=== PATIENT | female | born 1955 | race Caucasian/White ===

== ENCOUNTER → 2018-03-16 12:32 | Outpatient (CLI) | payer OTHER, SELFPAY ==
--- NOTE | 2018-03-16 | DI.MRI.S_ITS ---
PROCEDURE: MR KNEE RT WO CON INDICATIONS: RIGHT KNEE PAIN TECHNIQUE: Noncontrast sagittal PD fast spin echo and T2 fast spin echo with fat saturation, sagittal 3-D FLASH with fat saturation; coronal T1 spin echo and PD fast spin echo with fat saturation, and axial PD fast spin echo with fat saturation through the knee. COMPARISON: None. FINDINGS: Image quality: Excellent. Menisci: The medial and lateral menisci demonstrate mildly degenerated morphology and internal signal. The meniscal root ligaments appear intact. Cruciate ligaments: The anterior and posterior cruciate ligaments appear intact but there is elevated flow signal within the anterior cruciate ligament with indistinct margination of the fibrosis, but without elongation or rupture. Medial structures: The medial collateral ligament appears intact. The posterior oblique ligament, semimembranosus tendon insertions, oblique popliteal ligament, and meniscocapsular junction appear intact. Visualized portions of the pes anserinus tendons appear normal. No abnormal bursal fluid. Lateral structures: The lateral collateral ligament, long and short heads of the biceps femoris tendon appear intact. The popliteus tendon appears normal; the popliteofibular ligament appears intact. The posterosuperior and anteroinferior popliteomeniscal fascicles appear intact. The arcuate and fabellofibular ligaments appear intact, on either side of the lateral inferior geniculate artery. Iliotibial band appears normal. Anterior structures: The quadriceps and patellar tendons appear intact. Patellar alignment is normal. No femoral trochlear dysplasia or ventral trochlear prominence. No edema in the infrapatellar fat pad. Bones and cartilage: No bone marrow contusions or fractures. The cartilage of the medial and lateral femorotibial compartments, as well as the patellofemoral compartment, appears reduced to a mild degree in thickness. Joint space: There is mild excess of knee joint fluid, without intra-articular loose body. No Reed's cyst. Normal appearing synovial plicae are incidentally noted. IMPRESSION: Chronic mild to moderate degenerative change involves the thinning of the articular cartilage in all 3 compartments, but greater at the medial than the lateral compartment and minimal at the patellofemoral joint. Note is made of a mild joint effusion without loose body. No meniscal tear is found. There is indistinct margination of the clavicles of the anterior cruciate ligament, which demonstrates mild elevated internal fluid signal as the underlying cause. ACL elongation or rupture is not present and therefore old injury with chronic tendinosis is considered the likely cause. Dictated by: Julio C Isbell M.D. on 03/18/2018 at 16:23 Approved by: Julio C Isbell M.D. on 03/18/2018 at 16:29
== END ==
PROVIDERS: PCP Family Medicine; Visit Provider Orthopaedic Surgery
DX: M25.561 Pain in right knee (principal); M17.11 Unilateral primary osteoarthritis, right knee; M25.461 Effusion, right knee
CPT/HCPCS: 73721

== ENCOUNTER → 2018-11-27 07:56 | Outpatient (CLI) | payer OTHER, SELFPAY ==
--- NOTE | 2018-11-27 08:50 | PM.TREADMILL ---
Cardiac Stress Test Report Referral & Results Date Patient Seen: 11/27/18 Time Patient Seen: 08:30 Requesting provider: Cristobal Bruce Indication: SOB, Palpitations Rest ECG: NSR Procedure Note: Today following both written and verbal informed consent the patient was exercised according to a standard Shailesh protocol patient went for a total of 9 minutes 4 seconds achieving a maximum heart rate of 142 maximum systolic blood pressure of 164. This is approximately 10 METS. Exercise was terminated at this point because of fatigue. Patient was also given Cardiolite through a previously started Hep-Lock IV by the nuclear reactor operator approximately 1 minute prior to the cessation of exercise. No symptoms, no palpitations. Exercise capacity off scale and similar to a 40-year-old. Occasional PACs. Occasional PVCs with increasing frequency at higher heart rate. Diffuse [address] deviations resolving rapidly with rest. Impression: Intermediate probability for ischemia. Stokes treadmill score of 4 predicts 5 year survival rate of 90%. Will await perfusion imaging. Please note: Actual ECG tracings can be found in the PACS system.
--- NOTE | 2018-11-27 08:53 | P.PCN_ITS ---
Cardiac Stress Test Report Referral & Results Date Patient Seen: 11/27/18 Time Patient Seen: 08:30 Requesting provider: Cristobal Bruce Indication: SOB, Palpitations Rest ECG: NSR Procedure Note: Today following both written and verbal informed consent the patient was exercised according to a standard Shailesh protocol patient went for a total of 9 minutes 4 seconds achieving a maximum heart rate of 142 maximum systolic blood pressure of 164. This is approximately 10 METS. Exercise was terminated at this point because of fatigue. Patient was also given Cardiolite through a previously started Hep-Lock IV by the nuclear medicine pet ct technologist approximately 1 minute prior to the cessation of exercise. No symptoms, no palpitations. Exercise capacity off scale and similar to a 40-year-old. Occasional PACs. Occasional PVCs with increasing frequency at higher heart rate. Diffuse [address] deviations resolving rapidly with rest. Impression: Intermediate probability for ischemia. Stokes treadmill score of 4 predicts 5 year survival rate of 90%. Will await perfusion imaging. Please note: Actual ECG tracings can be found in the PACS system.
--- NOTE | 2018-11-28 14:47 | DI.NM.S_ITS ---
DATE OF SERVICE: 11/27/2018 PROCEDURE: Exercise perfusion study. INDICATIONS: Shortness of breath with underlying hypertension, hyperlipidemia, and diabetes mellitus. RADIOPHARMACEUTICAL: 25.0 mCi technetium-99m Myoview IV was injected at stress and 26.2 mCi technetium-99m Myoview IV was injected at rest. CARDIAC STRESS: Patient underwent exercise perfusion study under the supervision of an attending staff. She walked on Shailesh protocol for 9 minutes 04 seconds and achieved 90% of target heart rate with normal blood pressure response. No significant symptoms were reported other than felt fatigue. Baseline EKG revealed sinus rhythm with some nonspecific ST changes. Stress EKG did not reveal any convincing ischemic changes. As per the report, there were PVCs seen. However, on the rhythm strips available to me, I don't see any significant arrhythmias. Patient achieved 10.1 METs of workload RAW DATA: Significant breast shadow was seen. Patient's weight is 202 pounds. GATED STUDY: Resting LV ejection fraction 72%, and stress LV ejection fraction 76%. No obvious wall motion abnormalities. Resting end-diastolic volume is 101 mL. No transient ischemic dilatation. TID ratio is 0.92, which is within normal limits. Lung/heart ratio is 0.31, which is within normal limits. MYOCARDIAL PERFUSION SCAN: Stress supine, resting supine, and stress prone images were compared to each other. It appears to be that patient has very small, minimally decreased perfusion of mid anterior wall which appears to be fixed without any significant reversible ischemia. CONCLUSION: Patient has very small, minimally decreased perfusion of mid anterior wall which is predominantly fixed. Significant breast shadow seen during raw images. No obvious wall motion abnormalities. Normal wall motion goes against the diagnosis of previous transmural myocardial infarction. Most likely, we are dealing with persistent tissue attenuation artifact. No convincing ischemia. Good exercise tolerance. Patient walked on Shailesh protocol for 9 minutes 04 seconds. No significant ischemic EKG changes. Preserved left ventricular (LV) function. No transient ischemic dilatation. Overall, this is a low-risk myocardial perfusion scan. Winter Mcnamara - LUCIA/abe/ab doc#: [id number]/job#: [id number] dd: 11/28/2018 12:43:00 dt: 11/28/2018 14:38:00 DICTATING MD/COPIES TO: Patricia Cooper MD COPIES MNE: LAURA
== END ==
PROVIDERS: PCP Family Medicine; Visit Provider Family Medicine
DX: R06.02 Shortness of breath (principal); I10 Essential (primary) hypertension; E78.5 Hyperlipidemia, unspecified; E11.9 Type 2 diabetes mellitus without complications; R00.2 Palpitations
CPT/HCPCS: 78452; 93016; 93017; 93018; A9502

== ENCOUNTER 2020-03-03 11:08 | Emergency (ER) | payer MEDICARE, OTHER, SELFPAY ==
[2020-03-03 11:23] VITALS: BP 184/89; PULSE 78; RESP 22; TEMP 37.1; O2SAT 99; BMI 27.3
[2020-03-03 11:26] VITALS: PULSE 80
--- NOTE | 2020-03-03 11:26 | PC.NURSE ---
pt currently taking flexeril and prednisone for spasms.
--- NOTE | 2020-03-03 11:33 | ED.EXTPRO ---
HPI - Extremity Problem <Daniela RobisonYUE - Last Filed: 03/03/20 19:40> General Chief complaint: Extremity Problem,Nontraumatic Stated complaint: spasm on left side Time Seen by Provider: 03/03/20 11:09 Source: patient Mode of arrival: Wheelchair Limitations: no limitations History of Present Illness HPI Narrative: 64yo female presents to the ED for left-sided spasms ?. Patient has a history of left knee spasms for the past year. Approximately 2-3 years ago she had a spinal MRI that showed spinal stenosis and L4-L5. Patient has been doing physical therapy, she has a E stim at home, and she has been taking muscle relaxers for her knee spasms. She states she has seen multiple providers for this. However, over the past 3 weeks the knee spasms have increased to leg spasms. She states she has spasms and a ?sharp shooting pain that occurs on the left side of her hip, thigh, and left ankle. She denies any limited range of motion. She denies any aggravating or alleviating factors. She has been using ice and heat as well. Approximately a month ago she had a burst of steroids and states that this significantly improved her pain, however, the pain returned once the steroids were completed. She was seen in the walk-in clinic on 02/28/2020 and given steroids, she states she was unable to pick them up initially as they were ?ordered wrong ?. Patient states she took a cyclobenzaprine and a 20 mg prednisone pill this morning at approximately 8:00 a.m.. She states the pain has worsened. She denies any other symptoms such as back pain, loss of bowel or bladder control, saddle paresthesias, dizziness, fevers, chills, calf pain, nausea, vomiting, diarrhea, history of blood clots, or any other concerns. Related Data Home Medications Medication Instructions Recorded Confirmed [ACTONEL] 1 tab PO QMONTH #0 02/07/13 hydrochlorothiazide 25 mg PO QDAY #0 tab 02/07/13 Previous Rx's Medication Instructions Recorded cyclobenzaprine 7.5 mg tablet 7.5 mg PO TID #14 tab 02/28/20 prednisolone 5 mg (48 tabs) See Rx Instructions PO PER PKG DIR 02/28/20 tablets in a dose pack #48 each gabapentin 300 mg PO DAILY 14 Days #14 cap 03/03/20 Allergies Allergy/AdvReac Type Severity Reaction Status Date / Time Penicillins Allergy Severe Cardiac Verified 03/03/20 12:38 Arrest hydromorphone Allergy Intermediate Rash Verified 03/03/20 12:38 tramadol Allergy Rash Verified 03/03/20 11:29 zolpidem [From Ambien] AdvReac Severe Hallucinati Verified 03/03/20 12:38 ng Review of Systems <YUE Goode - Last Filed: 03/03/20 19:40> Review of Systems Narrative: REVIEW OF SYSTEMS: GENERAL: Denies fever or chills. HENT: No head trauma. CARDIOVASCULAR: No chest pain. RESPIRATORY: No shortness of breath or cough. GASTROINTESTINAL: No nausea or vomiting. GENITOURINARY: No flank pain. MUSCULOSKELETAL: Complains of left leg pain, see HPI. INTEGUMENTARY: No rash. NEURO: No numbness, tingling. Patient History <YUE Goode - Last Filed: 03/03/20 19:40> Medical History No significant medical problems (Acute) Social History Smoking Status: Never smoker Smoking Status: Never smoker alcohol intake frequency: 0-2 drinks per day Substance Use Type: does not use Exam <YUE Goode - Last Filed: 03/03/20 19:40> Initial Vital Signs Initial Vital Signs: Vital Signs Temperature 98.7 F 03/03/20 11:23 Pulse Rate 78 03/03/20 11:23 Respiratory Rate 22 03/03/20 11:23 Blood Pressure 184/89 H 03/03/20 11:23 Pulse Oximetry 99 03/03/20 11:23 PHYSICAL EXAMINATION: GENERAL: Well-groomed, alert and awake. Appears to be in pain, occasionally hyperventilating from pain but patient is easily distracted from pain with conversation. HENT: Normocephalic, atraumatic. EYES: Symmetrical, sclera white, no periorbital swelling. CARDIOVASCULAR: Regular rate. RESPIRATORY: Normal respiratory rate, trachea midline, airway patent. No stridor, nasal flaring or accessory muscle use. : No CVA tenderness. MUSCULOSKELETAL: No tenderness to palpation of left hip, knee, calf, ankle, or foot. Equal foot strength bilaterally with pronation and flexion. Able to lift left leg off the bed, minor increase of pain with leg elevation. Full passive range of motion of left hip without worsening pain. Normal gait and coordination. Equal tone and mass bilaterally. No spinal tenderness or deformities. EXTREMITIES: CMS intact. No pedal edema. Pedal pulses intact bilaterally, no erythema, swelling, or increased temp to left leg. SKIN: Warm, dry, soft, appropriate color for ethnicity. No lesions, rashes, or wounds. NEURO: Alert and Oriented X 3. No sensory deficits. PSYCH: Appropriate affect and mood. <Armani Izquierdo DO - Last Filed: 03/12/20 01:03> Initial Vital Signs Initial Vital Signs: Vital Signs Temperature 98.7 F 03/03/20 11:23 Pulse Rate 78 03/03/20 11:23 Respiratory Rate 22 03/03/20 11:23 Blood Pressure 184/89 H 03/03/20 11:23 Pulse Oximetry 99 03/03/20 11:23 Course <YUE Goode - Last Filed: 03/03/20 19:40> Course Course Narrative: L Knee MRI reviewed from 2018: Mild to moderate degenerative changes seen. 1142: Patient given Toradol and Valium to help with spasms in the ED. 1241: Patient states she is feeling better. States she is still having some pain. We discussed an additional dose of Valium as she does not feel tired at this time. Orders Ordered: Discontinued Medications Diazepam (Valium) 5 mg PO NOW ONE Stop: 03/03/20 11:30 Last Admin: 03/03/20 11:42 Dose: 5 mg Documented by: PADMINI Diazepam (Valium) 5 mg PO NOW ONE Stop: 03/03/20 12:37 Last Admin: 03/03/20 12:39 Dose: 5 mg Documented by: PADMINI Ketorolac Tromethamine (Toradol) 30 mg IM NOW ONE Stop: 03/03/20 11:30 Last Admin: 03/03/20 11:42 Dose: 30 mg Documented by: PADMINI Vital Signs Vital signs: Vital Signs - 8 hr 03/03/20 12:41 Pulse Rate 70 Respiratory Rate 14 Blood Pressure 151/82 H Pulse Oximetry 100 <Armani Izquierdo DO - Last Filed: 03/12/20 01:03> Orders Ordered: Discontinued Medications Diazepam (Valium) 5 mg PO NOW ONE Stop: 03/03/20 11:30 Last Admin: 03/03/20 11:42 Dose: 5 mg Documented by: PADMINI Diazepam (Valium) 5 mg PO NOW ONE Stop: 03/03/20 12:37 Last Admin: 03/03/20 12:39 Dose: 5 mg Documented by: PADMINI Ketorolac Tromethamine (Toradol) 30 mg IM NOW ONE Stop: 03/03/20 11:30 Last Admin: 03/03/20 11:42 Dose: 30 mg Documented by: PADMINI Vital Signs Vital signs: Vital Signs - 8 hr 03/03/20 12:41 Pulse Rate 70 Respiratory Rate 14 Blood Pressure 151/82 H Pulse Oximetry 100 MDM - Extremity (Nontraumatic) <YUE Goode - Last Filed: 03/03/20 19:40> Medical Records Attestation: I reviewed the patient's medical records. Lab Data Attestation: I reviewed the patient's lab results. Result diagrams: 03/03/20 11:45 03/03/20 11:45 Labs: Lab Results 03/03/20 03/03/20 Range/Units 11:45 11:45 WBC 12.1 H (4.5-11.0) X10^3/uL RBC 5.18 (4.0-5.2) X10^6/uL Hgb 15.6 (12.0-16.0) g/dL Hct 46.4 H (36-46) % MCV 89.5 (80-100) fL MCH 30.0 (26-34) PG MCHC 33.5 (30-36) % RDW 13.0 (11.6-14.8) % Plt Count 254 (150-400) X10^3/uL Neut % (Auto) 88.3 H (50-75) % Lymph % (Auto) 8.8 L (25-40) % [place] % (Auto) 2.2 L (3-14) % Eos % (Auto) 0.1 L (2-4) % Baso % (Auto) 0.6 (0-2) % Neut # (Auto) 88492 H (5370-1733) /uL Lymph # (Auto) 1100 (1777-8234) /uL [place] # (Auto) 300 (0-900) /uL Eos # (Auto) 0 (0-450) /uL Baso # (Auto) 100 (0-100) /uL Sodium 136 L (137-145) mmol/L Potassium 3.8 (3.4-5.1) mmol/L Chloride 100 (98-107) mmol/L Carbon Dioxide 24 (22-32) mmol/L BUN 20 H (7-17) mg/dL Creatinine 0.48 L (0.52-1.04) mg/dL Estimated GFR > 60.0 (>60) mL/min BUN/Creatinine Ratio 41.7 H (6-22) Glucose 126 H (80-110) mg/dL Calcium 10.1 (8.4-10.2) mg/dL Total Bilirubin 0.6 (0.2-1.3) mg/dL AST 29 (14-36) IU/L ALT 24 (<35) IU/L Alkaline Phosphatase 87 (38-126) U/L Total Protein 8.0 (6.3-8.2) g/dL Albumin 4.8 (3.5-5.0) g/dL Globulin 3.2 (1.7-4.1) g/dL Albumin/Globulin Ratio 1.5 (1.0-2.8) Imaging Data US - abdomen: Radiologist's Impression: [place] [id number] Ultrasound Report Signed Patient: Winter Mcnamara LMR#: [id number] : 5Acct:[id number] Age/Sex: 64 / FDate of Service: 03/03/20 Loc: ED Accession Number: [id number] Procedure: US periph venous low extrem lt Ordering Provider: Daniela Robison PROCEDURE: US PERIPH VENOUS LOW EXTREM LT INDICATIONS: LEFT LEG SPASM - RULE OUT DVT. TECHNIQUE: Real-time imaging, as well as color and pulse Doppler interrogation, were performed of the lower extremity deep veins from the inguinal ligament to the popliteal fossa. COMPARISON: None. FINDINGS: The common femoral, femoral and popliteal veins are normally compressible, and free of intraluminal thrombus. Color and pulse Doppler demonstrate normal phasic intraluminal flow. There is normal augmentation response to distal compression maneuver. IMPRESSION: No sonographic evidence of DVT. Sluggish flow and stasis in the superficial femoral vein and popliteal vein. Dictated by: Ronnie Yu M.D. on 03/03/2020 at 12:25 Approved by: Ronnie Yu M.D. on 03/03/2020 at 12:25 [facility] [place] Narrative Medical decision making narrative: 64y female presents to the ED for L leg spasming post >1 year of chronic knee spasming. Patient in pain, occasional hyperventilating upon arrival. Laboratory work ordered to rule out other causes of spasm such as electrolyte abnormalities or anemia, laboratory work was non-remarkable Ultrasound ordered to rule out DVT, which was negative. Patient has positive straight leg raise, she had worsening pain with laying flat which was better when she sat up and ankle. I suspect patient's pain is most likely coming from her sciatic nerve. Differential also includes pain from arthritis. Less concern for cauda equina due to lack of saddle paresthesias, limb weakness, loss of bowel or bladder control. Less concern for infection due to lack of erythema, no lesions, or deformities. No x-rays or imaging indicated at this time as all joints have full range of motion without pain to palpation. Patient was given a muscle relaxer in pain medication in the emergency department, pain did improve somewhat. She is prescribed gabapentin to help with nerve pain. She has an appointment with her PCP on Sunday, she was encouraged to continue with that appointment as planned and discussed further imaging and diagnostics if indicated. Patient agreed to plan of care, return precautions given. <Armani Izquierdo DO - Last Filed: 03/12/20 01:03> Lab Data Labs: Lab Results 03/03/20 03/03/20 Range/Units 11:45 11:45 WBC 12.1 H (4.5-11.0) X10^3/uL RBC 5.18 (4.0-5.2) X10^6/uL Hgb 15.6 (12.0-16.0) g/dL Hct 46.4 H (36-46) % MCV 89.5 (80-100) fL MCH 30.0 (26-34) PG MCHC 33.5 (30-36) % RDW 13.0 (11.6-14.8) % Plt Count 254 (150-400) X10^3/uL Neut % (Auto) 88.3 H (50-75) % Lymph % (Auto) 8.8 L (25-40) % [place] % (Auto) 2.2 L (3-14) % Eos % (Auto) 0.1 L (2-4) % Baso % (Auto) 0.6 (0-2) % Neut # (Auto) 33550 H (5874-1617) /uL Lymph # (Auto) 1100 (9823-3866) /uL [place] # (Auto) 300 (0-900) /uL Eos # (Auto) 0 (0-450) /uL Baso # (Auto) 100 (0-100) /uL Sodium 136 L (137-145) mmol/L Potassium 3.8 (3.4-5.1) mmol/L Chloride 100 (98-107) mmol/L Carbon Dioxide 24 (22-32) mmol/L BUN 20 H (7-17) mg/dL Creatinine 0.48 L (0.52-1.04) mg/dL Estimated GFR > 60.0 (>60) mL/min BUN/Creatinine Ratio 41.7 H (6-22) Glucose 126 H (80-110) mg/dL Calcium 10.1 (8.4-10.2) mg/dL Total Bilirubin 0.6 (0.2-1.3) mg/dL AST 29 (14-36) IU/L ALT 24 (<35) IU/L Alkaline Phosphatase 87 (38-126) U/L Total Protein 8.0 (6.3-8.2) g/dL Albumin 4.8 (3.5-5.0) g/dL Globulin 3.2 (1.7-4.1) g/dL Albumin/Globulin Ratio 1.5 (1.0-2.8) Discharge Plan Departure Patient Disposition: Home Clinical Impression: Sciatic leg pain, Muscle spasm Discharge Date/Time: 03/03/20 12:58 Instructions: DI for Sciatica, DI for Muscle Spasm Activity Restrictions/Additional Instructions: Thank you for entrusting me with your care today. As discussed, your laboratory work is non-remarkable and your ultrasound is negative for any blood clots. I suspect your pain is most likely coming from your sciatica nerve in your back along with the arthritis that is noted in your left knee, this nerve irritation can cause muscle spasms. Continue with the prednisone your prescribed from the walk-in clinic. I have given you a prescription for gabapentin, this helps with nerve pain. This medication can make you drowsy, do not drive with this medication. This medication was sent to [facility] in [place]. Please follow-up with your primary care provider as scheduled on Sunday to discuss further testing and follow-up. Return emergency department for any new or worsening symptoms. Prescriptions: New gabapentin 300 mg capsule 300 mg PO DAILY 14 Days Qty: 14 RF: 0 No Action prednisolone 5 mg (48 tabs) tablets,dose pack See Rx Instructions PO PER PKG DIR Qty: 48 RF: 0 cyclobenzaprine 7.5 mg tablet 7.5 mg PO TID Qty: 14 RF: 0 hydrochlorothiazide 25 MG tablet 25 mg PO QDAY Qty: 0 RF: 0 [ACTONEL] 1 tab PO QMONTH Qty: 0 RF: 0 Referrals: Cristobal Bruce DO [Primary Care Provider] - <Armani Izquierdo DO - Last Filed: 03/12/20 01:03> Cosign ED Attending Cosignature Attestation: I was immediately available in the department for consultation. This documentation has been reviewed and I agree with assessment and plan. Supervised by Armani Izquierdo DO
[2020-03-03] MEDS: diazePAM 5 MG TABLET PO ×2 (11:42→12:39)
[2020-03-03] MEDS: KETOROLAC 60 MG/2 ML VIAL 30 MG IM (11:42)
[2020-03-03 11:52] LABS: Add Manual Diff / Slide Review NO; Basophils Absolute Auto 100 /uL (0-100); Basophils Percent Auto 0.6 % (0-2); Eosinophils Absolute Auto 0 /uL (0-450); Eosinophils Percent Auto 0.1 % (2-4); Hematocrit 46.4 % (36-46); Hemoglobin 15.6 g/dL (12.0-16.0); Lymphocytes Absolute Auto 1100 /uL (1100-4500); Lymphocytes Percent Auto 8.8 % (25-40); Mean Corpuscular HGB Conc 33.5 % (30-36); Mean Corpuscular Volume 89.5 fL (80-100); Monocytes Absolute Auto 300 /uL (0-900); Monocytes Percent Auto 2.2 % (3-14); Neutrophils Absolute Auto 10700 /uL (1500-7000); Neutrophils Percent Auto 88.3 % (50-75); Platelet Count 254 X10^3/uL (150-400); Red Blood Cell Count 5.18 X10^6/uL (4.0-5.2); White Blood Cell Count 12.1 X10^3/uL (4.5-11.0)
[2020-03-03 11:59] LABS: Alanine Aminotransferase 24 IU/L (<35); Albumin 4.8 g/dL (3.5-5.0); Albumin Globulin Ratio 1.5 (1.0-2.8); Alkaline Phosphatase 87 U/L (38-126); Aspartate Aminotransferase 29 IU/L (14-36); BUN Creatinine Ratio 41.7 (6-22); Bilirubin Total 0.6 mg/dL (0.2-1.3); Blood Urea Nitrogen 20 mg/dL (7-17); Calcium 10.1 mg/dL (8.4-10.2); Carbon Dioxide 24 mmol/L (22-32); Chloride 100 mmol/L (98-107); Estimated Glomerular Filt Rate > 60.0 mL/min (>60); Globulin 3.2 g/dL (1.7-4.1); Glucose 126 mg/dL (80-110); HEMOLYSIS < 15 (0-50); Potassium 3.8 mmol/L (3.4-5.1); Sodium 136 mmol/L (137-145)
[2020-03-03 12:41] VITALS: BP 151/82; PULSE 70; RESP 14; O2SAT 100
== END 2020-03-03 12:58 | disposition home or self-care (01) ==
PROVIDERS: Emergency Provider Nurse Practitioner; PCP Family Medicine
DX: M54.32 Sciatica, left side (principal); M62.838 Other muscle spasm; M25.552 Pain in left hip; R06.4 Hyperventilation
CPT/HCPCS: 36415; 80053; 85025; 93971; 96372; 99284; J1885

== ENCOUNTER → 2020-03-10 07:40 | Outpatient (CLI) | payer MEDICARE, OTHER, SELFPAY ==
--- NOTE | 2020-03-10 | DI.MRI.S_ITS ---
PROCEDURE: MR LUMBAR SPINE WO CON INDICATIONS: Radiculopathy, lumbar region TECHNIQUE: Noncontrast sagittal T1 spin echo and T2 fast echo, sagittal STIR, axial T1 and T2 fast spin echo through the lumbar spine. In cases with scoliosis, additional coronal T2 fast spin echo may be performed. COMPARISON: None. FINDINGS: Image quality: Excellent. Alignment and Curvature: There is normal bony alignment. Bone Marrow: Marrow is of normal overall signal. No acute vertebral body compression fractures. Spinal Cord: Conus medullaris terminates at the L1-L2 level. Visualized cord demonstrates normal signal and size. Paraspinous Soft Tissues: No paravertebral masses. Incidental left parapelvic cysts. L1-L2: Normal appearance. L2-L3: Normal appearance. L3-L4: Normal appearance. L4-L5: No high-grade central canal stenosis. Partial effacement of both lateral recesses with bilaterally symmetric appearance . Severe left foraminal stenosis with nerve root compression. Mild right foraminal narrowing. L5-S1: Normal appearance. IMPRESSION: Severe left L4-L5 foraminal stenosis. Mild bilateral symmetric subarticular narrowing at the L4-L5 level. Dictated by: Edison Wynne M.D. on 03/10/2020 at 11:31 Approved by: Edison Wynne M.D. on 03/10/2020 at 11:35
== END ==
PROVIDERS: PCP Family Medicine; Referring Provider Family Medicine; Visit Provider Family Medicine
DX: M54.16 Radiculopathy, lumbar region (principal); M48.062 Spinal stenosis, lumbar region with neurogenic claudication
CPT/HCPCS: 72148

== ENCOUNTER → 2020-07-07 13:39 | Outpatient (CLI) | payer MEDICARE, OTHER, SELFPAY ==
[2020-07-07 14:27] LABS: Add Manual Diff / Slide Review NO; Basophils Absolute Auto 0 /uL (0-100); Basophils Percent Auto 0.5 % (0-2); Eosinophils Absolute Auto 100 /uL (0-450); Hematocrit 43.2 % (36-46); Hemoglobin 14.6 g/dL (12.0-16.0); Lymphocytes Absolute Auto 2200 /uL (1100-4500); Lymphocytes Percent Auto 32.7 % (25-40); Mean Corpuscular HGB Conc 33.8 % (30-36); Mean Corpuscular Hemoglobin 30.3 PG (26-34); Mean Corpuscular Volume 89.4 fL (80-100); Monocytes Absolute Auto 500 /uL (0-900); Monocytes Percent Auto 7.9 % (3-14); Neutrophils Absolute Auto 3900 /uL (1500-7000); Neutrophils Percent Auto 57.9 % (50-75); Platelet Count 239 X10^3/uL (150-400); Red Blood Cell Count 4.83 X10^6/uL (4.0-5.2); Red Cell Distribution Width 13.1 % (11.6-14.8); White Blood Cell Count 6.8 X10^3/uL (4.5-11.0)
[2020-07-07 14:47] LABS: Alanine Aminotransferase 26 IU/L (<35); Albumin 4.6 g/dL (3.5-5.0); Alkaline Phosphatase 69 U/L (38-126); Aspartate Aminotransferase 30 IU/L (14-36); BUN Creatinine Ratio 27.8 (6-22); Bilirubin Total 0.4 mg/dL (0.2-1.3); Blood Urea Nitrogen 22 mg/dL (7-17); Calcium 9.9 mg/dL (8.4-10.2); Carbon Dioxide 29 mmol/L (22-32); Chloride 100 mmol/L (98-107); Estimated Glomerular Filt Rate > 60.0 mL/min (>60); Globulin 2.3 g/dL (1.7-4.1); Glucose 100 mg/dL (80-110); HEMOLYSIS < 15 (0-50); Potassium 3.6 mmol/L (3.4-5.1); Sodium 139 mmol/L (137-145); Total Protein 6.9 g/dL (6.3-8.2)
[2020-07-07 18:03] LABS: Hemoglobin A1C% w Est Avg Glu 5.6 % (4.0-6.0)
== END ==
PROVIDERS: PCP Family Medicine; Referring Provider Orthopaedic Surgery Orthopaedic Surgery of the Spine; Visit Provider Orthopaedic Surgery Orthopaedic Surgery of the Spine
DX: Z01.818 Encounter for other preprocedural examination (principal); R73.9 Hyperglycemia, unspecified; Z01.812 Encounter for preprocedural laboratory examination
CPT/HCPCS: 36415; 80053; 83036; 85025; 93005

== ENCOUNTER → 2020-07-17 10:57 | Outpatient (CLI) | payer MEDICARE, OTHER, SELFPAY ==
[2020-07-17 12:55] LABS: COVID19 -Nasal RAPID Negative (Negative)
== END ==
PROVIDERS: PCP Family Medicine; Visit Provider Nurse Practitioner
DX: Z20.822 Contact with and (suspected) exposure to COVID-19 (principal)
CPT/HCPCS: 87635; C9803

== ENCOUNTER 2020-07-19 11:19 | Inpatient (IN) | payer MEDICARE, OTHER, SELFPAY ==
[2020-07-19] VITALS (17 sets, daily range): BP systolic 113–158; BP diastolic 69–89; PULSE 69–83; RESP 8–18; TEMP 36.2–37.3; O2SAT 4–100; BMI 28.6
--- NOTE | 2020-07-19 12:00 | PM.PREOP ---
Pre-operative Note COVID-19 COVID-19 status: Negative Result date/Date tested (Pos, Neg/Pending): 07/17/20 Interval Note History & Physical reviewed/Exam performed by Physician: Yes Changes to H&P: No
[2020-07-19] MEDS: CLINDAMYCIN 600 MG/50 ML PIGGYBACK 50 MG IV (12:32)
--- NOTE | 2020-07-19 13:18 | SUR.OPER ---
Prone on spine table, head in foam head support, padded chest and pelvic supports, gel pad at knees, lower legs supported by pillows; nipples, genitalia and toes free of pressure, arms secured on foam padded arm boards at <90 degrees abduction. Tape over blanket at thigh secured to table.
[2020-07-19] MEDS: BUPIVACAINE LIPOSOME 266 MG/20 ML VIAL INJ (13:24)
[2020-07-19] MEDS: BUPIVACAINE 0.5% W/ EPI (PF) 30 ML VIAL INJ (13:26)
[2020-07-19] MEDS: LACTATED RINGERS 1,000 ML 42 ML IV (14:36)
--- NOTE | 2020-07-19 15:13 | P.OP_ITS ---
Operative Date/Time/Diagnoses Date of procedure: 07/17/20 Time of procedure: 13:13 Pre-op diagnosis: 1. L4-5 spinal stenosis 2. L4-5 spondylosis with radiculopathy Post-op diagnosis: same Procedure & Clinicians Procedure: 1. L4-5 Postero-lateral and posterior interbody fusion 2. L4-5 interbody cage placement. 3. L4-5 decompressive laminectomy with bilateral facetecomies 4. L4-5 Posterior non-segmental instrumentation 5. [facility] of bone marrow from iliac crest 6. Utilization of microsurgical technique and operating microscope Same procedure as scheduled: Yes Indications: Patient has been having chronic back pain and worsening lumbar radiculopathy. Patient failed multiple conservative management with worsening pain weakness and numbness in her lower extremity. Patient has been having difficulty performing activity of daily living. After discussing risks benefits of treatment options, patient elected proceed with surgery. Surgeon: Janice Hugo Vp Cardiovascular Service Line: Amparo Cantrell'Brien Click Yes if Unassisted: No Anesthesia Type: General Operative Notes Closure Type: primary Specimen(s): none sent Prosthetic devices, grafts, tissues, transplants, or devices: Globus revolve screws, Rise cage Estimated Blood Loss (mL): 50 Procedure in detail: Patient was seen in the preoperative area. Risks and benefits of the surgery was discussed with the patient. Informed consent was obtained from the patient and placed in the chart. Surgical site was marked. Patient was taken to the operative room. General anesthesia was administered. Prophylactic antibiotic was given to the patient less than 30 min before the incision was made. Patient was placed into a prone position on the Manny table. Patient's back was then prepped and draped in the sterile fashion. Time- out was performed at this time. Using AP and lateral C-arm imaging the interval between L4-5 was identified and marked on patient's back. A 2 inch incision 2 in from midline was made on the Left side first. The fascia was incised in line with skin incision. Globus MARS retractors was placed inside the incision and docked onto the L4 lamina. Using microsurgical technique and operating microscope, a L4 laminectomy and L4-5 facetectomy was performed using a Kerrison rongeur. Patient was found have severe left L4-5 neural foramen stenosis. A total facetectomy at L4-5 level on the left was performed in order to fully decompress the neural foramen and the L4 nerve root. After the facetectomy was completed level was found to be grossly unstable and required a fusion procedure at the same time. The L4-5 The disc space at L4-5 was identified. And a total diskectomy was performed at L4-5 level. The endplates were decorticated using a rasp and shaver. The total diskectomy and decortication was performed at L4-5 level in order to to accomplish a L4-5 fusion. The local bone from the laminectomy and facetectomy was saved for local bone grafting. After the total diskectomy and decortication was completed, Trifecta bone graft material was combined with local bone that was harvested earlier. At this time, a separate skin is incision was made over the iliac crest. A Jamshidi needle was inserted into the iliac crest through a separate skin incision. 5 cc of bone marrow aspiration was obtained through the separate skin incision using a Jamshidi needle from the iliac crest. The bone marrow aspiration was combined with local bone and the Trifecta bone grafting material. The bone grafting material was placed into the L4-5 interbody space along with a expandable cage. The cage was expanded to its maximum height using the torque limiting screwdriver. At this time a mirror image incision was made on the left side. The fascia was incised in line with the skin incision. Globus MARS retractor was inserted and docked onto the L4-5 posterolateral gutter. Using the power drill, posterior- lateral decortication was performed at L4-5 level until bleeding cortical bone was identified. The remaining bone grafting material was placed into the L4-5 posterior lateral gutter he order to accomplish posterolateral fusion at the L4- 5 level. Using the double C-arm technique, pedicle screws were placed into the L4-5 pedicles bilaterally. This was done by placing the Jamshidi needle into the pedicles, then placing the guidewires over the Jamshidi needle, and finally placing the cannulated screws over the guidewires bilaterally. After the pedicle screws were placed, 2 titanium rods was locked into the heads of the pedicle screws using locking caps and torque limiting screwdriver. After all the hardware was placed, and confirmed with AP and lateral C-arm imaging, the wound was then irrigated with sterile normal saline and packed with Ray-Andria gauze for 3 min to accomplish hemostasis. After the gauze was removed the deep fascia was closed with #1 Vicryl suture. The subcutaneous layer was closed with 2-0 Vicryl. The skin was closed with skin lowell. Patient tolerated the procedure well. There were no complications. Complications: none Post-operative Condition: stable Disposition: PACU Plan for aftercare: Admit to inpatient hospital
--- NOTE | 2020-07-19 15:14 | DI.RAD.S_ITS ---
PROCEDURE: XR LUMBAR SPINE 2-3V INDICATIONS: L4-5 TLIF TECHNIQUE: 2 intraoperative fluoroscopic views of the lumbar spine were acquired. COMPARISON: None. FINDINGS: Intraoperative fluoroscopic images of lower lumbar spine shows transpedicular fusion and intervertebral spacer placement at L4-5 level. IMPRESSION: Fluoro guidance was provided intraoperatively for posterior fusion at L4-5 level. Dictated by: Anselmo Caballero M.D. on 07/19/2020 at 14:42 Approved by: Anselmo Caballero M.D. on 07/19/2020 at 14:47
[2020-07-19] MEDS: HYDROMORPHONE 2 MG INJ IV ×3 (15:30→15:52)
[2020-07-19] MEDS: OXYCODONE/ACETAMINOPHEN 5/325 TABLET 1 TAB PO ×2 (15:34→16:04)
[2020-07-19] MEDS: fentaNYL 100 MCG/2 ML INJ IV ×2 (15:42→15:55)
[2020-07-19] MEDS: hydrOXYzine 50 MG/ML INJ 25 MG IM (16:12)
[2020-07-19] MEDS: LORazepam 2 MG/ML INJ 0.5 MG IV (16:22)
--- NOTE | 2020-07-19 17:26 | SUR.PHASEI ---
Pt arrived from OR, stated pain was pressure in her back, medicated for pain and spasms. Order for vistaril obtained and given. Pt's friend was visiting who works here and pt's anxiety appeared to increase to the point of tears and near hyperventillation. Medicated with 0.5 mg ativan and asked friend to leave. Pt was able to then do relaxation and breathing techniques to calm anxiety and rest. Required 4L O2 to maintain sats, report to Katharina ELLSWORTH in [facility]. Pt transferred to Room 218 without issue.
[2020-07-19] MEDS: SODIUM CHLORIDE 0.9% 1,000 ML 100 ML IV (17:41)
[2020-07-19] MEDS: CEFAZOLIN 2 GM/100 ML FROZ.PIGGY IV (19:56)
[2020-07-19] MEDS: OXYCODONE IR 10 MG TABLET PO ×2 (19:56→23:45)
[2020-07-19] MEDS: GABAPENTIN 300 MG CAPSULE PO (21:05)
[2020-07-19] MEDS: DOCUSATE 100 MG CAPSULE PO (21:05)
[2020-07-19] MEDS: SENNOSIDES 8.6 MG TABLET 17.2 MG PO (21:05)
[2020-07-19] MEDS: ACETAMINOPHEN 325 MG TABLET 650 MG PO (22:46)
--- NOTE | 2020-07-19 23:15 | PC.NURSE ---
On unit at 17:20.VSS. A&0 x4. Pain 5/10, given 10 mg PRN oxy which provided relief. NS @ 100ml/hr. Dressing on back cdi. 1 person assist.Call light within reach.
[2020-07-20] MEDS: OXYCODONE IR 10 MG TABLET PO ×7 (03:26→23:49)
[2020-07-20 04:12] VITALS: BP 127/57; PULSE 68; RESP 18; TEMP 36.4; O2SAT 100
[2020-07-20] MEDS: CEFAZOLIN 2 GM/100 ML FROZ.PIGGY IV (04:43)
[2020-07-20 05:51] LABS: Hematocrit 39.2 % (36-46); Hemoglobin 13.3 g/dL (12.0-16.0)
[2020-07-20 07:13] VITALS: BP 116/60; PULSE 65; RESP 16; TEMP 36.1; O2SAT 99
--- NOTE | 2020-07-20 08:12 | PM.PNPO.1 ---
Subjective Subjective Date Patient Seen: 07/20/20 Time Patient Seen: 08:12 Interval history: Postop day 1. Status post L4-[address] Hugo. Patient's pain has been well controlled but states this morning she developed significant spasms in her back. She notes continued numbness of right big toe and left anterior thigh. She has mobilized in her room. She states she has 15 stairs to get into her home. Exam Vital Signs (past 8 hours): - 07/20/20 04:12 07/20/20 07:13 Temperature 97.5 F L 96.9 F L Pulse Rate 68 65 Respiratory Rate 18 16 Blood Pressure 127/57 L 116/60 Pulse Oximetry 100 99 Oxygen Delivery Method Room Air Oxygen Flow Rate 4 Narrative Exam Narrative: Patient lying in bed no acute distress. She is alert orient x3. Calves are soft, compressible, nontender bilaterally. SCDs on and functioning. Decreased sensation at L4 dermatome. She is able to actively dorsiflex and plantar flex. Objective Labs Result Diagrams: 07/20/20 05:30 Labs: Laboratory Results - last 24 hr 07/20/20 05:30 Hgb 13.3 Hct 39.2 PFSH Medical History Foot drop, left Hyperlipidemia Hypertension Leiomyosarcoma (~2008) Prediabetes PVC (premature ventricular contraction) Rectocele Spinal stenosis of lumbar region with radiculopathy Trigger finger of thumb Surgical History History of cholecystectomy History of total hysterectomy History of tubal ligation Social History household members: spouse Smoking Status: Never smoker alcohol intake: current Assessment & Plan Post-op Postoperative Procedures: Procedures Operation Date: 07/19/20 12:45 Actual Procedures Side Surgeon p L4-5 TLIF Janice Hugo MD patient will mobilize with physical therapy today. No excessive bending, lifting, or twisting. Continue current pain control. Encourage Vistaril use for muscle spasms. If patient is safe to mobilize with adequate pain control she can go home today.
[2020-07-20] MEDS: hydrOXYzine pamoate 25 MG CAPSULE PO ×4 (08:28→20:47)
[2020-07-20] MEDS: MAGNESIUM OXIDE 400 MG TABLET PO (08:33)
[2020-07-20] MEDS: CHOLECALCIFEROL (VITAMIN D3) 1,000 UNIT TABLET 2000 UNIT PO (08:33)
[2020-07-20] MEDS: DOCUSATE 100 MG CAPSULE PO ×2 (08:33→20:48)
[2020-07-20] MEDS: MULTIVITAMIN 1 TABLET 1 TAB PO (08:34)
[2020-07-20] MEDS: GABAPENTIN 300 MG CAPSULE PO ×3 (08:34→20:48)
[2020-07-20] MEDS: POTASSIUM CHLORIDE 20 MEQ TAB PO (08:34)
[2020-07-20] MEDS: CHLORTHALIDONE 25 MG TABLET PO (08:37)
[2020-07-20] MEDS: MAGNESIUM HYDROXIDE 30 ML UDC PO (08:37)
[2020-07-20] MEDS: MORPHINE 2 MG/ML INJ IV ×3 (09:28→16:52)
--- NOTE | 2020-07-20 09:55 | PT.IIE ---
Current Diagnoses Foot drop, left foot (07/19/20) Spinal stenosis, lumbar region without neurogenic claudication (07/19/20) Surgery Performed Operation Date: 07/19/20 12:45 Actual Procedures p L4-5 TLIF - Janice Hugo MD Surgical History (Last Reviewed 07/20/20 @ 08:14 by Amparo Pimentel PA-C) History of cholecystectomy History of total hysterectomy History of tubal ligation Medical History (Last Reviewed 07/20/20 @ 08:14 by Amparo Pimentel PA-C) Foot drop, left Hyperlipidemia Hypertension Leiomyosarcoma (~2008) Prediabetes PVC (premature ventricular contraction) Rectocele Spinal stenosis of lumbar region with radiculopathy Trigger finger of thumb Physical Therapy Inpatient Evaluation/Re-Eval M1 PT/OT-IP Prior Functional Status Start: 07/20/20 12:33 Freq: NEEDED Status: Active Protocol: Document 07/20/20 09:55 AB (Rec: 07/20/20 12:45 AB [email or web address]) Medical Review Prior Functional Status Medical History Reviewed Yes Communication able to make needs known Mobility and Gait pt stated that she is independent with all mobilities and ambulation without AD but usually furniture cruises Social History Household Members spouse Living Arrangements House Number of Floors (Floors) Two Floors Number of Stairs To Enter/Railing? pt stays on main level of the house has 15 steps to enter with bilateral wide rails and can only hold on to one rail at a time Home Environment Standard Height Toilet,Walk in Shower Home Equipment Straight Cane Additional Social History Comment pt stated that she has access to a bed cane and a FWW M2 PT-IP Current Condition Start: 07/20/20 12:33 Freq: NEEDED Status: Active Protocol: Document 07/20/20 09:55 AB (Rec: 07/20/20 12:45 AB [id number]) Physical Therapy Current Condition Current Condition Evaluation Date 07/20/20 Treatment Diagnosis s/p L4-5 fusion/lami; difficulty in walking Onset Date 07/19/20 Precautions Lumbar Precautions Log Roll,No Twisting,Limit Bending,Lifting Restriction of 10 lbs,Gait Belt above Incisional Area M3 PT-IP Subjective Start: 07/20/20 12:33 Freq: NEEDED Status: Active Protocol: Document 07/20/20 09:55 AB (Rec: 07/20/20 12:45 [email or web address]) Subjective Physical Therapy Visit Type Type Initial Evaluation Visit Start Time 09:55 Visit Stop Time 10:35 Total Visit Minutes 40 Number of GREY ROLL MAN Visits 0 Physical Therapy Visit Comments Patient Comments c/o increase back pain but agreed to do PT Therapy Pain Assessment Pain When Pain Assessed At Rest Pain Present Pain Present Pain Reported Location back Intensity 6 Scale Used increases to 8/10 with mobility Pain Behaviors Guarding,Holding Area,Moaning, Wincing Pain Management Techniques Apply Cold,Distraction, Modification of Treatment,Re- positioning,Timing of Activity with Medications M4 PT-IP Mobility and Gait Start: 07/20/20 12:33 Freq: NEEDED Status: Active Protocol: Document 07/20/20 09:55 (Rec: 07/20/20 12:45 [email or web address]) PT-Bed Mobility Assessment Rolling Type of Rolling Log Rolling Level of Assist Minimal Assistance Supine to Sit Supine to Sit Minimal Assistance Sit to Supine Sit to Supine Minimal Assistance PT-Transfer Assessment Sit to and From Stand Sit to and from Stand Minimal Assistance,1 Person Assistance,Use of Upper Extremities Equipment Transfer Assistive Device Gait Belt,Front Wheeled Walker Orthotic/Prosthetic Devices or Brace: No Transfers Transfer Destination Toilet Transfer Technique ambulated using FWW Transfer Ability Level of Assist Minimal Assistance,1 Person Assistance,Use of Upper Extremities Comments Mobility Comments pt educated on back precautions and log roll bed mobility. completed supine to sit min A and cues. pt was able to sit on EOB SBA. completed sit to stand min A and requested to use the toilet. ambulated using FWW to the toilet min A and cues. required min A for sit to stand from the toilet using grab bar and CGA to maintain standing balance while completing hygiene care and brief management. completed ambulation towards the sink using FWW min A and was able to maintain standing by the sink CGA to min A while completing handwashing. pt agreed to do more ambulation and completed ~ 40 ft using FWW min A. pt requested to go back to bed. completed sit to supine min A and cues log roll. positioned in bed. call light and table placed within reach. Left pt with spouse in room. nurse aware of increase back pain. Gait Assessment Gait Gait Assistance Required: Minimum Assistance Distance (Feet) 40 Able to Maintain Weight Bearing Status Yes During Gait Assistive Devices Assistive Device Gait Belt,Front Wheeled Walker Orthotic/Prosthetic Devices or Brace: No Gait Deviations General Gait Pattern Antalgic,Decreased Stride Length,Decreased Feet Clearance Factors Limiting Gait Function Factors Limiting Gait Function Decreased Activity Tolerance, Decreased Sensation,Decreased Strength,Limited Range of Motion,Pain,Poor Balance,Poor Safety Awareness PT-Balance Assessment Sitting Balance and Reactions Static Sitting Balance Ability Good Dynamic Sitting Balance Ability Good Standing Balance and Reactions Static Standing Balance Ability Fair Dynamic Standing Balance Ability Fair Device Used FWW M5 PT-IP Objective Assessments Start: 07/20/20 12:33 Freq: NEEDED Status: Active Protocol: Document 07/20/20 09:55 AB (Rec: 07/20/20 12:45 AB [email or web address]) Orientation Orientation/Cognition Level of Alertness Alert Orientation Name Safety Awareness Decreased Safety Awareness Gross Range of Motion Lower Extremity ROM Assessment Within Functional Limits Strength Lower Extremity Strength Assessment Bilaterally Impaired Comments Strength Comments RLE: 3+/5 LLE: 4-/5 Sensation Assessment Sensation Sensation Description Numbness Comments Sensation Comments numbness: L big toe and anterior lateral thigh area Muscle Tone Muscle Tone WNL Yes M6 PT-IP Treatment Start: 07/20/20 12:33 Freq: NEEDED Status: Active Protocol: Document 07/20/20 09:55 AB (Rec: 07/20/20 12:45 AB [email or web address]) Physical Therapy Treatment Education Education Provided Precautions,Weight Bearing Status,Post-Op Packet,Safety M7 PT-IP Assessment and Plan Start: 07/20/20 12:33 Freq: NEEDED Status: Active Protocol: Document 07/20/20 09:55 AB (Rec: 07/20/20 12:45 AB [email or web address]) PT Summary Assessment and Plan Potential Rehabilitation Potential Good Status of Condition at Evaluation Evolving Summary Impairments Pain,ROM,Strength,Balance, Coordination,Sensation,Tone, Cognition,Bed Mobility, Transfers,Gait,Activity Tolerance Assessment Summary pt requiring min A and cues but was not able to tolerate much activity due to c/o increase back pain to 8/10. pt will likely improve mobility one pain is controlled. pt plans to go home and spouse to assist her. will conduct caregiver training when appropriate and will also complete stair climbing training prior to d/c. Goals Bed Mobility Goal Independent Transfer Goal Independent,Front Wheeled Walker Gait Goal Independent,Front Wheel Walker Gait Distance 200 Other Goals up/down 15 steps 1 rail SBA Days to Meet Goals 5 Frequency of Treatment Frequency Of Treatment Twice a Day Treatment Plan Physical Therapy Treatment Plan Bed Mobility Training,Transfer Training,Gait Training, Therapeutic Exercise,Balance Retraining,Post Op Education, Discharge Planning,Hot or Cold Pack,Neuromuscular Re-ed, Coordination Retraining,Manual Therapy Precautions Lumbar Precautions Log Roll,No Twisting,Limit Bending,Lifting Restriction of 10 lbs,Gait Belt above Incisional Area Recommendations To Nursing Amount of Assist Needed 1 Person Assist Discharge Recommendations PT Discharge Recommendations Home with Assistance, Outpatient PT Transportation Needs at Discharge Private Vehicle
[2020-07-20 11:14] VITALS: BP 125/60; PULSE 68; RESP 18; TEMP 35.9; O2SAT 99
--- NOTE | 2020-07-20 12:58 | PC.NURSE ---
Day shift: Pt has been having pain control issues. Medicated per MAR with PO and IV pain meds. Has been OOB with PT/OT but grunts and groans noted along w/ facial grimacing. Tolerating food and drink. Good urine output. No BM but reports passing flatus. CMS intact and PPP. Dressing has shadow drainage but is intact. Pt does report that Dilaudid causes her itching so that may not be an option for pain control. Pt not safe to d/c today and this is r/t pain control. Tolerating SCd's and using I.S. as directed. Will continue w/ plan of care.
--- NOTE | 2020-07-20 14:00 | OT.IP.EVAL ---
Current Diagnoses Foot drop, left foot (07/20/20) Spinal stenosis, lumbar region without neurogenic claudication (07/20/20) Surgery Performed Operation Date: 07/19/20 12:45 Actual Procedures p L4-5 TLIF - Janice Hugo MD Past Medical History (Last Reviewed 07/20/20 @ 08:14 by Amparo Pimentel PA-C) Foot drop, left Hyperlipidemia Hypertension Leiomyosarcoma (~2008) Prediabetes PVC (premature ventricular contraction) Rectocele Spinal stenosis of lumbar region with radiculopathy Trigger finger of thumb Surgical History (Last Reviewed 07/20/20 @ 08:14 by Amparo Pimentel PA-C) History of cholecystectomy History of total hysterectomy History of tubal ligation Occupational Therapy Inpatient Evaluation/Re-Eval M1 PT/OT-IP Prior Functional Status Start: 07/20/20 14:04 Freq: NEEDED Status: Active Protocol: Document 07/20/20 14:04 [facility] (Rec: 07/20/20 14:27 [facility] [id number]) Medical Review Prior Functional Status Medical History Reviewed Yes Communication able to make needs known Mobility and Gait pt stated that she is independent with all mobilities and ambulation without AD but usually furniture cruises Activities of Daily Living and IADL's pt states was able to do ADL's but having a more difficult time with it. Social History Household Members spouse Living Arrangements House Number of Floors (Floors) Two Floors Number of Stairs To Enter/Railing? pt stays on main level of the house has 15 steps to enter with bilateral wide rails and can only hold on to one rail at a time Home Environment Standard Height Toilet,Walk in Shower Home Equipment Straight Cane M2 OT-IP Current Condition Start: 07/20/20 14:04 Freq: Status: Active Protocol: Document 07/20/20 14:04 [facility] (Rec: 07/20/20 14:27 [facility] [id number]) Occupational Therapy Current Condition Current Condition Evaluation Date 07/20/20 Treatment Diagnosis S/P L4-L5 TLIF, spinal stenosis, decreased mobility Diagnosis Onset Date 07/19/20 Post Operative Precautions Lumbar Precautions Log Roll,No Twisting,Limit Bending,Lifting Restriction of 10 lbs,Gait Belt above Incisional Area M3 OT- IP Subjective and Pain Start: 07/20/20 14:04 Freq: Status: Active Protocol: Document 07/20/20 14:04 [facility] (Rec: 07/20/20 14:27 [facility] [id number]) OT- Subjective Occupational Therapy Visit Type Type Initial Evaluation Visit Start Time 13:35 Visit Stop Time 14:00 Total Visit Minutes 25 Occupational Therapy Visit Comments Patient Comments Pt agreed to get up to use the bathroom, pt's present and caregiver training initiated. Patient/Caregiver Goals To go home. OT Pain Assessment Pain When Pain Assessed During Mobility Pain Present Pain Present Pain Reported Location back Intensity 7 Scale Used Numeric (0 - 10) M4 OT- IP ADL's Start: 07/20/20 14:04 Freq: Status: Active Protocol: Document 07/20/20 14:04 [facility] (Rec: 07/20/20 14:27 [facility] [id number]) OT ADL-Grooming General Evaluation Grooming Ability Standby Assistance OT ADL-Oral Care General Eval Oral Care Ability Standby Assistance Comments Oral Care Comments Educated pt best to just spit into a cup to best follow her back precautions. OT ADL-Dressing General Eval Lower Body Dressing Ability Maximum Assistance Areas Needing Assistance Shoes Comments OT Dressing Comments Assist to get her slippers on. OT ADL-Toileting General Evaluation Toileting Ability Standby Assistance,Minimal Assistance Areas Needing Assistance Perform Perineal Hygiene Devices Toileting Assistive Devices Grab Bars Comments OT Toileting Comments Pt able to wipe form the front and having difficulty from the back with follow through of back precautions. Pt states will use wipes and wears pads at night. Pt needing CGA for balance while pulling up and down her brief. IN addtion she states her will assist her if needed. OT ADL-Bathing Comments OT Bathing Comments To attempt tomorrow when pt's pain is more appropriate. M5 OT- IP IADL's Start: 07/20/20 14:04 Freq: Status: Active Protocol: Document 07/20/20 14:04 [facility] (Rec: 07/20/20 14:27 [facility] [id number]) OT-Instrumental Activities of Daily Living Home Safety Awareness Awareness of Need for Assistance at Home Good Awareness Ability to Problem Solve Emergency Able to Problem Solve Situations Medication Management Medication Management No Deficits Identified Money Management Money Management No Deficits Identified Meal Preparation Meal Preparation Caregiver Provides Assist Manager Dairy Manager Dairy Caregiver Provides Assist M6 OT- IP Functional Cognition Start: 07/20/20 14:04 Freq: Status: Active Protocol: Document 07/20/20 14:04 [facility] (Rec: 07/20/20 14:27 [facility] [id number]) Cognitive Factors Limiting Selfcare Function Cognitive Ability Level of Alertness Alert Patient Orientation Name,Age,Birthday,Month,Date, Year,Day of Week,Place, Situation Attention Span Ability Capable of Focused Attention, Capable of Sustained Attention Ability to Follow Commands Able to Follow Multi-Step Commands Memory Description No Deficits Noted Safety Awareness No Deficits Noted Cognitive Comments Cognitive Assessment Comments At this time, pt needing safety reminders for FWW use and to make sure to push from the bed before standing up to grab the FWW. OT- Vision and Hearing OT- Hearing Assessment OT- Hearing Assessment WFL OT- Vision Assessment Visual Acuity Glasses All The Time M7 OT- IP Mobility and Balance Start: 07/20/20 14:04 Freq: Status: Active Protocol: Document 07/20/20 14:04 [facility] (Rec: 07/20/20 14:27 [facility] [id number]) OT- Bed Mobility Assessment Rolling Type of Rolling Roll to Left Supine to Sit Supine to Sit Assist Standby Assistance,Bedrails Sit to Supine Sit to Supine Assist Moderate Assistance,1 Person Assistance OT-Transfer Assessment Sit to and From Stand Sit to and from Stand Minimal Assistance Transfers Transfer Ability Minimal Assistance Technique Transfer Destination Bed,Toilet Transfer Technique Stand Step Pivot Devices Transfer Assistive Devices Gait Belt,Front Wheeled Walker Comments Mobility Comments Pt states to possible get a bed cane, however able to try FWW to pull to as able to steady the FWW. Pt needing MODA to help get her legs back into bed. Able to educated pt's on how to [place]/doff the gait belt. Pt 's a little confused with the gait belt andn pt ended up tightening the belt on her own. Educated how to assist pt from sit to stand and transfers. Pt's tends to assist too much or not assist at all. Pt able to communicate with her of what assist is needed. Pt's will continue to benefit from more caregiver training prior to going home. OT- Gait Assessment Comments Gait Ability Comments CGA-LEMUEL with FWW OT- Balance Assessment Sitting Balance and Reactions Static Sitting Balance Ability Normal Dynamic Sitting Balance Ability Good Standing Balance and Reactions Static Standing Balance Ability Fair M8 OT- IP Objective Assessments Start: 07/20/20 14:04 Freq: Status: Active Protocol: Document 07/20/20 14:04 [facility] (Rec: 07/20/20 14:27 [facility] [id number]) OT-Muscle Tone Assessment Muscle Tone WNL Yes M9 OT- IP Assessment and Plan Start: 07/20/20 14:04 Freq: Status: Active Protocol: Document 07/20/20 14:04 [facility] (Rec: 07/20/20 14:27 [facility] [id number]) OT Summary Assessment and Plan Potential Rehabilitation Potential Good Analytic Complexity at Evaluation Low Summary OT Impairments Pain,Functional Mobility, Dressing,Toileting,Bathing, Toilet Transfers,Shower Transfers,Activity Tolerance Progress Towards Goals Progressing Toward Goals,Slow Progress due to Pain Assessment Summary Pt low complexity and main barrier are steps, pain and spasms, and now needing assist for mobility and ADl needs. Pt has a supportive but would benefit from more caregiver training. Training was initiated by OT for ADL, bed mobility, transfers, and gait belt management. Pt to go home with 's assist when medically stable. Goals Grooming Goal Independent Dressing Goal Independent Toileting Goal Independent Bathing Goal Standby Assistance Toilet Transfer Goal Independent Shower Transfer Goal Independent Patient/Caregiver Education Goal Demonstrate Post-Op Precautions,Caregiver Independent Assisting Patient Days to Meet Goals 5 Frequency of Treatment Frequency Of Treatment Once a Day Treatment Plan OT Treatment Plan ADL Training,Functional Cognition Training,Functional Mobility,Patient/Family Education,Discharge Planning Other Treatment Recommendations and Next caregiver training Treatment Focus Discharge Recommendations OT Discharge Recommendations Home with Assistance Home Equipment Needs shower chair, LB dresing equipment, bed cane? Transportation Needs at Discharge Private Vehicle
[2020-07-20] MEDS: CYCLOBENZAPRINE 10 MG TABLET 5 MG PO (14:15)
--- NOTE | 2020-07-20 14:47 | CM.DANOTE ---
DCP ASSESSMENT: Patient is a 64 year-old female admitted to hospital for L4-5 TLIF. PCP is Cristobal Bruce. Primary payer is Medicare and [employer]. Therapy recommends home with assistance. CLOTHING PATTERNMAKER Student met with patient at bedside with Harjinder present. Patient is alert and oriented this date. Educated patient on role of social work in D/C planning. Patient is independent with ADL?s at baseline including driving. She has 15-stairs to navigate she does not feel confident today to navigate them due to complains of pain and spasms. She has a post-op appointment with Dr. Hugo scheduled on JUL 25. She confirmed , mother and daughter will all be able to provide help and support at home. OT has provided caregiver training for functional transfers. Harjinder Mcnamara will provide transportation at time of D/C. PLAN: Anticipate D/C home with . CM Team to continue to follow patient. CHARU Duff, CHARU Student. Discharge Planning/Care Management CM Discharge Assessment Start: 07/20/20 11:22 Freq: Status: Active Protocol: Document 07/20/20 11:23 AL (Rec: 07/20/20 11:25 AL [id number]) Discharge Planning Assessment Assigned Bioinformatics Support Specialist CHARU Roper Student Contact Information pato Leone # [phone] Advance Directives? No History Provided By Patient,Significant Other, Medical Record Has Patient been admitted in last 30 No days? Prior Living Arrangements House Household Members spouse Type of transporation used prior to Drives own vehicle admit Independent with ADL's Yes Is patient alert and oriented? Yes Barriers to Discharge No Discharge Plan Home Transportation Arrangement Patients Harjinder Mcnamara will provide transportation at time of D/C Referrals Initiated None needed Whiteboard Updated in Patient Room with Yes name and ext. # of Bioinformatics Support Specialist Review Status In Process Pre-Anesthesia Assessment Start: 07/13/20 16:49 Freq: Status: Active Protocol: Document 07/13/20 16:49 VLJ (Rec: 07/13/20 16:54 VLJ [id number]) Pre-Anesthesia Assessment Preferred Name Winter Patient Information Reviewed Via Chart Review,Phone Assessment Assessment Completed With Patient Diagnostic Results BMP/CMP,CBC,EKG,Urinalysis Primary Care Provider Cristobal Bruce Seen Specialist in Last 12 Months Yes Specialist Seen Orthopedist,Other Comment PT, Pain Primary Language Venezuelan Preferred Language Venezuelan Correctional Corporal Required No Height 170.18 cm Hearing Ability Hard of Hearing Visual Assist Contacts,Glasses Dentition Type Teeth, Natural Present Barriers to Learning Visual Other Aids No Hx Anesthesia Reactions No Hx Family Anesthesia Reaction No Hx Malignant Hyperthermia No Hx Blood Transfusions Yes Hx Blood Transfusion Reaction No Anesthesia Review Requested No Farmer [employer] No alcohol intake current alcohol intake frequency a few times a month Smoking Status Never smoker Substance Use Type does not use Pain Present Pain Reported Comment Pain in legs Musculoskeletal Symptoms Abnormal Gait,Back Pain, Difficulty Walking,Joint Pain, Limited Range of Motion,Muscle Spasms,Muscle Weakness, Numbness,Radiating Pain into Limb,Tremors History of Falling (Recent or History of Yes ) Comment Slipped on ice Patient is completely paralyzed or No completely immobile Ambulatory Aid None/bed rest/nurse assist Gait/Transferring Normal/bedrest/immobile Mental Status Oriented to own ability Comment E stim Is patient on oxygen? No Does patient have BONILLA/SOB No Hx Sleep Apnea No CPAP/BIPAP use not prescribed Will Bring CPAP/BIPAP DOS No Suspected Sleep Apnea No Currently Taking a Beta Dangelo No Can You Climb a Flight of Stairs Without No SOB Hx Chest Pain No Hx SOB No Hx Syncope or Dizziness No Anti-Coagulant Therapy No Has a Marketing Planning Manager No Cardiac Testing Yes: Exercise Perfusion Study 11/13 EF 72-76% Hx Pacemaker/ICD No Cardiac Clearance Received Not Applicable Diet Type At Home Low Carb dysphagia No Gastrointestinal Symptoms Change in Stool Characteristics Comment Thinks it is related to nerve issues, looser, frequency/ urgency Urinary Catheter Present No Hx Urinary Self Catheterization No Diabetes No HgbA1C 5.6 Date 07/07/20 Comment Prediabetic, dietary counseling and changes Patient No Lactating No Hx Drug Resistant Organism No Presence of External or Internal Medical No Devices Have you had any close contact with No someone diagnosed with COVID-19? Are you experiencing any of these No symptoms symptoms? Evaluation/Screening for possible COVID- Yes 19 infection completed? Comment Has had 2 covid shots, test at Marital Status Lives With spouse Prior Living Arrangements House Number of Floors (Floors) Two Floors Number of Stairs To Enter/Railing? 15 stairs to get into house, can stay on main level Support System Family,Spouse Does the Patient Have Assistance After Yes Surgery Patient Discharge Plan Description Home Health Feels Safe in Current Environment Yes Been Physically Hurt or Threatened By a No Person in Current Environment If Yes, Provider Notified Yes Are you currently considering suicide? No Do you have a plan to hurt yourself or No Plan others? Do You Have Any Spiritual Beliefs That No May Affect Your HC Choices? Do You Have Any Cultural Practices That No May Affect Your HC Choices? Comment Scientologist Who Can We Speak to About Patient's Care Family & Friends Identifying Code for Release of Patient Declined Information Health Care Proxy/Next of Kin - Harjinder Mcnamara Health Care Proxy Emergency Contact Name - Harjinder Mcnamara Emergency Contact Advance Directives? No PAC Instructions Assistance for 24 hours post- op,Do not shave/clip surgical site,Medications to take/avoid ,Nasal antibiotic,No ETOH/ petroleum product on skin DOS, NPO,Post-op transportation,Pre -op antibiotic,Pre-surgical wash,Sensory aids,Sturdy shoes /comfortable clothes,Do not bring valuables and remove jewelry
--- NOTE | 2020-07-20 15:07 | PT.IPTN ---
Current Diagnoses Foot drop, left foot (07/20/20) Spinal stenosis, lumbar region without neurogenic claudication (07/20/20) Surgery Performed Operation Date: 07/19/20 12:45 Actual Procedures p L4-5 TLIF - Janice Hugo MD Physical Therapy Treatment Note M2 PT-IP Current Condition Start: 07/20/20 12:33 Freq: NEEDED Status: Active Protocol: Document 07/20/20 09:55 AB (Rec: 07/20/20 12:45 AB [id number]) Physical Therapy Current Condition Current Condition Evaluation Date 07/20/20 Treatment Diagnosis s/p L4-5 fusion/lami; difficulty in walking Onset Date 07/19/20 Precautions Lumbar Precautions Log Roll,No Twisting,Limit Bending,Lifting Restriction of 10 lbs,Gait Belt above Incisional Area M3 PT-IP Subjective Start: 07/20/20 12:33 Freq: NEEDED Status: Active Protocol: Document 07/20/20 15:07 AB (Rec: 07/20/20 15:53 AB [id number]) Subjective Physical Therapy Visit Type Type Treatment Note Visit Start Time 15:07 Visit Stop Time 15:37 Total Visit Minutes 30 Number of FANCY NEEDLEWORKER Visits 0 Physical Therapy Visit Comments Patient Comments agreeable to do PT Therapy Pain Assessment Pain When Pain Assessed At Rest Pain Present Pain Present Pain Reported Location back Intensity 5 Scale Used increases to 7/10 with mobility Description Spasm Pain Management Techniques Distraction,Modification of Treatment,Re-positioning, Timing of Activity with Medications M4 PT-IP Mobility and Gait Start: 07/20/20 12:33 Freq: NEEDED Status: Active Protocol: Document 07/20/20 15:07 AB (Rec: 07/20/20 15:53 AB [id number]) PT-Bed Mobility Assessment Rolling Type of Rolling Log Rolling Level of Assist Standby Assistance Supine to Sit Supine to Sit Standby Assistance Sit to Supine Sit to Supine Moderate Assistance,Maximum Assistance,1 Person Assistance PT-Transfer Assessment Sit to and From Stand Sit to and from Stand Contact Guard Assistance,1 Person Assistance Equipment Transfer Assistive Device Gait Belt,Front Wheeled Walker Orthotic/Prosthetic Devices or Brace: No Transfers Transfer Destination Toilet Transfer Technique ambulated using FWW Transfer Ability Level of Assist Contact Guard Assistance,1 Person Assistance,Use of Upper Extremities Comments Mobility Comments reviewed back precautions and pt needs cues to recall. completed log roll bed mobility supine to sit SBA and cues. completed sit to stand CGA and ambulated to the toile tusing FWW CGA. pt was able to completed sit to stand from the toilet using grab bar SBA and completed hygiene care. needs assist with brief management. completed ambulation using FWW towards the sink CGA and was able to complete handwashing CGA. ambulated more in room using FWW 50 ft CGA and requested to go back to bed. completed sit to supine mod to max A with BLE elevation to bed. positioned in bed. call light and table placed within reach . Gait Assessment Gait Gait Assistance Required: Contact Guard Assist Distance (Feet) 50 Able to Maintain Weight Bearing Status Yes During Gait Assistive Devices Assistive Device Gait Belt,Front Wheeled Walker Orthotic/Prosthetic Devices or Brace: No Gait Deviations General Gait Pattern Antalgic,Decreased Stride Length,Decreased Feet Clearance Factors Limiting Gait Function Factors Limiting Gait Function Decreased Activity Tolerance, Decreased Strength,Pain,Poor Balance M5 PT-IP Objective Assessments Start: 07/20/20 12:33 Freq: NEEDED Status: Active Protocol: Document 07/20/20 09:55 AB (Rec: 07/20/20 12:45 AB [id number]) Orientation Orientation/Cognition Level of Alertness Alert Orientation Name Safety Awareness Decreased Safety Awareness Gross Range of Motion Lower Extremity ROM Assessment Within Functional Limits Strength Lower Extremity Strength Assessment Bilaterally Impaired Comments Strength Comments RLE: 3+/5 LLE: 4-/5 Sensation Assessment Sensation Sensation Description Numbness Comments Sensation Comments numbness: L big toe and anterior lateral thigh area Muscle Tone Muscle Tone WNL Yes M6 PT-IP Treatment Start: 07/20/20 12:33 Freq: NEEDED Status: Active Protocol: Document 07/20/20 15:07 AB (Rec: 07/20/20 15:53 AB [id number]) Physical Therapy Treatment Education Education Provided Precautions,Safety M7 PT-IP Assessment and Plan Start: 07/20/20 12:33 Freq: NEEDED Status: Active Protocol: Document 07/20/20 15:07 AB (Rec: 07/20/20 15:53 AB [id number]) PT Summary Assessment and Plan Potential Rehabilitation Potential Good Summary Impairments Pain,ROM,Strength,Balance, Coordination,Sensation, Cognition,Bed Mobility, Transfers,Gait,Activity Tolerance Progress Towards Goals Slow Progress due to Pain Assessment Summary pt requiring CGA with transfers and ambulation using FWW. pt stated that her mom got a FWW, toilet safety frame and bed canes for her to use. Caregiver training will be conducted tomorrow as well as stair climbing training. pt plans to go home with spouse to assist her. Goals Bed Mobility Goal Independent Transfer Goal Independent,Front Wheeled Walker Gait Goal Independent,Front Wheel Walker Gait Distance 200 Other Goals up/down 15 steps 1 rail SBA Days to Meet Goals 5 Frequency of Treatment Frequency Of Treatment Twice a Day Treatment Plan Physical Therapy Treatment Plan Bed Mobility Training,Transfer Training,Gait Training, Therapeutic Exercise,Balance Retraining,Post Op Education, Discharge Planning,Hot or Cold Pack,Neuromuscular Re-ed, Coordination Retraining,Manual Therapy Other Recommendations and Next Treatment caregiver training; stair Focus climbing training Precautions Lumbar Precautions Log Roll,No Twisting,Limit Bending,Lifting Restriction of 10 lbs,Gait Belt above Incisional Area Recommendations To Nursing Amount of Assist Needed 1 Person Assist Discharge Recommendations PT Discharge Recommendations Home with Assistance, Outpatient PT Transportation Needs at Discharge Private Vehicle
[2020-07-20 15:25] VITALS: BP 120/74; PULSE 74; RESP 18; TEMP 36.8; O2SAT 99
[2020-07-20] MEDS: ACETAMINOPHEN 325 MG TABLET 650 MG PO ×2 (16:53→23:49)
[2020-07-20] MEDS: diazePAM 5 MG TABLET PO (18:59)
[2020-07-20 19:40] VITALS: BP 116/75; PULSE 78; RESP 18; TEMP 37.2; O2SAT 99
[2020-07-20] MEDS: SENNOSIDES 8.6 MG TABLET 17.2 MG PO (20:48)
[2020-07-21] VITALS (7 sets, daily range): BP systolic 112–142; BP diastolic 66–76; PULSE 70–91; RESP 15–18; TEMP 36.3–37.5; O2SAT 94–99
[2020-07-21] MEDS: diazePAM 5 MG TABLET PO ×5 (00:09→18:31)
[2020-07-21] MEDS: OXYCODONE IR 10 MG TABLET PO ×2 (03:37→07:54)
[2020-07-21] MEDS: hydrOXYzine pamoate 25 MG CAPSULE PO ×2 (03:37→07:55)
[2020-07-21] MEDS: ACETAMINOPHEN 325 MG TABLET 650 MG PO ×2 (06:21→12:17)
[2020-07-21] MEDS: POTASSIUM CHLORIDE 20 MEQ TAB PO (07:54)
[2020-07-21] MEDS: GABAPENTIN 300 MG CAPSULE PO ×3 (07:54→20:39)
[2020-07-21] MEDS: SODIUM CHLORIDE 0.9% FLUSH 10 ML IV ×2 (07:55→20:39)
[2020-07-21] MEDS: DOCUSATE 100 MG CAPSULE PO ×2 (07:55→20:39)
[2020-07-21] MEDS: MULTIVITAMIN 1 TABLET 1 TAB PO (07:55)
[2020-07-21] MEDS: CHOLECALCIFEROL (VITAMIN D3) 1,000 UNIT TABLET 2000 UNIT PO (07:55)
[2020-07-21] MEDS: MAGNESIUM OXIDE 400 MG TABLET PO (07:55)
[2020-07-21] MEDS: CHLORTHALIDONE 25 MG TABLET PO (08:03)
--- NOTE | 2020-07-21 08:08 | PM.PNPO.1 ---
Subjective Subjective Date Patient Seen: 07/21/20 Time Patient Seen: 08:08 Interval history: POD #2 s/p L4-[address] Hugo. Patient had significant muscle spasms yesterday. She states Flexeril has not helped her in the past. She did notice some relief with the valium. She has mobilized with PT in the [place]. Her pain is not well controlled with Oxycodone 10 mg. She is voiding without difficulty. Exam Vital Signs (past 8 hours): - 07/21/20 00:11 07/21/20 04:00 Temperature 98.6 F 98.1 F Pulse Rate 81 75 Respiratory Rate 18 16 Blood Pressure 117/66 118/76 Pulse Oximetry 94 99 Oxygen Delivery Method Room Air Oxygen Flow Rate 4 Narrative Exam Narrative: Patient sitting up in bed in NAD. Calves are soft, compressible, and nontender bilaterally. SILT throughout BLE except L4 dermatome. SCDs on and functioning. She is able to actively dorsiflex and plantarflex. Objective Labs Result Diagrams: 07/20/20 05:30 PFSH Medical History Foot drop, left Hyperlipidemia Hypertension Leiomyosarcoma (~2008) Prediabetes PVC (premature ventricular contraction) Rectocele Spinal stenosis of lumbar region with radiculopathy Trigger finger of thumb Surgical History History of cholecystectomy History of total hysterectomy History of tubal ligation Social History household members: spouse Smoking Status: Never smoker alcohol intake: current Assessment & Plan Post-op Postoperative Procedures: Procedures Operation Date: 07/19/20 12:45 Actual Procedures Side Surgeon p L4-5 TLIF Janice Hugo MD Patient will mobilize with PT today. No excessive bending, lifting or twisting. She has 15 stairs at home and she has not yet mobilized in the [place]. Will give additional option for pain control Oxycodone 15 mg and Vistaril 50 mg. Patient will not be able to discharge home until she is safe for the home environment. Likely tomorrow.
[2020-07-21] MEDS: MAGNESIUM HYDROXIDE 30 ML UDC PO (08:25)
[2020-07-21] MEDS: SENNOSIDES 8.6 MG TABLET 17.2 MG PO (08:26)
--- NOTE | 2020-07-21 10:26 | OT.IP.TRT ---
Current Diagnoses Foot drop, left foot (07/20/20) Spinal stenosis, lumbar region without neurogenic claudication (07/20/20) Surgery Performed Operation Date: 07/19/20 12:45 Actual Procedures p L4-5 TLIF - Janice Hugo MD Occupational Therapy Treatment Note M2 OT-IP Current Condition Start: 07/20/20 14:04 Freq: Status: Active Protocol: Document 07/20/20 14:04 [facility] (Rec: 07/20/20 14:27 [facility] [id number]) Occupational Therapy Current Condition Current Condition Evaluation Date 07/20/20 Treatment Diagnosis S/P L4-L5 TLIF, spinal stenosis, decreased mobility Diagnosis Onset Date 07/19/20 Post Operative Precautions Lumbar Precautions Log Roll,No Twisting,Limit Bending,Lifting Restriction of 10 lbs,Gait Belt above Incisional Area M3 OT- IP Subjective and Pain Start: 07/20/20 14:04 Freq: Status: Active Protocol: Document 07/21/20 11:36 [facility] (Rec: 07/21/20 11:43 [facility] [id number]) OT- Subjective Occupational Therapy Visit Type Type Treatment Note Visit Start Time 08:45 Visit Stop Time 10:26 Total Visit Minutes 54 Notes Pt seen from [id number] and 1027- 1117. Occupational Therapy Visit Comments Patient Comments Pt seen for split treatment as waiting for to come for caregiver training for shower and dressing needs. Patient/Caregiver Goals TO go home. OT Pain Assessment Pain When Pain Assessed During Mobility Pain Present Pain Present Pain Reported Location back Intensity 7 Scale Used Numeric (0 - 10) Description Spasm Pain Behaviors Facial Grimacing,Guarding, Moaning,Wincing Management Techniques Apply Cold,Distraction,Re- positioning,Timing of Activity with Medications M4 OT- IP ADL's Start: 07/20/20 14:04 Freq: Status: Active Protocol: Document 07/21/20 11:36 [facility] (Rec: 07/21/20 11:43 [facility] [id number]) OT JCA-Hqal-Tarmggt General Evaluation Self-Feeding Ability Independent OT ADL-Grooming General Evaluation Grooming Ability Standby Assistance OT ADL-Dressing General Eval Lower Body Dressing Ability Maximum Assistance Areas Needing Assistance Underpants/Brief,Shoes OT ADL-Toileting General Evaluation Toileting Ability Minimal Assistance Areas Needing Assistance Perform Perineal Hygiene Comments OT Toileting Comments Assist for completeness from behind to wipe. OT ADL-Bathing Bathing Type Bathing Type Shower General Evaluation Bathing Ability Maximal Assistance Areas Needing Assistance Wash/Dry Back,Wash/Dry Perineal Area,Wash/Dry Lower Extremities Devices Bathing Equipment Hand Held Shower Sprayer, Shower Chair with Arms,Grab Bars Comments OT Bathing Comments Pt in lots of pain and therefore needing more assist for showering needs. 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 M5 OT- IP IADL's Start: 07/20/20 14:04 Freq: Status: Active Protocol: Document 07/20/20 14:04 [facility] (Rec: 07/20/20 14:27 [facility] [id number]) OT-Instrumental Activities of Daily Living Home Safety Awareness Awareness of Need for Assistance at Home Good Awareness Ability to Problem Solve Emergency Able to Problem Solve Situations Medication Management Medication Management No Deficits Identified Money Management Money Management No Deficits Identified Meal Preparation Meal Preparation Caregiver Provides Assist [employer] Developer [employer] Software Developer Caregiver Provides Assist M6 OT- IP Functional Cognition Start: 07/20/20 14:04 Freq: Status: Active Protocol: Document 07/20/20 14:04 [facility] (Rec: 07/20/20 14:27 [facility] [id number]) Cognitive Factors Limiting Selfcare Function Cognitive Ability Level of Alertness Alert Patient Orientation Name,Age,Birthday,Month,Date, Year,Day of Week,Place, Situation Attention Span Ability Capable of Focused Attention, Capable of Sustained Attention Ability to Follow Commands Able to Follow Multi-Step Commands Memory Description No Deficits Noted Safety Awareness No Deficits Noted Cognitive Comments Cognitive Assessment Comments At this time, pt needing safety reminders for FWW use and to make sure to push from the bed before standing up to grab the FWW. OT- Vision and Hearing OT- Hearing Assessment OT- Hearing Assessment WFL OT- Vision Assessment Visual Acuity Glasses All The Time M7 OT- IP Mobility and Balance Start: 07/20/20 14:04 Freq: Status: Active Protocol: Document 07/21/20 11:36 [facility] (Rec: 07/21/20 11:43 [facility] [id number]) OT- Bed Mobility Assessment Sit to Supine Sit to Supine Assist Minimal Assistance,1 Person Assistance OT-Transfer Assessment Sit to and From Stand Sit to and from Stand Contact Guard Assistance, Minimal Assistance Transfers Transfer Ability Contact Guard Assistance Technique Transfer Destination Bed,Chair,Shower Stall,Toilet Transfer Technique Stand Step Pivot Devices Transfer Assistive Devices Gait Belt,Front Wheeled Walker Comments Mobility Comments Pt able to berlin/doff gait belt and able to safely assist pt for bed mobility and transfer/ mobility with FWW to get to the bathroom and shower. M8 OT- IP Objective Assessments Start: 07/20/20 14:04 Freq: Status: Active Protocol: Document 07/20/20 14:04 [facility] (Rec: 07/20/20 14:27 [facility] [id number]) OT-Muscle Tone Assessment Muscle Tone WNL Yes M9 OT- IP Assessment and Plan Start: 07/20/20 14:04 Freq: Status: Active Protocol: Document 07/21/20 11:36 [facility] (Rec: 07/21/20 11:43 [facility] [id number]) OT Summary Assessment and Plan Potential Rehabilitation Potential Good Analytic Complexity at Evaluation Low Summary OT Impairments Pain,Functional Mobility, Dressing,Toileting,Bathing, Toilet Transfers,Shower Transfers,Activity Tolerance Progress Towards Goals Progressing Toward Goals,Slow Progress due to Pain Assessment Summary Pt still having lots of back spasms however able to tolerate a shower and caregiver training with her and OT. Pt looking to go home when medically stable . LB dressing equipment issued to pt for home use. Goals Grooming Goal Independent Dressing Goal Independent Toileting Goal Independent Bathing Goal Standby Assistance Toilet Transfer Goal Independent Shower Transfer Goal Independent Patient/Caregiver Education Goal Demonstrate Post-Op Precautions,Caregiver Independent Assisting Patient Days to Meet Goals 4 Frequency of Treatment Frequency Of Treatment Once a Day Treatment Plan OT Treatment Plan ADL Training,Functional Cognition Training,Functional Mobility,Patient/Family Education,Discharge Planning Other Treatment Recommendations and Next caregiver training Treatment Focus Discharge Recommendations OT Discharge Recommendations Home with Assistance Home Equipment Needs shower chair, hand held shower spray Transportation Needs at Discharge Private Vehicle
--- NOTE | 2020-07-21 10:27 | PT.IPTN ---
Current Diagnoses Foot drop, left foot (07/20/20) Spinal stenosis, lumbar region without neurogenic claudication (07/20/20) Surgery Performed Operation Date: 07/19/20 12:45 Actual Procedures p L4-5 TLIF - Janice Hugo MD Physical Therapy Treatment Note M2 PT-IP Current Condition Start: 07/20/20 12:33 Freq: NEEDED Status: Active Protocol: Document 07/20/20 09:55 AB (Rec: 07/20/20 12:45 AB [email or web address]) Physical Therapy Current Condition Current Condition Evaluation Date 07/20/20 Treatment Diagnosis s/p L4-5 fusion/lami; difficulty in walking Onset Date 07/19/20 Precautions Lumbar Precautions Log Roll,No Twisting,Limit Bending,Lifting Restriction of 10 lbs,Gait Belt above Incisional Area M3 PT-IP Subjective Start: 07/20/20 12:33 Freq: NEEDED Status: Active Protocol: Document 07/21/20 10:27 AB (Rec: 07/21/20 12:15 AB [email or web address]) Subjective Physical Therapy Visit Type Type Treatment Note Visit Start Time 10:27 Visit Stop Time 10:49 Total Visit Minutes 22 Number of CLOSING AGENT Visits 0 Physical Therapy Visit Comments Patient Comments pt is agreeable to do PT Therapy Pain Assessment Pain When Pain Assessed At Rest Pain Present Pain Present Pain Reported Location back Intensity 6 Description Spasm Pain Behaviors Facial Grimacing,Guarding, Moaning,Wincing M4 PT-IP Mobility and Gait Start: 07/20/20 12:33 Freq: NEEDED Status: Active Protocol: Document 07/21/20 10:27 AB (Rec: 07/21/20 12:15 AB [email or web address]) PT-Bed Mobility Assessment Supine to Sit Supine to Sit Standby Assistance Sit to Supine Sit to Supine Minimal Assistance,1 Person Assistance PT-Transfer Assessment Sit to and From Stand Sit to and from Stand Standby Assistance,1 Person Assistance Equipment Transfer Assistive Device Gait Belt,Front Wheeled Walker Orthotic/Prosthetic Devices or Brace: No Comments Mobility Comments spouse in room with pt. pt completed supine to sit log roll SBA. completed sit to stand SBA. ambulated ~ 60 ft using FWW CGA. presents with decrease LE elevation and c/o increase back spasm needed frequent rest breaks and increase time to complete task . pt requested to go back to bed afterwards. completed sit to supine min A with pt's sposue assisting with BLE elevation to bed. positioned pt in bed. call light and table placed within reach. Gait Assessment Gait Gait Assistance Required: Contact Guard Assist,1 Person Assist Distance (Feet) 60 Able to Maintain Weight Bearing Status Yes During Gait Assistive Devices Assistive Device Gait Belt,Front Wheeled Walker Orthotic/Prosthetic Devices or Brace: No Gait Deviations General Gait Pattern Antalgic,Decreased Stride Length,Decreased Feet Clearance Factors Limiting Gait Function Factors Limiting Gait Function Decreased Activity Tolerance, Decreased Strength,Limited Range of Motion,Pain,Poor Balance,Poor Safety Awareness M5 PT-IP Objective Assessments Start: 07/20/20 12:33 Freq: NEEDED Status: Active Protocol: Document 07/20/20 09:55 AB (Rec: 07/20/20 12:45 AB [id number]) Orientation Orientation/Cognition Level of Alertness Alert Orientation Name Safety Awareness Decreased Safety Awareness Gross Range of Motion Lower Extremity ROM Assessment Within Functional Limits Strength Lower Extremity Strength Assessment Bilaterally Impaired Comments Strength Comments RLE: 3+/5 LLE: 4-/5 Sensation Assessment Sensation Sensation Description Numbness Comments Sensation Comments numbness: L big toe and anterior lateral thigh area Muscle Tone Muscle Tone WNL Yes M6 PT-IP Treatment Start: 07/20/20 12:33 Freq: NEEDED Status: Active Protocol: Document 07/21/20 10:27 AB (Rec: 07/21/20 12:15 AB [email or web address]) Physical Therapy Treatment Education Education Provided Safety M7 PT-IP Assessment and Plan Start: 07/20/20 12:33 Freq: NEEDED Status: Active Protocol: Document 07/21/20 10:27 AB (Rec: 07/21/20 12:15 AB [email or web address]) PT Summary Assessment and Plan Potential Rehabilitation Potential Good Summary Impairments Pain,ROM,Strength,Balance, Coordination,Sensation,Tone, Cognition,Bed Mobility, Transfers,Gait,Activity Tolerance Progress Towards Goals Slow Progress due to Pain Assessment Summary pt continues to c/o increase back pain/spasm limiting mobility and activity tolerance. will continue to assess progress. at this time , pt unable to tolerate much ambulate and unable to do stair climbing due to pain. will conitinue to assess progress. Goals Bed Mobility Goal Independent Transfer Goal Independent,Front Wheeled Walker Gait Goal Independent,Front Wheel Walker Gait Distance 200 Other Goals up/down 15 steps 1 rail SBA Days to Meet Goals 5 Frequency of Treatment Frequency Of Treatment Twice a Day Treatment Plan Physical Therapy Treatment Plan Bed Mobility Training,Transfer Training,Gait Training, Therapeutic Exercise,Balance Retraining,Post Op Education, Discharge Planning,Hot or Cold Pack,Neuromuscular Re-ed, Coordination Retraining,Manual Therapy Other Recommendations and Next Treatment caregiver training; stair Focus climbing training Precautions Lumbar Precautions Log Roll,No Twisting,Limit Bending,Lifting Restriction of 10 lbs,Gait Belt above Incisional Area Recommendations To Nursing Amount of Assist Needed 1 Person Assist Discharge Recommendations PT Discharge Recommendations Home with Assistance,Home Health Transportation Needs at Discharge Private Vehicle
[2020-07-21] MEDS: OXYCODONE IR 10 MG TABLET 15 MG PO ×4 (11:02→23:40)
[2020-07-21] MEDS: hydrOXYzine pamoate 25 MG CAPSULE 50 MG PO ×3 (12:16→20:39)
--- NOTE | 2020-07-21 15:20 | PT.IPTN ---
Current Diagnoses Foot drop, left foot (07/19/20) Spinal stenosis, lumbar region without neurogenic claudication (07/19/20) Surgery Performed Operation Date: 07/19/20 12:45 Actual Procedures p L4-5 TLIF - Janice Hugo MD Physical Therapy Treatment Note M2 PT-IP Current Condition Start: 07/20/20 12:33 Freq: NEEDED Status: Active Protocol: Document 07/20/20 09:55 AB (Rec: 07/20/20 12:45 AB [id number]) Physical Therapy Current Condition Current Condition Evaluation Date 07/20/20 Treatment Diagnosis s/p L4-5 fusion/lami; difficulty in walking Onset Date 07/19/20 Precautions Lumbar Precautions Log Roll,No Twisting,Limit Bending,Lifting Restriction of 10 lbs,Gait Belt above Incisional Area M3 PT-IP Subjective Start: 07/20/20 12:33 Freq: NEEDED Status: Active Protocol: Document 07/21/20 15:20 AB (Rec: 07/21/20 16:31 AB [id number]) Subjective Physical Therapy Visit Type Type Treatment Note Visit Start Time 15:20 Visit Stop Time 16:10 Total Visit Minutes 50 Number of REPORTING COORDINATOR Visits 0 Physical Therapy Visit Comments Patient Comments checked on pt x 3 but was using the toilet and last attempt, pt wanted to rest first. checked on pt again after ~ 45 min and agreed to do PT Therapy Pain Assessment Pain When Pain Assessed At Rest Pain Present Pain Present Pain Reported Location back Intensity 6 Scale Used Numeric (0 - 10) Pain Behaviors Facial Grimacing,Guarding, Holding Area,Moaning,Wincing Pain Management Techniques Apply Cold,Distraction, Modification of Treatment,Re- positioning,Timing of Activity with Medications M4 PT-IP Mobility and Gait Start: 07/20/20 12:33 Freq: NEEDED Status: Active Protocol: Document 07/21/20 15:20 AB (Rec: 07/21/20 16:31 AB [id number]) PT-Bed Mobility Assessment Rolling Level of Assist Standby Assistance PT-Transfer Assessment Sit to and From Stand Sit to and from Stand Contact Guard Assistance,1 Person Assistance,Use of Upper Extremities Equipment Transfer Assistive Device Gait Belt,Front Wheeled Walker Orthotic/Prosthetic Devices or Brace: No Transfers Transfer Destination Chair,Toilet Transfer Technique ambulated using FWW Transfer Ability Level of Assist Contact Guard Assistance,1 Person Assistance,Use of Upper Extremities Comments Mobility Comments completed log roll supine to sit SBA using bed rail. pt completed sit to stand CGA and ambulated ~ 75 ft using FWW. assisted towards the stairs. spouse present. PT educated pt on stair climbing. pt completed up/down steps using L rail ascending min A and cues. educated spouse on how to assist pt and pt completed another set of up/down steps with spouse assisting and completed safely. assisted pt back to her room. ambulated from the w/c to chair using FWW SBA to CGA. requested to use the toilet and ambulated from chair to the toilet using FWW. SBA for hygiene care and brief management. ambulated from the toilet to the sink using FWW SBA and was able to maintain standing SBA while doing handwashing. pt agreed to sit up on chair and ambulated to the chair using FWW SBA. positioned on chair. call light and table placed within reach. informed spouse regarding use of safety belt and agreed. stated that OT already showed him how to berlin/doff safety belt and feels confident with use. requires increase time to complete all tasks due to pt requiring increase rest breaks in between activities due to c/o increase back pain/spasms. pt with R volar arm skin tear and informed nurse. Gait Assessment Gait Gait Assistance Required: Standby Assistance,Contact Guard Assist Distance (Feet) 75 Able to Maintain Weight Bearing Status Yes During Gait Assistive Devices Assistive Device Gait Belt,Front Wheeled Walker Orthotic/Prosthetic Devices or Brace: No Gait Deviations General Gait Pattern Antalgic,Decreased Stride Length,Decreased Feet Clearance Factors Limiting Gait Function Factors Limiting Gait Function Decreased Activity Tolerance, Decreased Strength,Limited Range of Motion,Pain,Poor Balance,Poor Safety Awareness Comments Gait Comments pls refer to mobility section for details Stair Climbing Assessment Evaluation Level of Assist On Stairs Minimal Assistance Devices Stair Climbing Assistive Devices Left Railing Technique/Endurance Stair Climbing Direction Ascend and Descend Stair Climbing Technique Step to Step Number of Steps Climbed 3 Stair Climbing Set # Repetitions (reps) 2 Comments Stair Climbing Comments pls refer to mobiltiy section for details M5 PT-IP Objective Assessments Start: 07/20/20 12:33 Freq: NEEDED Status: Active Protocol: Document 07/20/20 09:55 AB (Rec: 07/20/20 12:45 AB [id number]) Orientation Orientation/Cognition Level of Alertness Alert Orientation Name Safety Awareness Decreased Safety Awareness Gross Range of Motion Lower Extremity ROM Assessment Within Functional Limits Strength Lower Extremity Strength Assessment Bilaterally Impaired Comments Strength Comments RLE: 3+/5 LLE: 4-/5 Sensation Assessment Sensation Sensation Description Numbness Comments Sensation Comments numbness: L big toe and anterior lateral thigh area Muscle Tone Muscle Tone WNL Yes M6 PT-IP Treatment Start: 07/20/20 12:33 Freq: NEEDED Status: Active Protocol: Document 07/21/20 15:20 AB (Rec: 07/21/20 16:31 AB [id number]) Physical Therapy Treatment Education Education Provided Precautions,Safety M7 PT-IP Assessment and Plan Start: 07/20/20 12:33 Freq: NEEDED Status: Active Protocol: Document 07/21/20 15:20 AB (Rec: 07/21/20 16:31 AB [id number]) PT Summary Assessment and Plan Potential Rehabilitation Potential Good Summary Impairments Pain,ROM,Strength,Balance, Coordination,Sensation,Tone, Cognition,Bed Mobility, Transfers,Gait,Activity Tolerance Progress Towards Goals Slow Progress due to Pain Assessment Summary pt requiring SBA to CGA with ambulation using FWW. spouse able to assist pt. also completed stair training and spouse was able to assist pt but pt was only able to complete 6 steps with c/o increase back pain. pt plans to go home and spouse to assist pt. pt will benefit from HHPT to improve overall strength and mobility independence. Goals Bed Mobility Goal Independent Transfer Goal Independent,Front Wheeled Walker Gait Goal Independent,Front Wheel Walker Gait Distance 200 Other Goals up/down 15 steps 1 rail SBA Days to Meet Goals 5 Frequency of Treatment Frequency Of Treatment Twice a Day Treatment Plan Physical Therapy Treatment Plan Bed Mobility Training,Transfer Training,Gait Training, Therapeutic Exercise,Balance Retraining,Post Op Education, Discharge Planning,Hot or Cold Pack,Neuromuscular Re-ed, Coordination Retraining,Manual Therapy Other Recommendations and Next Treatment caregiver training; stair Focus climbing training Precautions Lumbar Precautions Log Roll,No Twisting,Limit Bending,Lifting Restriction of 10 lbs,Gait Belt above Incisional Area Recommendations To Nursing Amount of Assist Needed 1 Person Assist Discharge Recommendations PT Discharge Recommendations Home with Assistance,Home Health Transportation Needs at Discharge Private Vehicle
[2020-07-22] MEDS: OXYCODONE IR 5 MG TABLET 15 MG PO ×3 (03:24→13:05)
[2020-07-22 03:31] VITALS: BP 111/82; PULSE 92; RESP 16; TEMP 36.2; O2SAT 96
[2020-07-22 08:00] VITALS: BP 111/70; PULSE 79; RESP 15; TEMP 36.4; O2SAT 97
[2020-07-22] MEDS: MAGNESIUM OXIDE 400 MG TABLET PO (08:06)
[2020-07-22] MEDS: CHLORTHALIDONE 25 MG TABLET PO (08:06)
[2020-07-22] MEDS: GABAPENTIN 300 MG CAPSULE PO ×2 (08:06→13:05)
[2020-07-22] MEDS: diazePAM 5 MG TABLET PO (08:06)
[2020-07-22] MEDS: DOCUSATE 100 MG CAPSULE PO (08:06)
[2020-07-22] MEDS: MULTIVITAMIN 1 TABLET 1 TAB PO (08:06)
[2020-07-22] MEDS: CHOLECALCIFEROL (VITAMIN D3) 1,000 UNIT TABLET 2000 UNIT PO (08:06)
[2020-07-22] MEDS: SODIUM CHLORIDE 0.9% FLUSH 10 ML IV (08:06)
[2020-07-22] MEDS: POTASSIUM CHLORIDE 20 MEQ TAB PO (08:06)
--- NOTE | 2020-07-22 09:40 | OT.IP.TRT ---
Current Diagnoses Foot drop, left foot (07/19/20) Spinal stenosis, lumbar region without neurogenic claudication (07/19/20) Surgery Performed Operation Date: 07/19/20 12:45 Actual Procedures p L4-5 TLIF - Janice Hugo MD Occupational Therapy Treatment Note M2 OT-IP Current Condition Start: 07/20/20 14:04 Freq: Status: Active Protocol: Document 07/20/20 14:04 [facility] (Rec: 07/20/20 14:27 [facility] [id number]) Occupational Therapy Current Condition Current Condition Evaluation Date 07/20/20 Treatment Diagnosis S/P L4-L5 TLIF, spinal stenosis, decreased mobility Diagnosis Onset Date 07/19/20 Post Operative Precautions Lumbar Precautions Log Roll,No Twisting,Limit Bending,Lifting Restriction of 10 lbs,Gait Belt above Incisional Area M3 OT- IP Subjective and Pain Start: 07/20/20 14:04 Freq: Status: Active Protocol: Document 07/22/20 12:51 [facility] (Rec: 07/22/20 13:00 [facility] [id number]) OT- Subjective Occupational Therapy Visit Type Type Treatment Note Visit Start Time 08:50 Visit Stop Time 09:40 Total Visit Minutes 50 Occupational Therapy Visit Comments Patient Comments Pt very sleepy and groggy from pain medication per pt. Patient/Caregiver Goals To go home. M4 OT- IP ADL's Start: 07/20/20 14:04 Freq: Status: Active Protocol: Document 07/22/20 12:51 [facility] (Rec: 07/22/20 13:00 [facility] [id number]) OT GJE-Ebux-Vqvacrb General Evaluation Self-Feeding Ability Standby Assistance Comments OT Self-Feeding Comments Pt needing continuous vc to keep her eyes open so able to eat. Pt very groggy this morning. OT ADL-Grooming General Evaluation Grooming Ability Standby Assistance Comments OT Grooming Comments SBA while at this sink with FWW. OT ADL-Oral Care General Eval Oral Care Ability Standby Assistance Comments Oral Care Comments Educated pt best to just spit into a cup to best follow her back precautions. OT ADL-Toileting General Evaluation Toileting Ability Standby Assistance Comments OT Toileting Comments Pt able to wipe after urinating. M5 OT- IP IADL's Start: 07/20/20 14:04 Freq: Status: Active Protocol: Document 07/20/20 14:04 [facility] (Rec: 07/20/20 14:27 [facility] [id number]) OT-Instrumental Activities of Daily Living Home Safety Awareness Awareness of Need for Assistance at Home Good Awareness Ability to Problem Solve Emergency Able to Problem Solve Situations Medication Management Medication Management No Deficits Identified Money Management Money Management No Deficits Identified Meal Preparation Meal Preparation Caregiver Provides Assist Insurance Claims Specialist Insurance Claims Specialist Caregiver Provides Assist M6 OT- IP Functional Cognition Start: 07/20/20 14:04 Freq: Status: Active Protocol: Document 07/22/20 12:51 [facility] (Rec: 07/22/20 13:00 [facility] [id number]) Cognitive Factors Limiting Selfcare Function Cognitive Comments Cognitive Assessment Comments Pt needing cues for FWW safety . M7 OT- IP Mobility and Balance Start: 07/20/20 14:04 Freq: Status: Active Protocol: Document 07/22/20 12:51 [facility] (Rec: 07/22/20 13:00 [facility] [id number]) OT-Transfer Assessment Sit to and From Stand Sit to and from Stand Contact Guard Assistance Transfers Transfer Ability Contact Guard Assistance Technique Transfer Destination Bed,Chair,Toilet Transfer Technique Stand Step Pivot Devices Transfer Assistive Devices Gait Belt,Front Wheeled Walker Comments Mobility Comments CGA with FWW OT- Gait Assessment Comments Gait Ability Comments Slight loss of balance and lean to the right , pt aware and able to rebalance herself. OT- Balance Assessment Sitting Balance and Reactions Static Sitting Balance Ability Good Dynamic Sitting Balance Ability Fair M8 OT- IP Objective Assessments Start: 07/20/20 14:04 Freq: Status: Active Protocol: Document 07/20/20 14:04 [facility] (Rec: 07/20/20 14:27 [facility] [id number]) OT-Muscle Tone Assessment Muscle Tone WNL Yes M9 OT- IP Assessment and Plan Start: 07/20/20 14:04 Freq: Status: Active Protocol: Document 07/22/20 12:51 [facility] (Rec: 07/22/20 13:00 [facility] [id number]) OT Summary Assessment and Plan Potential Rehabilitation Potential Good Analytic Complexity at Evaluation Low Summary OT Impairments Pain,Functional Mobility, Dressing,Toileting,Bathing, Toilet Transfers,Shower Transfers,Activity Tolerance Progress Towards Goals Progressing Toward Goals,Slow Progress due to Cognition Assessment Summary Today , pt very groggy due to too much medications per pt. Pt needing vc to stand awake and a bit unsteady on her feet . Pt to go home when medically stable. Notified nursing as pt is coughing a lot more today. Goals Grooming Goal Independent Dressing Goal Independent Toileting Goal Independent Bathing Goal Standby Assistance Toilet Transfer Goal Independent Shower Transfer Goal Independent Patient/Caregiver Education Goal Demonstrate Post-Op Precautions,Caregiver Independent Assisting Patient Days to Meet Goals 3 Frequency of Treatment Frequency Of Treatment Once a Day Discharge Recommendations OT Discharge Recommendations Home with Assistance Home Equipment Needs shower chair, hand held shower spray Transportation Needs at Discharge Private Vehicle
--- NOTE | 2020-07-22 10:12 | CM.DPNOTE ---
DC Note Patient expected to DC home today; met w/patient briefly this morning to review DCP and she was looking forward to returning home w/spouse, states I just need to get past those 15 stairs (to enter) Plan: DC home w/spouse expected today, no needs indicated from this TELEPHONE AD TAKER JW
--- NOTE | 2020-07-22 11:44 | PT.IPTN ---
Current Diagnoses Foot drop, left foot (07/19/20) Spinal stenosis, lumbar region without neurogenic claudication (07/19/20) Surgery Performed Operation Date: 07/19/20 12:45 Actual Procedures p L4-5 TLIF - Janice Hugo MD Physical Therapy Treatment Note M2 PT-IP Current Condition Start: 07/20/20 12:33 Freq: NEEDED Status: Active Protocol: Document 07/20/20 09:55 [facility] (Rec: 07/20/20 12:45 [email or web address]) Physical Therapy Current Condition Current Condition Evaluation Date 07/20/20 Treatment Diagnosis s/p L4-5 fusion/lami; difficulty in walking Onset Date 07/19/20 Precautions Lumbar Precautions Log Roll,No Twisting,Limit Bending,Lifting Restriction of 10 lbs,Gait Belt above Incisional Area M3 PT-IP Subjective Start: 07/20/20 12:33 Freq: NEEDED Status: Active Protocol: Document 07/22/20 11:13 [facility] (Rec: 07/22/20 14:08 [facility] [id number]) Subjective Physical Therapy Visit Type Type Treatment Note Visit Start Time 11:13 Visit Stop Time 11:44 Total Visit Minutes 31 Notes present during tx. Number of BORING MACHINE SET UP OPERATOR JIG Visits 1 Physical Therapy Visit Comments Patient Comments pt is agreeable to do PT Therapy Pain Assessment Pain When Pain Assessed At Rest Pain Present Pain Present Pain Reported Location back Intensity 5 Scale Used Numeric (0 - 10) Description Pulling Pain Behaviors Facial Grimacing,Wincing Pain Management Techniques Modification of Treatment,Re- positioning,Timing of Activity with Medications M4 PT-IP Mobility and Gait Start: 07/20/20 12:33 Freq: NEEDED Status: Active Protocol: Document 07/22/20 11:13 [facility] (Rec: 07/22/20 14:08 [facility] [id number]) PT-Bed Mobility Assessment Rolling Type of Rolling Log Rolling,Roll to Left Level of Assist Standby Assistance Supine to Sit Supine to Sit Standby Assistance Sit to Supine Sit to Supine Standby Assistance PT-Transfer Assessment Sit to and From Stand Sit to and from Stand Standby Assistance,1 Person Assistance Equipment Transfer Assistive Device Gait Belt,Front Wheeled Walker Orthotic/Prosthetic Devices or Brace: No Transfers Transfer Destination Bed,Wheelchair Transfer Technique ambulated using FWW Transfer Ability Level of Assist Standby Assistance,1 Person Assistance,Use of Upper Extremities Comments Mobility Comments Pt performed LR to left and sat at EOB SBA. Pt then ambulated to WC sitting SBA. Pt stood from WC SBA and ambulated to stairs holding left rail. Pt climbed three steps using left rail requiring CGA. Pt then ambulated ~50ft w/FWW/SBA, pt sat in WC SBA returning to room. Pt then stood SBA from WC and ambulated to bedside sitting SBA. Pt able to perform reverse LR to supine SBA. Pt left in bed with alarm on and all needs within reach , present. Gait Assessment Gait Gait Assistance Required: Standby Assistance Distance (Feet) 50 Able to Maintain Weight Bearing Status Yes During Gait Assistive Devices Assistive Device Gait Belt,Front Wheeled Walker Orthotic/Prosthetic Devices or Brace: No Gait Deviations General Gait Pattern Antalgic,Decreased Stride Length,Decreased Feet Clearance Factors Limiting Gait Function Factors Limiting Gait Function Decreased Activity Tolerance, Decreased Strength,Limited Range of Motion,Pain,Poor Balance,Poor Safety Awareness Comments Gait Comments pls refer to mobility section for details Stair Climbing Assessment Evaluation Level of Assist On Stairs Contact Guard Assistance,1 Person Assistance Devices Stair Climbing Assistive Devices Left Railing Technique/Endurance Stair Climbing Direction Ascend and Descend Stair Climbing Technique Step to Step Number of Steps Climbed 3 Stair Climbing Set # Repetitions (reps) 2 Comments Stair Climbing Comments pls refer to mobiltiy section for details M5 PT-IP Objective Assessments Start: 07/20/20 12:33 Freq: NEEDED Status: Active Protocol: Document 07/20/20 09:55 [facility] (Rec: 07/20/20 12:45 [id number]) Orientation Orientation/Cognition Level of Alertness Alert Orientation Name Safety Awareness Decreased Safety Awareness Gross Range of Motion Lower Extremity ROM Assessment Within Functional Limits Strength Lower Extremity Strength Assessment Bilaterally Impaired Comments Strength Comments RLE: 3+/5 LLE: 4-/5 Sensation Assessment Sensation Sensation Description Numbness Comments Sensation Comments numbness: L big toe and anterior lateral thigh area Muscle Tone Muscle Tone WNL Yes M6 PT-IP Treatment Start: 07/20/20 12:33 Freq: NEEDED Status: Active Protocol: Document 07/21/20 15:20 [facility] (Rec: 07/21/20 16:31 [facility] [id number]) Physical Therapy Treatment Education Education Provided Precautions,Safety M7 PT-IP Assessment and Plan Start: 07/20/20 12:33 Freq: NEEDED Status: Active Protocol: Document 07/22/20 11:13 [facility] (Rec: 07/22/20 14:08 [facility] [id number]) PT Summary Assessment and Plan Potential Rehabilitation Potential Good Summary Impairments Pain,ROM,Strength,Balance, Coordination,Sensation,Tone, Cognition,Bed Mobility, Transfers,Gait,Activity Tolerance Progress Towards Goals Slow Progress due to Activity Tolerance Assessment Summary Pt able to assist pt. Pt requires SBA for bed mobility, transfers and gait. Pt able to climb two sets of stairs CGA. Pt with mild dizziness with ambulation after gait requiring her to sit in WC to return to room. Informed RN of pt progress. Goals Bed Mobility Goal Independent Transfer Goal Independent,Front Wheeled Walker Gait Goal Independent,Front Wheel Walker Gait Distance 200 Other Goals up/down 15 steps 1 rail SBA Days to Meet Goals 5 Frequency of Treatment Frequency Of Treatment Twice a Day Treatment Plan Physical Therapy Treatment Plan Bed Mobility Training,Transfer Training,Gait Training, Therapeutic Exercise,Balance Retraining,Post Op Education, Discharge Planning,Hot or Cold Pack,Neuromuscular Re-ed, Coordination Retraining,Manual Therapy Other Recommendations and Next Treatment caregiver training; stair Focus climbing training Precautions Lumbar Precautions Log Roll,No Twisting,Limit Bending,Lifting Restriction of 10 lbs,Gait Belt above Incisional Area Recommendations To Nursing Amount of Assist Needed 1 Person Assist Discharge Recommendations PT Discharge Recommendations Home with Assistance,Home Health Transportation Needs at Discharge Private Vehicle
--- NOTE | 2020-07-22 12:13 | P.DS_ITS ---
History of Present Illness History of Present Illness Date Patient Seen: 07/22/20 Time Patient Seen: 12:13 Chief complaint: OPB Narrative: Please refer to previously documented HPI and chart. Discharge Providers Provider Date of admission: 07/19/20 11:19 Discharge Date: 07/22/20 Primary care physician: Cristobal Bruce DO Consults: 07/19/20 17:05 Consult to Occupational Therapy Evaluate & Treat Comment: Physician Instructions: Evaluate and treat Consult to Physical Therapy Evaluate & Treat Comment: Physician Instructions: Evaluate and Treat Discharge provider: Julio C Sanchez PA-C Summary Hospital Course Discharge Diagnosis: 1. L4-5 spinal stenosis 2. L4-5 spondylosis with radiculopathy 3. S/P L4-5 TLIF Hospital Course: 64-year-old female with the above-listed diagnosis was appropriately consented for the above listed procedure and presented to OR undergoing said procedure without difficulty or complication then admitted to hospital for rehabilitation with normal convalescent course except for related surgical pain control and associated spasm issues. On postoperative day 3. The patient was evaluated by PT/OT with appropriate recommendations for disposition home. Her oral narcotic analgesics and muscle relaxants were titrated to effective and safe dosage. The patient did not complain of left foot drop and noticed overall improvement with her left L4 dermatome. The patient was able to void without difficulty and move her bowels. Her wound was clean, dry and intact. She denied any new and/or related pain, weakness, numbness and/or tingling in her bilateral lower extremity as well as no bowel or bladder dysfunction. On surgical evaluation the patient was doing well and stable for discharge. The patient verbalized understanding postoperative lumbar spinal fusion care protocols, instructions and precautions. She agreed with the plan to follow-up in 2 weeks for re-evaluation or sooner as needed. Status at Discharge Cognitive/behavioral status at discharge: oriented Overall status at discharge: patient is progressing back to baseline Time Spent with Patient Time spent: Less than 30 minutes Exam Vital Signs (past 8 hours): - 07/22/20 08:00 Temperature 97.6 F Pulse Rate 79 Respiratory Rate 15 Blood Pressure 111/70 Pulse Oximetry 97 Oxygen Delivery Method Room Air Oxygen Flow Rate 0 Narrative Exam Narrative: 64-year-old female seen mildly sedated and somnolent in bed but oriented x3 and in no apparent distress. Her wound was clean dry and intact. Chelly-incisional region was less tender to palpation without fasciculations. Bilateral lower extremity quads, tibialis anterior and EHL grossly intact with soft, compressible and nontender bilateral calves and 2+ bilateral dorsal patellas pulses. Objective Labs Result Diagrams: 07/20/20 05:30 PFSH Medical History Foot drop, left Hyperlipidemia Hypertension Leiomyosarcoma (~2008) Prediabetes PVC (premature ventricular contraction) Rectocele Spinal stenosis of lumbar region with radiculopathy Trigger finger of thumb Surgical History History of cholecystectomy History of total hysterectomy History of tubal ligation Social History household members: spouse Smoking Status: Never smoker alcohol intake: current Discharge Assessment & Plan Assessment and Plan Assessment: 1. L4-5 spinal stenosis 2. L4-5 spondylosis with radiculopathy 3. POD # 3 S/P L4-5 TLIF, doing well and likely stable for discharge this afternoon. Plan of Treatment: 1. Stable for discharge home this afternoon after PT/OT recommendation for disposition. 2. Postoperative lumbar spinal care protocols, instructions and restrictions/precautions apply. 3. Follow-up in 2 weeks for re-evaluation and staple removal in clinic or sooner as needed. Discharge Plan Discharge Plan Patient Disposition: Home Discharge orders & Medications Prescriptions: New hydroxyzine pamoate 25 mg Capsule 25 - 50 mg PO Q6H PRN (Reason: Nausea And Vomiting) Qty: 60 RF: 0 oxycodone 10 mg Tablet 5 - 10 mg PO Q4-6H PRN (Reason: Pain, Severe (7-10)) Qty: 60 RF: 0 sennosides [senna] 8.6 mg Tablet 17.2 mg PO BID PRN (Reason: constipation) Qty: 60 RF: 0 acetaminophen 325 mg Tablet 650 mg PO Q6HR PRN (Reason: Pain, Mild (1-3)) Qty: 60 RF: 0 Continued multivitamin Tablet 1 tab PO DAILY RF: 0 chlorthalidone 25 mg tablet 25 mg PO DAILY RF: 0 valacyclovir 500 mg tablet 1,000 mg PO PRN PRN (Reason: Outbreak) RF: 0 gabapentin 300 mg Tablet 300 - 600 mg PO TID RF: 0 cholecalciferol (vitamin D3) [Vitamin D3] 50 mcg (2,000 unit) Capsule 50 mcg PO DAILY RF: 0 potassium chloride 20 mEq Tablet Extended Release 20 meq PO DAILY RF: 0 magnesium oxide 400 mg magnesium Tablet 400 mg PO DAILY RF: 0 Follow up/Referrals: Janice Hugo MD [Physician] - Cristobal Bruce DO [Primary Care Provider] - Diet/Activity/Treatments Diet: Diet as Tolerated Activity: No excessive bending, lifting, or twisting Skin/Wound/Dressing Care Report to your healthcare provider any signs of infection, such as:: chills, fever and increased pain Dressing: leave in place until appointment. Call if becomes saturated. Visit Report/Discharge Packet Instructions: DI for Constipation, How to Prevent Falls, DI for Transforaminal Lumbar Interbody Fusion Discharge Data Primary Care Provider: Cristobal Bruce Quality MIPS - Admit Advanced Care Plan / Current Medications Measures: #47 ? Advanced Care Plan Clinician documentation instruction: document at admission. [] I confirmed that the patient's Advance Care Plan is present, code status is documented, or surrogate decision maker is listed in the patient?s medical record. [SATISFIES MIPS PERFORMANCE] If Yes, Stop Here [] The patient?s Advance Care plan is not present because: (select) [MIPS PERFORMANCE EXCEPTION/EXCLUSION] [] I confirmed today that the patient does not wish or was not able to name a surrogate decision maker or provide an Advance Care Plan. [] Hospice care is currently being provided or has been provided this calendar year [] I did NOT confirm today the presence of an Advance Care Plan or surrogate decision maker documented within the patient's medical record. [DOES NOT SATISFY MIPS PERFORMANCE] #130 - Documentation of Current Medications in the Medical Record Clinician documentation instruction: use macro the first time you see a patient. [] I have utilized all available immediate resources to obtain, update, or review the patient?s current medications. [SATISFIES MIPS PERFORMANCE] If Yes, Stop Here [] The patient is not eligible for medication reconciliation; the patient is in an emergent medical situation where delaying treatment would jeopardize the patient?s health. [MIPS PERFORMANCE EXCEPTION/EXCLUSION] [] I did NOT confirm, update or review the patient's current list of medications today. [DOES NOT SATISFY MIPS PERFORMANCE] MIPS - CL Central Venous Catheter Placement Measure: #76 ? Prevention of Central Venous Catheter (CVC) ? Related Bloodstream Infection Clinician documentation instruction: use macro every time you place a central line. [] All elements of Maximal Sterile Barrier Technique, including hand hygiene, skin prep, and sterile ultrasound technique (if used) were followed. [SATISFIES MIPS PERFORMANCE] If Yes, Stop Here [] If ?No?, the medical reason all elements were NOT used for medical reason [] (ex. emergent condition). [] Maximal Sterile Barrier Technique was not followed, no reason provided [DOES NOT SATISFY MIPS PERFORMANCE] MIPS - DC Heart Failure Measures: #5 - Heart Failure (HF): Angiotensin-Converting Enzyme (SHANELL) Inhibitor or Angiotensin Receptor Dangelo (ARB) Therapy for Left Ventricular Systolic Dysfunction (LVSD) and #8 - Heart Failure (HF): Beta-Dangelo Therapy for Left Ventricular Systolic Dysfunction (LVSD) Clinician documentation instruction: use macro at every CHF discharge. [] The patient has current or prior documentation of left ventricular ejection fraction (LVEF) less than 40%, or moderate or severely depressed left ventr icular systolic function. Answer both: [SATISFIES MIPS PERFORMANCE] [] The patient was prescribed or already taking an Angiotensin-Converting Enzyme (SHANELL) Inhibitor, or Angiotensin Receptor Dangelo (ARB). [] The patient was prescribed or already taking a beta-dangelo. If Yes to Both, Stop Here [] Patient not prescribed/taking: [MIPS PERFORMANCE EXCEPTION/EXCLUSION] [] SHANELL or ARB for medical/patient/system reason(s) including [] (ex. allergy, intolerance, contraindication) [] Beta-dangelo for medical/patient/system reason(s) including [] (ex. allergy, intolerance, contraindication) [] Patient not prescribed/taking: [DOES NOT SATISFY MIPS PERFORMANCE] [] SHANELL or ARB, no reason given [] Beta-dangelo, no reason given
[2020-07-22] MEDS: hydrOXYzine pamoate 25 MG CAPSULE PO (13:05)
[2020-07-22] MEDS: ACETAMINOPHEN 325 MG TABLET 650 MG PO (13:05)
--- NOTE | 2020-07-22 14:47 | PC.NURSE ---
Discharge: Pt c/o pain and spasms this am, given oxy and valium and became very sleepy after same. Will arouse but then falls back to sleep. Sats 97, rr 16. No more valium per PAM Sanchez. Pt is aware of same. Unable to work with PT this am due to sleepiness. Allowed to sleep and awoke at lunch time. Did work with PT then and passed as safe going home. PAM Sanchez gave d/c instructions this am. PT gave their instructions to pt. Pt is following her lami precautions. Understands she has a 10 pound weight limit. Pt feels she is ready to go. Has a supportive spouse who is here. Reviewed d/c packet. Rx given. Tolerates diet w/out problems. Vds w/out diff. Pt reports she understands her pain regime and she will not be getting any valium to take home. Questions answered. Pt d/c home via auto w/spouse.
== END 2020-07-22 14:05 | disposition home or self-care (01) | DRG 455 ==
LOC: OR 11:19 → AC 11:19 → OR 07-21 15:39 → AC 07-21 15:39
PROVIDERS: Admitting Provider Orthopaedic Surgery Orthopaedic Surgery of the Spine; PCP Family Medicine; Referring Provider Orthopaedic Surgery Orthopaedic Surgery of the Spine; Visit Provider Orthopaedic Surgery Orthopaedic Surgery of the Spine
PROC: 0SG00AJ Fusion of Lumbar Vertebral Joint with Interbody Fusion Device, Posterior Approach, Anterior Column, Open Approach (ICD-10-PCS; principal; 2020-07-19 12:45)
DX: M48.061 Spinal stenosis, lumbar region without neurogenic claudication (principal); M21.372 Foot drop, left foot; M47.26 Other spondylosis with radiculopathy, lumbar region; M62.830 Muscle spasm of back; I10 Essential (primary) hypertension; Z20.822 Contact with and (suspected) exposure to COVID-19
CPT/HCPCS: 36415; 72100; 76000; 82962; 85014; 85018; 87635; 97116; 97162; 97165; 97530; 97535; C1776; C9803; C9290; J0690; J1100; J1170; J2060; J2250; J2270; J2405; J2704; J3010; J3410

== ENCOUNTER → 2020-11-23 15:43 | Outpatient (CLI) | payer MEDICARE, OTHER, SELFPAY ==
[2020-07-19 11:26] VITALS: BMI 28.6
--- NOTE | 2020-11-23 15:47 | DI.MRI.S_ITS ---
PROCEDURE: MR LUMBAR SPINE WO CON INDICATIONS: Spinal stenosis, lumbar region without neurogenic TECHNIQUE: Noncontrast sagittal T1 spin echo and T2 fast echo, sagittal STIR, axial T1 and T2 fast spin echo through the lumbar spine. In cases with scoliosis, additional coronal T2 fast spin echo may be performed. COMPARISON: [facility], MR, MR LUMBAR SPINE WO CON, 03/10/2020, 8:13. FINDINGS: Image quality: Excellent. Alignment and Curvature: In the interval since the prior exam, posterior fusion is present at L4-5. There is good anatomic alignment. Minimal reactive endplate changes are present at this level. Bone Marrow: Marrow is of normal overall signal. No acute vertebral body compression fractures. Spinal Cord: Conus medullaris terminates at the L1-2 level. Visualized cord demonstrates normal signal and size. Paraspinous Soft Tissues: No paravertebral masses. Incidental left parapelvic cysts are noted. Discs: Overall bsbs-tf-addguaim disc desiccation is present throughout the lumbar spine. L1-L2: No disc bulge, spinal stenosis or foraminal narrowing. No interval change. Minimal epidural lipomatosis as well as facet and ligamentum flavum hypertrophy. L2-L3: Minimal disc bulge with slight canal narrowing, slightly progressive. Minimal bilateral foraminal narrowing, slightly progressive. Facet and ligamentum flavum hypertrophy are present. L3-L4: Minimal disc bulge with slight canal narrowing. Minimal bilateral foraminal narrowing with facet and ligamentum flavum hypertrophy. No interval change. L4-L5: Postsurgical changes are present at this level. Previous spinal stenosis has improved. There is moderate left foraminal narrowing, improved compared to prior exam. Mild right foraminal narrowing is stable. L5-S1: No disc bulge or spinal stenosis. Minimal left foraminal narrowing. No interval change. IMPRESSION: 1. Interval postsurgical fusion at L4-5. 2. Improved appearance of foraminal narrowing at L4-5. Dictated by: Leticia Smallwood M.D. on 11/23/2020 at 17:15 Approved by: Leticia Smallwood M.D. on 11/23/2020 at 17:19
== END ==
PROVIDERS: PCP Family Medicine; Referring Provider Orthopaedic Surgery Orthopaedic Surgery of the Spine; Visit Provider Orthopaedic Surgery Orthopaedic Surgery of the Spine
DX: M48.061 Spinal stenosis, lumbar region without neurogenic claudication (principal); Z98.1 Arthrodesis status
CPT/HCPCS: 72148

== ENCOUNTER 2022-06-16 10:24 | Emergency (ER) | payer MEDICARE, OTHER, SELFPAY ==
[2020-07-19 11:26] VITALS: BMI 28.6
[2022-06-16] VITALS (7 sets, daily range): BP systolic 138–183; BP diastolic 63–84; PULSE 66–78; RESP 14; TEMP 36.6; O2SAT 94–99
[2022-06-16 11:21] LABS: Appearance Urine UA Cloudy; Color Urine UA Orange
[2022-06-16 11:27] LABS: Bacteria Urine Few (2-10); Culture Indicated Urine Specimen Cultured; RBC Urine 1-5/HPF (0-5/HPF); Squamous Epithelial Cell Urine 1-5 /HPF (0-5/HPF); WBC Urine 5-10/HPF (0-5/HPF)
[2022-06-16 11:38] LABS: Alanine Aminotransferase 31 IU/L (<35); Albumin 4.5 g/dL (3.5-5.0); Albumin Globulin Ratio 1.4 (1.0-2.8); Alkaline Phosphatase 83 U/L (38-126); Aspartate Aminotransferase 33 IU/L (14-36); Bilirubin Total 0.6 mg/dL (0.2-1.3); Blood Urea Nitrogen 16 mg/dL (7-17); Calcium 9.4 mg/dL (8.4-10.2); Carbon Dioxide 28 mmol/L (22-32); Chloride 98 mmol/L (98-107); Estimated Glomerular Filt Rate > 60 mL/min (>60); Globulin 3.3 g/dL (1.7-4.1); Glucose 102 mg/dL (80-110); HEMOLYSIS < 15 (0-50); Lipase 146 U/L (23-300); Potassium 3.5 mmol/L (3.4-5.1); Sodium 138 mmol/L (137-145); Total Protein 7.8 g/dL (6.3-8.2)
[2022-06-16 12:00] LABS: Add Manual Diff / Slide Review NO; Basophils Absolute Auto 100 /uL (0-100); Basophils Percent Auto 0.8 % (0-2); Eosinophils Absolute Auto 0 /uL (0-450); Eosinophils Percent Auto 0.5 % (2-4); Hematocrit 41.3 % (36-46); Hemoglobin 13.8 g/dL (12.0-16.0); Lymphocytes Absolute Auto 2100 /uL (1100-4500); Lymphocytes Percent Auto 22.3 % (25-40); Mean Corpuscular HGB Conc 33.3 % (30-36); Mean Corpuscular Hemoglobin 29.1 PG (26-34); Mean Corpuscular Volume 87.2 fL (80-100); Monocytes Absolute Auto 600 /uL (0-900); Monocytes Percent Auto 6.8 % (3-14); Neutrophils Absolute Auto 6500 /uL (1500-7000); Neutrophils Percent Auto 69.6 % (50-75); Platelet Count 266 X10^3/uL (150-400); Red Blood Cell Count 4.74 X10^6/uL (4.0-5.2); Red Cell Distribution Width 13.6 % (11.6-14.8); White Blood Cell Count 9.3 X10^3/uL (4.5-11.0)
--- NOTE | 2022-06-16 12:33 | ED_ITS ---
HPI - Female Genitourinary <Candy Khan PA-C - Last Filed: 06/16/22 15:14> General Chief complaint: Abdominal Pain Stated complaint: vaginal pain & pressure/bladder infection Time Seen by Provider: 06/16/22 11:58 Source: patient Mode of arrival: Ambulatory History of Present Illness HPI Narrative: 66-year-old female with a history of grade 3 rectocele, spinal fusion lumbar, leiomyoma with hysterectomy in 2013 presents with concern for pelvic pressure since at least the 01 of June concern for persistent UTI. Patient states she feels she actually has been ignoring her symptoms for a while and notes that she has been having frequent loose stools an urge to go to the bathroom early in the morning when she gets up saying she goes about 5-6 times with runny stools in the morning but then the rest of the day seems to normalize. This is atypical for her. Around June 01 she started noticing generalized pressure in her pelvis and discomfort with urination including urgency and pain with finishing her stream. Patient states she is also had some chronic issues for the last few months with vaginal dryness and was recently prescribed an estrogen cream by her PCP--she does not feel this has helped her symptoms. She was seen by PCP and they started her on Macrobid which she took for 5 days she is not feel she had any resolution of her symptoms with the antibiotic. She has had a previous cho lecystectomy but states she still has her appendix. She states she is not seen a [facility] or woman's health provider recently and has not recently needed to see her oncologist. She is concerned she may have a persistent UTI but is also worried there could be something else going on. She is planning to see Urology after discussing this with her PCP. She is also hoping to get into see gynecology soon. She denies nausea, vomiting, blood in her urine, blood in her stool, mucus in her stool, dizziness, lightheadedness, change in appetite, unintentional weight loss or any other symptoms. Related Data Home Medications Medication Instructions Recorded Confirmed chlorthalidone 25 mg tablet 25 mg PO DAILY 07/14/20 07/19/20 cholecalciferol (vitamin D3) 50 50 mcg PO DAILY 07/14/20 07/19/20 mcg (2,000 unit) capsule (Vitamin D3) gabapentin 300 mg tablet 300 - 600 mg PO TID 07/14/20 07/19/20 magnesium oxide 400 mg PO DAILY 07/14/20 07/19/20 multivitamin 1 tab PO DAILY 07/14/20 07/19/20 potassium chloride 20 mEq 20 meq PO DAILY 07/14/20 07/19/20 tablet,extended release valacyclovir 500 mg tablet 1,000 mg PO PRN PRN Outbreak 07/14/20 07/14/20 Previous Rx's Medication Instructions Recorded acetaminophen 325 mg tablet 650 mg PO Q6HR PRN Pain, Mild 07/22/20 (1-3) #60 tabs hydroxyzine pamoate 25 mg capsule 25 - 50 mg PO Q6H PRN Nausea And 07/22/20 Vomiting #60 caps oxycodone 10 mg tablet 5 - 10 mg PO Q4-6H PRN Pain, 07/22/20 Severe (7-10) #60 tabs sennosides 8.6 mg tablet (senna) 17.2 mg PO BID PRN constipation 07/22/20 #60 tabs fluconazole 100 mg tablet 100 mg PO DAILY #1 tab 06/16/22 (Diflucan) sulfamethoxazole 400 1 tab PO BID uti 5 days #10 tabs 06/16/22 mg-trimethoprim 80 mg tablet (Bactrim) Allergies Allergy/AdvReac Type Severity Reaction Status Date / Time Penicillins Allergy Severe Cardiac Verified 07/14/20 11:04 Arrest - childhood hydromorphone Allergy Intermediate Rash Verified 07/14/20 11:04 tramadol Allergy Mild Rash Verified 07/14/20 11:04 zolpidem [From Ambien] AdvReac Severe Hallucinati Verified 07/14/20 11:04 ng Review of Systems <Candy Khan PA-C - Last Filed: 06/16/22 15:14> Review of Systems Narrative: Unremarkable except as noted in the HPI Patient History <Candy Khan PA-C - Last Filed: 06/16/22 15:14> Medical History Foot drop, left Hyperlipidemia Hypertension Leiomyosarcoma (~2008) Prediabetes PVC (premature ventricular contraction) Rectocele Spinal stenosis of lumbar region with radiculopathy Trigger finger of thumb Surgical History History of cholecystectomy History of total hysterectomy History of tubal ligation alcohol intake frequency: a few times a month Substance Use Type: does not use Exam <Candy Khan PA-C - Last Filed: 06/16/22 15:14> Narrative Exam Narrative: GENERAL: 66 year old patient appears stated age. Well-developed patient, in mild distress. HEAD: Atraumatic. Normocephalic. EYES: Pupils equal round and reactive. Extraocular motions intact. No scleral icterus. No injection or drainage. ENT: Nose without bleeding, purulent drainage. Airway patent. NECK: Trachea midline. Non tender CARDIOVASCULAR: Regular rate and rhythm without murmurs, gallops, or rubs. RESPIRATORY: Clear to auscultation. Breath sounds equal bilaterally. No wheezes, rales, or rhonchi. GASTROINTESTINAL: Abdomen soft, there is slight tenderness over the right flank, there is slight to moderate tenderness over the right low quadrant and lateral to the umbilicus on the right. There is discomfort with palpation over the bladder/suprapubic tenderness. Otherwise Non-tender, nondistended. /PELVIC: On external examination patient has slight dry skin and slight irritation without notable erythema of the labia majora and minora. On speculum exam tissue appears pink and healthy, she is without a uterus, slight discomfort with speculum exam, there is internal slightly cottage cheesy appearing whitish discharge present. On bimanual exam patient has no increased pain but does have urge to urinate and some rectal discomfort with posterior pressure. Cystocele is not noted on exam, nor is rectocele. EXTREMITIES: No edema or joint tenderness. BACK: Nontender without deformity or crepitance. NEURO: AOx3. SKIN: No rash or erythema of visible areas Initial Vital Signs Initial Vital Signs: Vital Signs Temperature 97.8 F 06/16/22 10:56 Pulse Rate 78 06/16/22 10:56 Respiratory Rate 14 06/16/22 10:56 Blood Pressure 183/84 H 06/16/22 10:56 Pulse Oximetry 99 06/16/22 10:56 Oxygen Delivery Method 06/16/22 10:56 <She Samayoa DO - Last Filed: 06/16/22 18:53> Initial Vital Signs Initial Vital Signs: Vital Signs Temperature 97.8 F 06/16/22 10:56 Pulse Rate 78 06/16/22 10:56 Respiratory Rate 14 06/16/22 10:56 Blood Pressure 183/84 H 06/16/22 10:56 Pulse Oximetry 99 06/16/22 10:56 Oxygen Delivery Method 06/16/22 10:56 Course <Candy Khan PA-C - Last Filed: 06/16/22 15:14> Course Course Narrative: Early in this patient's stay did discuss patient with Dr. Samayoa, ED attending physician. I recommended proceeding with pelvic exam, patient is agreeable to this and desires further evaluation. Did discuss with the patient with her otherwise generally unremarkable labs with the exception of urine, suspect she has a persistent UTI that was not fully treated with Macrobid. She did note she has previously been on combination of Macrobid and Bactrim for UTIs. Pending wet prep anticipate sending her out with further antibiotics plan for follow-up with Urology and Gynecology for further evaluation. Bacterial culture also obtained during pelvic exam. Pt had no concern for STIs Orders Ordered: ED Orders 06/16/22 11:15 Comprehensive Metabolic Panel Stat Lipase Stat Urinalysis and Microscopic Stat Urine Culture Stat 06/16/22 11:50 Complete Blood Count AUTO DIFF Stat 06/16/22 13:53 Genital Culture Stat Wet Prep Tric BV Rayna Stat Vital Signs Vital signs: Vital Signs - 8 hr 06/16/22 10:56 06/16/22 13:05 06/16/22 13:05 Temperature 97.8 F Pulse Rate 78 72 Respiratory Rate 14 Blood Pressure 183/84 H 178/82 H Pulse Oximetry 99 97 Oxygen Delivery Method Room Air Room Air 06/16/22 13:30 06/16/22 13:31 06/16/22 13:31 Temperature Pulse Rate 71 72 Respiratory Rate Blood Pressure 145/79 H Pulse Oximetry 98 98 Oxygen Delivery Method Room Air Room Air 06/16/22 14:21 06/16/22 14:22 06/16/22 14:25 Temperature Pulse Rate 66 Respiratory Rate Blood Pressure 138/63 Pulse Oximetry 94 Oxygen Delivery Method Room Air <She Samayoa DO - Last Filed: 06/16/22 18:53> Orders Ordered: ED Orders 06/16/22 11:15 Comprehensive Metabolic Panel Stat Lipase Stat Urinalysis and Microscopic Stat Urine Culture Stat 06/16/22 11:50 Complete Blood Count AUTO DIFF Stat 06/16/22 13:53 Genital Culture Stat Wet Prep Tric BV Rayna Stat Vital Signs Vital signs: Vital Signs - 8 hr 06/16/22 10:56 06/16/22 13:05 06/16/22 13:05 Temperature 97.8 F Pulse Rate 78 72 Respiratory Rate 14 Blood Pressure 183/84 H 178/82 H Pulse Oximetry 99 97 Oxygen Delivery Method Room Air Room Air 06/16/22 13:30 06/16/22 13:31 06/16/22 13:31 Temperature Pulse Rate 71 72 Respiratory Rate Blood Pressure 145/79 H Pulse Oximetry 98 98 Oxygen Delivery Method Room Air Room Air 06/16/22 14:21 06/16/22 14:22 06/16/22 14:25 Temperature Pulse Rate 66 Respiratory Rate Blood Pressure 138/63 Pulse Oximetry 94 Oxygen Delivery Method Room Air MDM - Female Genitourinary <Candy Khan PA-C - Last Filed: 06/16/22 15:14> Differential Diagnosis Differential diagnosis: Likely urinary tract infection, bacterial vaginosis, vaginitis and other (cystocele, rectocele, vaginal yeast infection) Medical Records Medical records narrative: I have reviewed the patient's medical records. Lab Data Lab results narrative: I reviewed the patient's labs 06/16/22 11:50 06/16/22 11:15 Labs: Lab Results 06/16/22 06/16/22 06/16/22 Range/Units 11:15 11:15 11:50 WBC 9.3 (4.5-11.0) X10^3/uL RBC 4.74 (4.0-5.2) X10^6/uL Hgb 13.8 (12.0-16.0) g/dL Hct 41.3 (36-46) % MCV 87.2 (80-100) fL MCH 29.1 (26-34) PG MCHC 33.3 (30-36) % RDW 13.6 (11.6-14.8) % Plt Count 266 (150-400) X10^3/uL Neut % (Auto) 69.6 (50-75) % Lymph % (Auto) 22.3 L (25-40) % [place] % (Auto) 6.8 (3-14) % Eos % (Auto) 0.5 L (2-4) % Baso % (Auto) 0.8 (0-2) % Neut # (Auto) 6500 (6657-1903) /uL Lymph # (Auto) 2100 (2883-2512) /uL [place] # (Auto) 600 (0-900) /uL Eos # (Auto) 0 (0-450) /uL Baso # (Auto) 100 (0-100) /uL Sodium 138 (137-145) mmol/L Potassium 3.5 (3.4-5.1) mmol/L Chloride 98 (98-107) mmol/L Carbon Dioxide 28 (22-32) mmol/L BUN 16 (7-17) mg/dL Creatinine 0.47 L (0.52-1.04) mg/dL Estimated GFR > 60 (>60) mL/min BUN/Creatinine Ratio 34.0 H (6-22) Glucose 102 (80-110) mg/dL Calcium 9.4 (8.4-10.2) mg/dL Total Bilirubin 0.6 (0.2-1.3) mg/dL AST 33 (14-36) IU/L ALT 31 (<35) IU/L Alkaline Phosphatase 83 (38-126) U/L Total Protein 7.8 (6.3-8.2) g/dL Albumin 4.5 (3.5-5.0) g/dL Globulin 3.3 (1.7-4.1) g/dL Albumin/Globulin Ratio 1.4 (1.0-2.8) Lipase 146 (23-300) U/L Urine Color [place] Urine Appearance Cloudy Urine pH TNP Ur Specific [place] TNP Urine Protein TNP Urine Glucose (UA) TNP Urine Ketones TNP Urine Occult Blood TNP Urine Nitrate TNP Urine Bilirubin TNP Urine Urobilinogen TNP Ur Leukocyte Esterase TNP Urine RBC 1-5/hpf (0-5/HPF) Urine WBC 5-10/hpf H (0-5/HPF) Ur Squamous Epith Cells 1-5 /hpf (0-5/HPF) Urine Bacteria Few (2-10) H (None) Ur Culture Indicated? Specimen cultured MDM Narrative Medical decision making narrative: This is a generally well-appearing 66-year-old female who presents with concern for persistent pelvic pressure for about 2 weeks despite taking Macrobid for UTI. Her history is concerning for lumbar spinal fusion, history of leiomyoma with hysterectomy in 2013 per patient, as well as grade 3 rectocele per patient. Patient's symptoms and history are consistent with persistent UTI and her urine dip today suggestive of this showing bacteria and leukocytes. However do feel she may have additional component of her discomfort which could be related to cystocele or rectocele. Did review this patient's chart, unfortunately much of her medical history is not available in the system, was seen for her leiomyoma at [facility] in [place]. Additionally do not have access to urine culture results or urine dip results from her recent PCP visit. Did discuss options with the patient and given her plan for follow-up with Urology and Gynecology the fact t hat she has a PCP she has been seeing as well, do feel that imaging is not needed today. Pelvic exam is obtained including a wet prep and bacterial culture. Patient has no concern for STIs. She did have some slight tenderness on exam externally but no significant tenderness with bimanual exam. Given the duration of her symptoms low concern for appendicitis or other acute intra- abdominal process. Her labs are also not suggestive of this. Anticipate sending her out on Bactrim. Considered IV antibiotics-ceftriaxone to jump start her infection treatment however she is not septic appearing, and she has significant allergy to penicillins and cephalosporins. Patient's wet prep did return negative. She has been on antibiotics recently and will be on additional antibiotics, we will do dose of Diflucan for her given this. Return precautions provided, follow-up plan discussed, all questions answered. <She Samayoa, - Last Filed: 06/16/22 18:53> Lab Data Labs: Lab Results 06/16/22 06/16/22 06/16/22 Range/Units 11:15 11:15 11:50 WBC 9.3 (4.5-11.0) X10^3/uL RBC 4.74 (4.0-5.2) X10^6/uL Hgb 13.8 (12.0-16.0) g/dL Hct 41.3 (36-46) % MCV 87.2 (80-100) fL MCH 29.1 (26-34) PG MCHC 33.3 (30-36) % RDW 13.6 (11.6-14.8) % Plt Count 266 (150-400) X10^3/uL Neut % (Auto) 69.6 (50-75) % Lymph % (Auto) 22.3 L (25-40) % [place] % (Auto) 6.8 (3-14) % Eos % (Auto) 0.5 L (2-4) % Baso % (Auto) 0.8 (0-2) % Neut # (Auto) 6500 (9395-6820) /uL Lymph # (Auto) 2100 (4897-7250) /uL [place] # (Auto) 600 (0-900) /uL Eos # (Auto) 0 (0-450) /uL Baso # (Auto) 100 (0-100) /uL Sodium 138 (137-145) mmol/L Potassium 3.5 (3.4-5.1) mmol/L Chloride 98 (98-107) mmol/L Carbon Dioxide 28 (22-32) mmol/L BUN 16 (7-17) mg/dL Creatinine 0.47 L (0.52-1.04) mg/dL Estimated GFR > 60 (>60) mL/min BUN/Creatinine Ratio 34.0 H (6-22) Glucose 102 (80-110) mg/dL Calcium 9.4 (8.4-10.2) mg/dL Total Bilirubin 0.6 (0.2-1.3) mg/dL AST 33 (14-36) IU/L ALT 31 (<35) IU/L Alkaline Phosphatase 83 (38-126) U/L Total Protein 7.8 (6.3-8.2) g/dL Albumin 4.5 (3.5-5.0) g/dL Globulin 3.3 (1.7-4.1) g/dL Albumin/Globulin Ratio 1.4 (1.0-2.8) Lipase 146 (23-300) U/L Urine Color [place] Urine Appearance Cloudy Urine pH TNP Ur Specific [place] TNP Urine Protein TNP Urine Glucose (UA) TNP Urine Ketones TNP Urine Occult Blood TNP Urine Nitrate TNP Urine Bilirubin TNP Urine Urobilinogen TNP Ur Leukocyte Esterase TNP Urine RBC 1-5/hpf (0-5/HPF) Urine WBC 5-10/hpf H (0-5/HPF) Ur Squamous Epith Cells 1-5 /hpf (0-5/HPF) Urine Bacteria Few (2-10) H (None) Ur Culture Indicated? Specimen cultured Discharge Plan Departure Patient Disposition: Home Clinical Impression: Acute UTI, Female pelvic pain Activity Restrictions/Additional Instructions: Thank you for letting us be part of your care today in the emergency department. We did do labs today as well as a pelvic exam with some testing for bacteria as well as yeast and bacterial vaginosis. The wet prep returned negative, we are still waiting on the results from the bacterial swab this will take a few days to result. Your urine today was suggestive that you still have a urinary tract infection as you suspected. This was sent for culture which should take a few days to result. I am sending you out on additional oral antibiotics for UTI. I do suspect it is possible that some of your symptoms may be unrelated to UTI such as could be related to your rectocele. I would encourage you to follow-up with your urologist as planned with your PCP as well as see Gynecology given your medical history of distant leiomyoma and hysterectomy. Of course if you do have worsening symptoms or new symptoms of concern do not hesitate to seek re- evaluation. There is no evidence of an emergent or life threatening illness at this time, but follow up with your doctor in 1-2 days is recommended nonetheless to continue to rule out serious underlying causes of your symptoms. Please call the office for an appointment. Please return to the Emergency Department for any worsening or persistent symptoms. Please take medications as directed. Prescriptions: New sulfamethoxazole-trimethoprim [Bactrim] 400-80 mg tablet 1 tab PO BID 5 Days Qty: 10 0RF Rx Instructions: pt not taking potassium fluconazole [Diflucan] 100 mg tablet 100 mg PO DAILY Qty: 1 0RF No Action multivitamin Tablet 1 tab PO DAILY chlorthalidone 25 mg tablet 25 mg PO DAILY valacyclovir 500 mg tablet 1,000 mg PO PRN PRN (Reason: Outbreak) gabapentin 300 mg Tablet 300 - 600 mg PO TID cholecalciferol (vitamin D3) [Vitamin D3] 50 mcg (2,000 unit) Capsule 50 mcg PO DAILY potassium chloride 20 mEq Tablet Extended Release 20 meq PO DAILY magnesium oxide 400 mg magnesium Tablet 400 mg PO DAILY hydroxyzine pamoate 25 mg Capsule 25 - 50 mg PO Q6H PRN (Reason: Nausea And Vomiting) Qty: 60 0RF Rx Instructions: May Also take for Spasm oxycodone 10 mg Tablet 5 - 10 mg PO Q4-6H PRN (Reason: Pain, Severe (7-10)) Qty: 60 0RF sennosides [senna] 8.6 mg Tablet 17.2 mg PO BID PRN (Reason: constipation) Qty: 60 0RF acetaminophen 325 mg Tablet 650 mg PO Q6HR PRN (Reason: Pain, Mild (1-3)) Qty: 60 0RF Referrals: Renee Sal PA-C [Primary Care Provider] - Stand Alone Forms: Patient Portal/API <She Samayoa DO - Last Filed: 06/16/22 18:53> Cosign ED Attending Peter[place] Attestation: I was immediately available in the department for consultation. Documentation has been reviewed. Case discussed her
== END 2022-06-16 15:19 | disposition home or self-care (01) ==
PROVIDERS: Emergency Medicine; Emergency Provider Student in an Organized Health Care Education/Training Program; PCP Physician Assistant
DX: N39.0 Urinary tract infection, site not specified (principal); R10.2 Pelvic and perineal pain
CPT/HCPCS: 36415; 51798; 80053; 81001; 83690; 85025; 87070; 87086; 87205; 87210; 99283

== ENCOUNTER 2023-09-15 11:10 | Inpatient (IN) | payer MEDICARE, OTHER, SELFPAY ==
[2020-07-19 11:26] VITALS: BMI 28.6
[2023-09-15] VITALS (31 sets, daily range): BP systolic 121–155; BP diastolic 53–88; PULSE 64–76; RESP 13–29; TEMP 36.3–36.6; O2SAT 96–100; BMI 28.3
--- NOTE | 2023-09-15 11:18 | DI.RAD.S_ITS ---
PROCEDURE: XR CHEST 1V INDICATIONS: chest pain TECHNIQUE: One view of the chest was acquired. COMPARISON: None. FINDINGS: Surgical changes and devices: None. Lungs and pleura: Lungs are clear. No pleural effusions or pneumothorax. Mediastinum: Mediastinal contours appear normal. Heart size is normal. Bones and chest wall: No suspicious bony lesions. Overlying soft tissues appear unremarkable. IMPRESSION: No acute cardiopulmonary abnormality is seen. Approved by: Michel Connell M.D. on 09/15/2023 at 11:08
[2023-09-15 11:50] LABS: Prothrombin Time 11.3 SECONDS (9.4-12.5)
[2023-09-15 11:53] LABS: PTT Partial Thromboplastin Tim 35 SECONDS (25.1-36.5)
[2023-09-15 11:55] LABS: Alanine Aminotransferase 22 IU/L (<35); Albumin 4.6 g/dL (3.5-5.0); Albumin Globulin Ratio 1.6 (1.0-2.8); Alkaline Phosphatase 74 U/L (38-126); Aspartate Aminotransferase 27 IU/L (14-36); BUN Creatinine Ratio 23.8 (6-22); Bilirubin Total 0.7 mg/dL (0.2-1.3); Blood Urea Nitrogen 19 mg/dL (7-17); Calcium 9.7 mg/dL (8.4-10.2); Carbon Dioxide 29 mmol/L (22-32); Chloride 100 mmol/L (98-107); Creatine Kinase 87 U/L (30-135); Estimated Glomerular Filt Rate > 60 mL/min (>60); Globulin 2.8 g/dL (1.7-4.1); Glucose 141 mg/dL (80-110); HEMOLYSIS < 15 (0-50); Lipase 140 U/L (23-300); Magnesium 1.9 mg/dL (1.6-2.3); Potassium 3.2 mmol/L (3.4-5.1); Sodium 139 mmol/L (137-145); Total Protein 7.4 g/dL (6.3-8.2)
--- NOTE | 2023-09-15 11:58 | ED.CHESTPAIN ---
HPI - Chest Pain General Chief Complaint: Chest Pain Stated Complaint: CHEST PAIN, HIGH BP Time Seen by Provider: 09/15/23 11:58 Source: patient Mode of arrival: Ambulatory Limitations: no limitations History of Present Illness HPI narrative: This is a 67-year-old female history of hypertension on amlodipine and recently started on chlorthalidone in the past month. Patient comes in with complaint of having a sensation of her jaw hurting after dinner and palpitations and fluttering in her chest. She checked her blood pressure she said it is quite elevated in the 215 and 197 systolic over 90s diastolic. Patient checked it several times. She states she has been checking it for the past month because of her new blood pressure medication she is ranged between 170s and 118th but appears to average about 140 for her blood pressure. She states jaw discomfort has resolved. She did not have any chest pain or pressure. No shortness of breath. She describes a fluttering or palpitations sensation in her chest it is almost resolved except for occasional episodes but was throughout the night and into this morning. She denies any diaphoresis no nausea or vomiting, no new swelling in extremities no other GI symptoms. She does note she has had some occasional cramping and Charley horses in her legs enough. Patient states yesterday she was gardening a lot in her yd thought she might have gotten dehydrated she did have 1 alcoholic drink. Patient states she had water Gatorade which seemed to be little bit helpful into aspirin last night very patient is only on amlodipine and chlorthalidone as well as some vitamins. She is to be on lisinopril but had a cough, has allergy to penicillin and adverse reaction Ambien. No prior surgeries reported. No tobacco, occasional alcohol, no recreational drugs. Her primary care is P[facility] Cabrera on [facility]. She is accompanied by her . Related Data Home Medications Medication Instructions Recorded Confirmed chlorthalidone 25 mg tablet 25 mg PO DAILY 07/14/20 09/13/22 cholecalciferol (vitamin D3) 50 50 mcg PO DAILY 07/14/20 09/13/22 mcg (2,000 unit) capsule (Vitamin D3) gabapentin 300 mg tablet 300 - 600 mg PO TID 07/14/20 09/13/22 magnesium oxide 400 mg PO DAILY 07/14/20 09/13/22 multivitamin 1 tab PO DAILY 07/14/20 09/13/22 potassium chloride 20 mEq 20 meq PO DAILY 07/14/20 09/13/22 tablet,extended release Previous Rx's Medication Instructions Recorded acetaminophen 325 mg tablet 650 mg (2 x 325 mg) PO Q6HR PRN 07/22/20 Pain, Mild (1-3) #60 tabs hydroxyzine pamoate 25 mg capsule 25 - 50 mg (1 - 2 x 25 mg) PO Q6H 07/22/20 PRN Nausea And Vomiting #60 caps oxycodone 10 mg tablet 5 - 10 mg (0.5 - 1 x 10 mg) PO 07/22/20 Q4-6H PRN Pain, Severe (7-10) #60 tabs sennosides 8.6 mg tablet (senna) 17.2 mg (2 x 8.6 mg) PO BID PRN 07/22/20 constipation #60 tabs fluconazole 100 mg tablet 100 mg PO DAILY #1 tab 06/16/22 (Diflucan) estradiol 0.01% (0.1 mg/gram) 1 g vaginal QWEEK Vaginal dryness 09/13/22 vaginal cream #42.5 grams valacyclovir 500 mg tablet 500 mg PO BID Herpes 3 days #6 tabs 09/13/22 Allergies Allergy/AdvReac Type Severity Reaction Status Date / Time Penicillins Allergy Severe Cardiac Verified 09/15/23 11:18 Arrest - childhood hydromorphone Allergy Intermediate Rash Verified 09/15/23 11:18 tramadol Allergy Mild Rash Verified 09/15/23 11:18 zolpidem [From Ambien] AdvReac Severe Hallucinati Verified 09/15/23 11:18 ng Review of Systems Review of Systems ROS Unobtainable: All systems reviewed & are unremarkable except as noted in HPI and below Patient History Medical History Rosacea (~2017) Osteopenia (~2009) Cervical spine disease (~2018) Mumps Chicken pox (~1959) Trigger finger of thumb Leiomyosarcoma (~2008) Prediabetes Rectocele Spinal stenosis of lumbar region with radiculopathy (~2014) Foot drop, left PVC (premature ventricular contraction) Hyperlipidemia Hypertension (~05/2008) Surgical History Anesthesia Status post laparoscopic surgery (~2019) History of back surgery (~2019) History of cholecystectomy (~1985) History of total hysterectomy (~2008) History of tubal ligation (~1984) Family History Father Natanael disease Mother Congestive heart failure History of heart disease Brother Bladder cancer Sister [place] disease Grandmother History of heart disease Grandmother History of emphysema Social History household members: spouse Smoking Status: Never smoker alcohol intake: current Smoking Status: Never smoker alcohol intake frequency: holidays/special occasions only Substance Use Type: does not use Exam Narrative Exam Narrative: GENERAL: Alert and oriented x three, well-appearing female in mild distress. HEENT: Head normocephalic, atraumatic, EOMI, pupils reactive, face symmetric, moist mucous membranes NECK: Supple, full range of motion CARDIOVASCULAR: Regular rate and rhythm without murmurs, rubs or gallops. No JVD. No edema bilateral lower extremities. RESPIRATORY: Breath sounds equal bilaterally, no wheezes rales or rhonchi. No tachypnea or accessory muscle use. ABDOMEN: Soft, nontender. Normoactive bowel sounds all 4 quadrants. No guarding or rebound, rigidity, no mass : No CVA tenderness EXTREMITIES: Normal range of motion, no clubbing or edema. Neurovascularly intact NEUROLOGICAL: Cranial nerves II through XII grossly intact. Moving all extremities SKIN: Warm, dry, no petechiae, no rashes or lesions. Initial Vital Signs Initial Vital Signs: Vital Signs Temperature 97.8 F 09/15/23 11:10 Pulse Rate 76 09/15/23 11:10 Respiratory Rate 18 09/15/23 11:10 Blood Pressure 155/88 H 09/15/23 11:10 Pulse Oximetry 97 09/15/23 11:10 Oxygen Delivery Method Room Air 09/15/23 11:10 Course Orders Ordered: ED Orders 09/15/23 11:18 XR chest 1V Stat EKG-12 Lead Stat 09/15/23 11:24 Complete Blood Count AUTO DIFF Stat Comprehensive Metabolic Panel Stat Lipase Stat Magnesium Stat PTT Partial Thromboplastin Khris Stat Prothrombin Time INR Stat Troponin & CK Cardiac Panel Stat 09/15/23 13:53 Trop I [Troponin I] Stat 09/15/23 13:58 EKG-12 Lead Stat Acetaminophen (Acetaminophen 325 Mg Tablet) 650 mg PO Q6H PRN PRN Reason: Fever/Mild Pain (1-3) Aspirin (Aspirin Ec 81 Mg Tablet) 81 mg PO DAILY GREGORIO Atorvastatin Calcium (Atorvastatin 20 Mg Tablet) 20 mg PO BEDTIME GREGORIO Heparin Sodium/Dextrose (Heparin Drip) 25,000 unit in 500 mls @ 19.704 mls/hr IV CONT GREGORIO; Protocol Stop: 09/17/23 09:59 Melatonin (Melatonin 3 Mg Tablet) 6 mg PO BEDTIME PRN PRN Reason: Insomnia Naloxone HCl (Naloxone 0.4 Mg/Ml Vial) 0.2 mg IV Q2MIN PRN PRN Reason: Opiate Reversal Nitroglycerin (Nitroglycerin 0.4 Mg Sl Tab) 0.4 mg SL [id number] PRN PRN Reason: Chest Pain Ondansetron HCl (Ondansetron 4 Mg/2 Ml Inj) 4 mg IV Q4HR PRN PRN Reason: Nausea And Vomiting Polyethylene Glycol (Polyethylene Glycol 3350 17 Gm Powd.Pack) 17 gm PO DAILY PRN PRN Reason: Constipation Potassium Chloride (Potassium Chloride 20 Meq Tab) 40 meq PO TIDWM [facility] Stop: 09/16/23 08:01 Last Admin: 09/15/23 18:54 Dose: 40 meq Documented By: TIANNA Sennosides (Sennosides 8.6 Mg Tablet) 8.6 mg PO BID PRN PRN Reason: Constipation Discontinued Medications Aspirin (Aspirin 81 Mg Chew Tab) 324 mg PO NOW ONE Stop: 09/15/23 11:19 Last Admin: 09/15/23 12:25 Dose: 162 mg Documented By: AFTAB Heparin Sodium (Porcine) (Heparin 5,000 Unit/Ml Vial) 5,000 unit 60 unit/kg (5000 unit) IV NOW ONE Stop: 09/15/23 17:50 Potassium Chloride (Potassium Chloride 20 Meq Tab) 40 meq PO NOW ONE Stop: 09/15/23 12:11 Last Admin: 09/15/23 12:25 Dose: 40 meq Documented By: AFTAB Vital Signs Vital signs: Vital Signs - 8 hr 09/15/23 11:10 09/15/23 11:18 09/15/23 11:30 Temperature 97.8 F Pulse Rate 76 74 69 Respiratory Rate 18 17 Blood Pressure 155/88 H Pulse Oximetry 97 97 96 Oxygen Delivery Method Room Air 09/15/23 11:31 09/15/23 11:31 09/15/23 11:45 Temperature Pulse Rate 69 66 Respiratory Rate 17 21 Blood Pressure 133/62 Pulse Oximetry 96 97 Oxygen Delivery Method 09/15/23 11:45 09/15/23 12:00 09/15/23 12:01 Temperature Pulse Rate 65 66 Respiratory Rate 22 23 Blood Pressure 127/57 L Pulse Oximetry 97 99 Oxygen Delivery Method 09/15/23 12:01 09/15/23 12:15 09/15/23 12:15 Temperature Pulse Rate 64 Respiratory Rate 17 Blood Pressure 125/71 143/72 H Pulse Oximetry 97 Oxygen Delivery Method 09/15/23 12:30 09/15/23 12:30 09/15/23 12:45 Temperature Pulse Rate 66 Respiratory Rate 22 Blood Pressure 137/68 143/66 H Pulse Oximetry 98 Oxygen Delivery Method 09/15/23 12:45 09/15/23 13:00 09/15/23 13:00 Temperature Pulse Rate 67 67 Respiratory Rate 16 16 Blood Pressure 135/63 Pulse Oximetry 99 97 Oxygen Delivery Method 09/15/23 13:15 09/15/23 13:15 09/15/23 13:35 Temperature Pulse Rate 69 76 Respiratory Rate 14 Blood Pressure 136/64 Pulse Oximetry 98 100 Oxygen Delivery Method 09/15/23 13:41 09/15/23 13:41 09/15/23 14:00 Temperature Pulse Rate 70 71 Respiratory Rate 16 20 Blood Pressure 127/60 Pulse Oximetry 99 99 Oxygen Delivery Method 09/15/23 14:30 09/15/23 15:00 09/15/23 15:21 Temperature Pulse Rate 71 71 Respiratory Rate 14 22 Blood Pressure 130/61 Pulse Oximetry 99 99 Oxygen Delivery Method 09/15/23 15:21 09/15/23 15:30 09/15/23 15:30 Temperature Pulse Rate 71 71 Respiratory Rate 23 22 Blood Pressure 132/53 L Pulse Oximetry 100 100 Oxygen Delivery Method 09/15/23 15:45 09/15/23 15:45 09/15/23 16:00 Temperature Pulse Rate 72 74 Respiratory Rate 13 18 Blood Pressure 121/57 L Pulse Oximetry 99 98 Oxygen Delivery Method 09/15/23 16:01 09/15/23 16:01 09/15/23 16:15 Temperature Pulse Rate 74 74 Respiratory Rate 24 14 Blood Pressure 143/64 H Pulse Oximetry 99 98 Oxygen Delivery Method 09/15/23 16:15 09/15/23 16:30 09/15/23 16:30 Temperature Pulse Rate 73 Respiratory Rate 27 H Blood Pressure 136/61 135/64 Pulse Oximetry 99 Oxygen Delivery Method 09/15/23 16:45 09/15/23 16:45 09/15/23 17:00 Temperature Pulse Rate 72 70 Respiratory Rate 29 H 21 Blood Pressure 141/62 H Pulse Oximetry 99 99 Oxygen Delivery Method 09/15/23 17:00 09/15/23 17:16 09/15/23 17:16 Temperature Pulse Rate 72 Respiratory Rate 24 Blood Pressure 131/60 147/64 H Pulse Oximetry 98 Oxygen Delivery Method 09/15/23 17:30 09/15/23 17:30 09/15/23 17:45 Temperature Pulse Rate 76 72 Respiratory Rate 25 H 20 Blood Pressure 143/61 H Pulse Oximetry 99 98 Oxygen Delivery Method 09/15/23 17:45 Temperature Pulse Rate Respiratory Rate Blood Pressure 145/66 H Pulse Oximetry Oxygen Delivery Method MDM - Chest Pain Lab Data 09/15/23 11:24 09/15/23 11:24 Labs: Lab Results 09/15/23 09/15/23 Range/Units 11:24 13:53 WBC 8.2 (4.5-11.0) X10^3/uL RBC 4.99 (4.0-5.2) X10^6/uL Hgb 15.3 (12.0-16.0) g/dL Hct 44.4 (36-46) % MCV 88.9 (80-100) fL MCH 30.6 (26-34) PG MCHC 34.4 (30-36) % RDW 13.8 (11.6-14.8) % Plt Count 252 (150-400) X10^3/uL Neut % (Auto) 58.4 (50-75) % Lymph % (Auto) 32.8 (25-40) % [place] % (Auto) 7.1 (3-14) % Eos % (Auto) 0.8 L (2-4) % Baso % (Auto) 0.9 (0-2) % Neut # (Auto) 4800 (2076-9034) /uL Lymph # (Auto) 2700 (6348-1913) /uL [place] # (Auto) 600 (0-900) /uL Eos # (Auto) 100 (0-450) /uL Baso # (Auto) 100 (0-100) /uL PT 11.3 (9.4-12.5) SECONDS INR 1.0 (0.9-1.3) APTT 35 (25.1-36.5) SECONDS Sodium 139 (137-145) mmol/L Potassium 3.2 L (3.4-5.1) mmol/L Chloride 100 (98-107) mmol/L Carbon Dioxide 29 (22-32) mmol/L BUN 19 H (7-17) mg/dL Creatinine 0.80 (0.52-1.04) mg/dL Estimated GFR > 60 (>60) mL/min BUN/Creatinine Ratio 23.8 H (6-22) Glucose 141 H (80-110) mg/dL Hemoglobin A1c 6.1 H (4.0-6.0) % Calcium 9.7 (8.4-10.2) mg/dL Magnesium 1.9 (1.6-2.3) mg/dL Total Bilirubin 0.7 (0.2-1.3) mg/dL AST 27 (14-36) IU/L ALT 22 (<35) IU/L Alkaline Phosphatase 74 (38-126) U/L Total Creatine Kinase 87 (30-135) U/L Troponin I 0.064 H 0.057 H (0.01-0.034) ng/mL Total Protein 7.4 (6.3-8.2) g/dL Albumin 4.6 (3.5-5.0) g/dL Globulin 2.8 (1.7-4.1) g/dL Albumin/Globulin Ratio 1.6 (1.0-2.8) Triglycerides 177 H (35-150) mg/dL Cholesterol 229 H (140-199) mg/dL LDL Cholesterol, Calc 126 H (<100) mg/dL HDL Cholesterol 68 H (40-60) mg/dL Lipase 140 (23-300) U/L TSH 0.70 (0.47-4.68) uIU/mL Imaging Data Chest x-ray: Radiologist's Impression: Close Chest X-Ray (Signed) Michel Connell - 09/15/23 Lumbar Spine MRI (Signed) Leticia Smallwood - 11/23/20 Lumbar Spine X-Ray (Signed) Anum Caballerong - 07/19/20 Lumbar Spine MRI (Signed) Edison Wynne - 03/10/20 Vascular Ultrasound (Signed) Ronnie Yu - 03/03/20 Radiology Report (Cancelled) ChatodannyHermelinda daidebbie - 11/28/18 Myocardial Perfusion Scan Nuc Med (Signed) Patricia Cooper - 11/27/18 Knee MRI (Signed) Julio C Isbell - 03/16/18 Launch?[address] [address] XRay Report Signed Patient: Winter Mcnamara MR#: [id number] : 1955 Acct:[id number] Age/Sex: 67 / F Date of Service: 09/15/23 Loc: ED Accession Number: [id number] Procedure: XR chest 1V Ordering Provider: She Samayoa D.O. PROCEDURE: XR CHEST 1V INDICATIONS: chest pain TECHNIQUE: One view of the chest was acquired. COMPARISON: None. FINDINGS: Surgical changes and devices: None. Lungs and pleura: Lungs are clear. No pleural effusions or pneumothorax. Mediastinum: Mediastinal contours appear normal. Heart size is normal. Bones and chest wall: No suspicious bony lesions. Overlying soft tissues appear unremarkable. IMPRESSION: No acute cardiopulmonary abnormality is seen. Approved by: Micehl Connell M.D. on 09/15/2023 at 11:08 ECG Data Attestation: I personally reviewed and interpreted this ECG as follows: Prior ECG tracings: available for review Interpretation: Sinus rhythm rate of 75 FL 180 QRS is 76 QTC 444. Q-wave in lead 3, AVF, no other acute changes. Patient has prior from 07/07/2020 which appears similar. MDM Narrative Medical decision making narrative: 67-year-old female history of hypertension recently started on chlorthalidone who presents with complaining of jaw her last night but no real chest pressure, she did feel some fluttering and palpitations she has not had them persistently here but had them occasionally. Vitals here overall appropriate blood pressure appears appropriate here she does note it was elevated last night at home but would like to compare her blood pressure cuff to ours. CBC, normal white count, normal hemoglobin and platelets. INR is 1, sodium is 139 potassium is low at 3.2, BUN 19 with a CO2 of 29 and a chloride of 100, glucose is 141 with normal renal function calcium 9.7 with a Mag of 1.9 otherwise normal LFTs, troponins is indeterminant at 0.064. Repeat is trending downwards at 0.057. EKG shows no acute changes. Chest x-ray is negative. Patient's palpitations related to her hypokalemia. She is on chlorthalidone which could cause some potassium wasting. Discussed with cardiology as patient does have some jaw pain last night which has since resolved but has trending down words troponin although indeterminate range. Spoke with Dr. Mayes, he would recommend heparin drip, Lexiscan stress test he is aware that we do not have stress testing over the weekend for hospitalist is willing to hold till Sunday could get here on Sunday. If not could try to transfer to [facility] to get it on Sunday. Call to [facility] they are currently boarding 19 patients. Patient reluctant to travel farther to other larger facilities would likely logistically be difficult to get transferred with indeterminate troponin trending down words. Spoke with Dr. Rodriguez who kindly accepts for observation, patient is aware that she will have to wait until Sunday to get the stress test we will start heparin here. Discharge Plan Departure Patient Disposition: Admitted as Observation Clinical Impression: Atypical chest pain, Hypokalemia, Palpitations Admit Date/Time: 09/15/23 17:54 Admit Provider: Jerome Rodriguez
[2023-09-15 12:06] LABS: Add Manual Diff / Slide Review NO; Basophils Absolute Auto 100 /uL (0-100); Basophils Percent Auto 0.9 % (0-2); Eosinophils Absolute Auto 100 /uL (0-450); Eosinophils Percent Auto 0.8 % (2-4); Hematocrit 44.4 % (36-46); Hemoglobin 15.3 g/dL (12.0-16.0); Lymphocytes Absolute Auto 2700 /uL (1100-4500); Lymphocytes Percent Auto 32.8 % (25-40); Mean Corpuscular HGB Conc 34.4 % (30-36); Mean Corpuscular Hemoglobin 30.6 PG (26-34); Mean Corpuscular Volume 88.9 fL (80-100); Monocytes Absolute Auto 600 /uL (0-900); Monocytes Percent Auto 7.1 % (3-14); Neutrophils Absolute Auto 4800 /uL (1500-7000); Neutrophils Percent Auto 58.4 % (50-75); Platelet Count 252 X10^3/uL (150-400); Red Blood Cell Count 4.99 X10^6/uL (4.0-5.2); Red Cell Distribution Width 13.8 % (11.6-14.8); White Blood Cell Count 8.2 X10^3/uL (4.5-11.0)
[2023-09-15 12:07] LABS: Troponin I 0.064 ng/mL (0.01-0.034)
[2023-09-15] MEDS: ASPIRIN 81 MG CHEW TAB 324 MG PO (12:25)
[2023-09-15] MEDS: POTASSIUM CHLORIDE 20 MEQ TAB 40 MEQ PO ×2 (12:25→18:54)
[2023-09-15 14:24] LABS: Troponin I 0.057 ng/mL (0.01-0.034)
--- NOTE | 2023-09-15 18:05 | P.HP_ITS ---
History of Present Illness History of Present Illness Date Patient Seen: 09/15/23 Chief complaint: CHEST PAIN, HIGH BP Narrative: Winter Mcnamara is a 67 yo F with PMH of prediabetes, HTN and HLD who presents with jaw pain and palpitations. Patient was lying down when she noticed aching pain in her jaw. She then felt a fluttering sensation in her chest, but no pain. This lasted for several seconds then went away. She Thinks her potassium may be low, as she has taken supplements for this in the past. She check her BP and it was 200 systolic which is quite abnormal for her. She normally runs in 140's, for which she was put on amlodipine a couple weeks ago in addition to her chlorthalidone. She came to the ED where her troponin was foudn to be mildly elevated at 0.064 then decreased to 0.057. Cardiology contacted who recommended admission for echo and nuclear stress test for ischemic burden. Patient currently notes no CP and feels well. She denies SOB, NV, abd pain, vertigo or LE edema. [facility] Medical History Rosacea (~2017) Osteopenia (~2009) Cervical spine disease (~2018) Mumps Chicken pox (~1959) Trigger finger of thumb Leiomyosarcoma (~2008) Prediabetes Rectocele Spinal stenosis of lumbar region with radiculopathy (~2014) Foot drop, left PVC (premature ventricular contraction) Hyperlipidemia Hypertension (~05/2008) Surgical History Anesthesia Status post laparoscopic surgery (~2019) History of back surgery (~2019) History of cholecystectomy (~1985) History of total hysterectomy (~2008) History of tubal ligation (~1984) Family History Father [place] disease Mother Congestive heart failure History of heart disease Brother Bladder cancer Sister Natanael disease Grandmother History of heart disease Grandmother History of emphysema Social History household members: spouse Smoking Status: Never smoker alcohol intake: current Meds Home Medications and Allergies Home Medications Medication Instructions Recorded Confirmed Type chlorthalidone 25 mg tablet 25 mg PO DAILY 07/14/20 09/15/23 History cholecalciferol (vitamin D3) 50 50 mcg PO DAILY 07/14/20 09/15/23 History mcg (2,000 unit) capsule (Vitamin D3) magnesium oxide 400 mg PO DAILY 07/14/20 09/15/23 History multivitamin 1 tab PO DAILY 07/14/20 09/15/23 History acetaminophen 325 mg tablet 650 mg (2 x 325 mg) PO Q6HR PRN 07/22/20 09/15/23 Rx Pain, Mild (1-3) #60 tabs estradiol 0.01% (0.1 mg/gram) 1 g vaginal QWEEK Vaginal dryness 09/13/22 09/15/23 Rx vaginal cream #42.5 grams amlodipine 2.5 mg tablet 2.5 mg PO DAILY 09/15/23 09/15/23 History fluconazole 100 mg tablet 100 mg PO DAILY PRN Disinfection 09/16/23 09/15/23 History (Diflucan) valacyclovir 500 mg tablet 500 mg PO BID PRN Herpes 09/16/23 09/15/23 History fluticasone propionate 50 1 spray intranasal BID PRN 09/17/23 09/17/23 History mcg/actuation nasal allergies spray,suspension meloxicam 15 mg tablet 15 mg PO DAILY PRN Pain (Scale 09/17/23 09/17/23 History Score 4-6) Allergies Allergy/AdvReac Type Severity Reaction Status Date / Time Penicillins Allergy Severe Cardiac Verified 09/15/23 11:18 Arrest - childhood hydromorphone Allergy Intermediate Rash Verified 09/15/23 11:18 tramadol Allergy Mild Rash Verified 09/15/23 11:18 zolpidem [From Ambien] AdvReac Severe Hallucinati Verified 09/15/23 11:18 ng Review of Systems Review of Systems Narrative: All other systems reviewed with the patient and are negative unless otherwise stated. Exam Vital Signs (past 8 hours): - 09/15/23 11:10 09/15/23 11:18 09/15/23 11:30 Temperature 97.8 F Pulse Rate 76 74 69 Respiratory Rate 18 17 Blood Pressure 155/88 H Pulse Oximetry 97 97 96 Oxygen Delivery Method Room Air 09/15/23 11:31 09/15/23 11:31 09/15/23 11:45 Temperature Pulse Rate 69 66 Respiratory Rate 17 21 Blood Pressure 133/62 Pulse Oximetry 96 97 Oxygen Delivery Method 09/15/23 11:45 09/15/23 12:00 09/15/23 12:01 Temperature Pulse Rate 65 66 Respiratory Rate 22 23 Blood Pressure 127/57 L Pulse Oximetry 97 99 Oxygen Delivery Method 09/15/23 12:01 09/15/23 12:15 09/15/23 12:15 Temperature Pulse Rate 64 Respiratory Rate 17 Blood Pressure 125/71 143/72 H Pulse Oximetry 97 Oxygen Delivery Method 09/15/23 12:30 09/15/23 12:30 09/15/23 12:45 Temperature Pulse Rate 66 Respiratory Rate 22 Blood Pressure 137/68 143/66 H Pulse Oximetry 98 Oxygen Delivery Method 09/15/23 12:45 09/15/23 13:00 09/15/23 13:00 Temperature Pulse Rate 67 67 Respiratory Rate 16 16 Blood Pressure 135/63 Pulse Oximetry 99 97 Oxygen Delivery Method 09/15/23 13:15 09/15/23 13:15 09/15/23 13:35 Temperature Pulse Rate 69 76 Respiratory Rate 14 Blood Pressure 136/64 Pulse Oximetry 98 100 Oxygen Delivery Method 09/15/23 13:41 09/15/23 13:41 09/15/23 14:00 Temperature Pulse Rate 70 71 Respiratory Rate 16 20 Blood Pressure 127/60 Pulse Oximetry 99 99 Oxygen Delivery Method 09/15/23 14:30 09/15/23 15:00 09/15/23 15:21 Temperature Pulse Rate 71 71 Respiratory Rate 14 22 Blood Pressure 130/61 Pulse Oximetry 99 99 Oxygen Delivery Method 09/15/23 15:21 09/15/23 15:30 09/15/23 15:30 Temperature Pulse Rate 71 71 Respiratory Rate 23 22 Blood Pressure 132/53 L Pulse Oximetry 100 100 Oxygen Delivery Method 09/15/23 15:45 09/15/23 15:45 09/15/23 16:00 Temperature Pulse Rate 72 74 Respiratory Rate 13 18 Blood Pressure 121/57 L Pulse Oximetry 99 98 Oxygen Delivery Method 09/15/23 16:01 09/15/23 16:01 09/15/23 16:15 Temperature Pulse Rate 74 74 Respiratory Rate 24 14 Blood Pressure 143/64 H Pulse Oximetry 99 98 Oxygen Delivery Method 09/15/23 16:15 09/15/23 16:30 09/15/23 16:30 Temperature Pulse Rate 73 Respiratory Rate 27 H Blood Pressure 136/61 135/64 Pulse Oximetry 99 Oxygen Delivery Method 09/15/23 16:45 09/15/23 16:45 09/15/23 17:00 Temperature Pulse Rate 72 70 Respiratory Rate 29 H 21 Blood Pressure 141/62 H Pulse Oximetry 99 99 Oxygen Delivery Method 09/15/23 17:00 09/15/23 17:16 09/15/23 17:16 Temperature Pulse Rate 72 Respiratory Rate 24 Blood Pressure 131/60 147/64 H Pulse Oximetry 98 Oxygen Delivery Method 09/15/23 17:30 09/15/23 17:30 09/15/23 17:45 Temperature Pulse Rate 76 72 Respiratory Rate 25 H 20 Blood Pressure 143/61 H Pulse Oximetry 99 98 Oxygen Delivery Method 09/15/23 17:45 Temperature Pulse Rate Respiratory Rate Blood Pressure 145/66 H Pulse Oximetry Oxygen Delivery Method Oxygen Delivery Method Room Air Narrative Exam Narrative: GEN: no acute distress HEENT: moist mucous membranes, PERRL NECK: trachea midline, no JVD CV: regular rate and rhythm, no murmurs PULM: clear bilaterally ABD: soft, nontender, nondistended, no organomegaly EXT: warm and well perfused with no edema NEURO: awake, alert, oriented, no focal deficits Objective Labs 09/17/23 04:30 09/17/23 04:30 Labs: Laboratory Results - last 24 hr 09/15/23 09/15/23 11:24 13:53 WBC 8.2 RBC 4.99 Hgb 15.3 Hct 44.4 MCV 88.9 MCH 30.6 MCHC 34.4 RDW 13.8 Plt Count 252 Neut % (Auto) 58.4 Lymph % (Auto) 32.8 [place] % (Auto) 7.1 Eos % (Auto) 0.8 L Baso % (Auto) 0.9 Neut # (Auto) 4800 Lymph # (Auto) 2700 [place] # (Auto) 600 Eos # (Auto) 100 Baso # (Auto) 100 PT 11.3 INR 1.0 APTT 35 Sodium 139 Potassium 3.2 L Chloride 100 Carbon Dioxide 29 BUN 19 H Creatinine 0.80 Estimated GFR > 60 BUN/Creatinine Ratio 23.8 H Glucose 141 H Calcium 9.7 Magnesium 1.9 Total Bilirubin 0.7 AST 27 ALT 22 Alkaline Phosphatase 74 Total Creatine Kinase 87 Troponin I 0.064 H 0.057 H Total Protein 7.4 Albumin 4.6 Globulin 2.8 Albumin/Globulin Ratio 1.6 Lipase 140 Assessment & Plan Assessment & Plan narrative: # atypical chest pain # possible NSTEMI # hypokalemia # HTN # HLD # prediabetes -start heparin drip x48 hours due to elevated in troponin -trend trops -NG PRN for chest pain -check lipids and A1c -tele -echo ordered -nuclear stress on 09/16 per cards -K repletion Code status is full code. DVT prophylaxis with heparin drip. Proxy is Harjinder. I have reviewed home meds and used all available resources to reconcile the home meds. Case discussed with ED physician/APC and patient will be admitted to the hospitalist service for further workup and management. This patient will be admitted as inpatient and will greater than 2 midnights of hospital time to treat chest pain and possible NSTEMI.
[2023-09-15 18:16] LABS: Cholesterol 229 mg/dL (140-199); HDL Cholesterol 68 mg/dL (40-60); LDL Cholesterol Calculated 126 mg/dL (<100); Triglycerides 177 mg/dL (35-150)
[2023-09-15 18:18] LABS: Hemoglobin A1C% w Est Avg Glu 6.1 % (4.0-6.0)
[2023-09-15] MEDS: HEPARIN 5,000 UNIT/ML VIAL 5000 UNIT IV (19:04)
[2023-09-15] MEDS: HEPARIN DRIP 25,000 UNIT/500 ML IV.SOLN 19.704 UNIT IV (19:05)
--- NOTE | 2023-09-15 19:49 | PC.NURSE ---
Admit: Admitted from ED at 1815, no c/p on arrival. Spouse at bedside. Heparin gtt started per protocol with Tye ELLSWORTH. Admit assessment done. Report given to oncoming nurse. Med list, rest of physicians orders, admit skin assessment and admit nursing assess still need to be done.
[2023-09-15] MEDS: ATORVASTATIN 20 MG TABLET PO (20:29)
[2023-09-16] VITALS: BP 128/62; PULSE 75; RESP 17; TEMP 36.1; O2SAT 97
[2023-09-16 01:35] LABS: PTT Partial Thromboplastin Tim 77 SECONDS (25.1-36.5)
[2023-09-16 04:00] VITALS: BP 133/68; PULSE 73; RESP 17; TEMP 36.6; O2SAT 98
[2023-09-16 04:19] LABS: BUN Creatinine Ratio 39.1 (6-22); Blood Urea Nitrogen 18 mg/dL (7-17); Calcium 9.1 mg/dL (8.4-10.2); Carbon Dioxide 27 mmol/L (22-32); Chloride 105 mmol/L (98-107); Estimated Glomerular Filt Rate > 60 mL/min (>60); Glucose 112 mg/dL (80-110); HEMOLYSIS < 15 (0-50); Potassium 3.7 mmol/L (3.4-5.1); Sodium 137 mmol/L (137-145)
[2023-09-16 04:20] LABS: Magnesium 1.9 mg/dL (1.6-2.3)
[2023-09-16 04:29] LABS: Add Manual Diff / Slide Review NO; Basophils Absolute Auto 0 /uL (0-100); Basophils Percent Auto 0.4 % (0-2); Eosinophils Absolute Auto 200 /uL (0-450); Eosinophils Percent Auto 2.3 % (2-4); Hemoglobin 14.3 g/dL (12.0-16.0); Lymphocytes Absolute Auto 3000 /uL (1100-4500); Lymphocytes Percent Auto 47.2 % (25-40); Mean Corpuscular HGB Conc 33.9 % (30-36); Mean Corpuscular Hemoglobin 30.4 PG (26-34); Mean Corpuscular Volume 89.5 fL (80-100); Monocytes Absolute Auto 600 /uL (0-900); Monocytes Percent Auto 9.4 % (3-14); Neutrophils Absolute Auto 2600 /uL (1500-7000); Neutrophils Percent Auto 40.7 % (50-75); Platelet Count 200 X10^3/uL (150-400); Red Blood Cell Count 4.69 X10^6/uL (4.0-5.2); Red Cell Distribution Width 13.7 % (11.6-14.8); White Blood Cell Count 6.4 X10^3/uL (4.5-11.0)
[2023-09-16 04:31] LABS: Troponin I 0.032 ng/mL (0.01-0.034)
[2023-09-16 07:33] VITALS: BP 131/86; PULSE 63; RESP 18; TEMP 36.3; O2SAT 97
--- NOTE | 2023-09-16 08:01 | DI.ECHO.S_ITS ---
[facility]+ [facility] : : [address] : : [place] : : [id number] : : Phone: [phone] Echocardiogram Report + + :Name: JOSEPH REINOSO Study Date: 09/16/2023 Height: 67 in : :[facility] ReadingLocation: Weight: 181 lb : : Gender: Female BSA: 1.9 m2 : :: 1955 Age: 67 yrs BP: 131/86 mmHg: :Reason For Study: Chest pain : : Performed By: July Jo : :Referring: TOMAS WEN : + + Interpretation Summary The left ventricle is normal in size and wall thickness. Left ventricular systolic function appears normal without focal wall motion abnormalities. The ejection fraction is estimated to be 55-60%. Diastolic parameters suggest a relaxation abnormality of the left ventricle, consistent with probable normal filling pressures. The right ventricle grossly appears normal in size with probable normal systolic function. Borderline left atrial enlargement. There is no significant valvular heart disease. The aortic root is normal size. Procedure: A two-dimensional transthoracic echocardiogram with color flow and Doppler was performed. The study quality was technically adequate. There is no prior echocardiogram noted for this patient. The heart rate ranged between 65-67 bpm during the study. Left Ventricle: The left ventricle is normal in size and wall thickness. Left ventricular systolic function appears normal without focal wall motion abnormalities. The ejection fraction is estimated to be 55-60%. Diastolic parameters suggest a relaxation abnormality of the left ventricle, consistent with probable normal filling pressures. Right Ventricle: The right ventricle grossly appears normal in size with probable normal systolic function. Atria: Borderline left atrial enlargement. Right atrial size is normal. The interatrial septum is not well visualized. Mitral Valve: The mitral valve is grossly normal. There is no mitral regurgitation noted. Aortic Valve: The aortic valve is trileaflet. The aortic valve opens well. No aortic regurgitation is present. Tricuspid Valve: The tricuspid valve leaflets are thin and pliable. No tricuspid regurgitation. Pulmonic Valve: The pulmonic valve is not well seen, but is grossly normal. There is no pulmonic valvular regurgitation. There is no significant valvular heart disease. Great Vessels: The aortic root is normal size. The ascending aorta is normal in size. The aortic arch is normal in size. The IVC is of normal diameter and collapses greater than 50% with a sniff. This suggests a low right atrial pressure of 3 mm Hg. Pericardium/ Pleura There is no pericardial effusion. There is no pleural effusion. MMode/2D Measurements & Calculations LVIDd: 4.4 cm LVOT diam: 2.0 cm LVIDs: 2.4 cm Ao root diam: 3.3 cm FS: 46.4 % asc Aorta Diam: 3.4 cm EPSS: 0.41 cm Ao Arch Diam (Prox Trans): 2.8 cm IVSd: 1.0 cm LVPWd: 1.0 cm LV castillo. diameter/BSA (cm/m^2): 2.3 LV sys. diameter/BSA (cm/m^2): 1.2 LA A2 area: 22.0 cm2 IVC diam: 1.7 cm LA A4 area: 15.3 cm2 LA length (vol): 4.5 cm LA vol: 63.8 ml LA vol index: 32.9 ml/m2 Doppler Measurements & Calculations Ao V2 max: 141.8 cm/sec LVOT Max Oniel: 87.4 cm/sec Ao V2 mean: 104.8 cm/sec LV V1 max P.1 mmHg Ao max P.0 mmHg LV V1 VTI: 17.4 cm Ao mean P.7 mmHg AR(I,D): 1.8 cm2 Ao V2 VTI: 31.1 cm AR(V,D): 1.9 cm2 sev ratio: 0.56 AR indexed to BSA (cm^2/m^2): 0.91 MV E max oniel: 50.0 cm/sec TR max oniel: 215.7 cm/sec MV A max oniel: 63.6 cm/sec TR max P.6 mmHg MV E/A: 0.79 PA V2 max: 102.1 cm/sec Med Peak E' Oniel: 6.7 cm/sec PA V2 mean: 77.5 cm/sec E/E' med: 7.4 PA mean P.6 mmHg Lat Peak E' Oniel: 8.5 cm/sec PA pr(Accel): 12.2 mmHg E/E' lat: 5.9 E/e' average: 6.7 MV dec time: 0.25 sec SV(LVOT): 54.7 ml Reading Physician:11:58 AM
[2023-09-16] MEDS: POTASSIUM CHLORIDE 20 MEQ TAB 40 MEQ PO (08:17)
[2023-09-16] MEDS: ASPIRIN EC 81 MG TABLET PO (08:17)
[2023-09-16 08:57] LABS: PTT Partial Thromboplastin Tim 62 SECONDS (25.1-36.5)
--- NOTE | 2023-09-16 10:58 | PM.PN.1 ---
Subjective Subjective Date Patient Seen: 09/16/23 Time Patient Seen: 08:45 Interval history: The patient reports she is feeling well without jaw pain, chest pain or shortness of breath. She has been up and walked without limitation. ER narrative: This is a 67-year-old female history of hypertension on amlodipine and recently started on chlorthalidone in the past month. Patient comes in with complaint of having a sensation of her jaw hurting after dinner and palpitations and fluttering in her chest. She checked her blood pressure she said it is quite elevated in the 215 and 197 systolic over 90s diastolic. Patient checked it several times. She states she has been checking it for the past month because of her new blood pressure medication she is ranged between 170s and 118th but appears to average about 140 for her blood pressure. She states jaw discomfort has resolved. She did not have any chest pain or pressure. No shortness of breath. She describes a fluttering or palpitations sensation in her chest it is almost resolved except for occasional episodes but was throughout the night and into this morning. She denies any diaphoresis no nausea or vomiting, no new swelling in extremities no other GI symptoms. She does note she has had some occasional cramping and Charley horses in her legs enough. Patient states yesterday she was gardening a lot in her yd thought she might have gotten dehydrated she did have 1 alcoholic drink. Patient states she had water Gatorade which seemed to be little bit helpful into aspirin last night very patient is only on amlodipine and chlorthalidone as well as some vitamins. She is to be on lisinopril but had a cough, has allergy to penicillin and adverse reaction Ambien. No prior surgeries reported. No tobacco, occasional alcohol, no recreational drugs. Her primary care is P[facility] Cabrera on [facility]. She is accompanied by her . Exam Vital Signs (past 8 hours): - 09/16/23 04:00 09/16/23 07:33 Temperature 97.8 F 97.3 F L Pulse Rate 73 63 Respiratory Rate 17 18 Blood Pressure 133/68 131/86 Pulse Oximetry 98 97 Oxygen Flow Rate 0 0 Oxygen Delivery Method Room Air Oxygen Flow Rate 0 Narrative Exam Narrative: GENERAL: This is a well-nourished, well-developed patient, in no apparent distress. EYES: Pupils equal round and reactive. Extraocular motions intact. No scleral icterus. No injection or drainage. ENT: Mucous membranes pink and moist. NECK: Trachea midline. No JVD, bruits or lymphadenopathy. Supple, nontender, no meningeal signs. CARDIOVASCULAR: Regular rate and rhythm without murmurs, gallops, or rubs. RESPIRATORY: Clear to auscultation. GASTROINTESTINAL: Abdomen soft, non-tender, nondistended. EXTREMITIES: No clubbing, cyanosis, or edema. NEUROLOGIC: Alert, oriented, speech fluent, full upper and lower motor strength, no focal deficits evident. DERMATOLOGIC: No rashes or skin lesions. Objective Labs 09/16/23 03:30 09/16/23 03:30 Labs: Laboratory Results - last 24 hr 09/15/23 09/15/23 09/16/23 11: 13:53 01:00 WBC 8.2 RBC 4.99 Hgb 15.3 Hct 44.4 MCV 88.9 MCH 30.6 MCHC 34.4 RDW 13.8 Plt Count 252 Neut % (Auto) 58.4 Lymph % (Auto) 32.8 [place] % (Auto) 7.1 Eos % (Auto) 0.8 L Baso % (Auto) 0.9 Neut # (Auto) 4800 Lymph # (Auto) 2700 [place] # (Auto) 600 Eos # (Auto) 100 Baso # (Auto) 100 PT 11.3 INR 1.0 APTT 35 77 H* D Sodium 139 Potassium 3.2 L Chloride 100 Carbon Dioxide 29 BUN 19 H Creatinine 0.80 Estimated GFR > 60 BUN/Creatinine Ratio 23.8 H Glucose 141 H Hemoglobin A1c 6.1 H Calcium 9.7 Magnesium 1.9 Total Bilirubin 0.7 AST 27 ALT 22 Alkaline Phosphatase 74 Total Creatine Kinase 87 Troponin I 0.064 H 0.057 H Total Protein 7.4 Albumin 4.6 Globulin 2.8 Albumin/Globulin Ratio 1.6 Triglycerides 177 H Cholesterol 229 H LDL Cholesterol, Calc 126 H HDL Cholesterol 68 H Lipase 140 TSH 0.70 09/16/23 09/16/23 03:30 08:40 WBC 6.4 RBC 4.69 Hgb 14.3 Hct 42.0 MCV 89.5 MCH 30.4 MCHC 33.9 RDW 13.7 Plt Count 200 Neut % (Auto) 40.7 L Lymph % (Auto) 47.2 H [place] % (Auto) 9.4 Eos % (Auto) 2.3 Baso % (Auto) 0.4 Neut # (Auto) 2600 Lymph # (Auto) 3000 [place] # (Auto) 600 Eos # (Auto) 200 Baso # (Auto) 0 PT INR APTT 62 H D Sodium 137 Potassium 3.7 Chloride 105 Carbon Dioxide 27 BUN 18 H Creatinine 0.46 L Estimated GFR > 60 BUN/Creatinine Ratio 39.1 H Glucose 112 H Hemoglobin A1c Calcium 9.1 Magnesium 1.9 Total Bilirubin AST ALT Alkaline Phosphatase Total Creatine Kinase Troponin I 0.032 Total Protein Albumin Globulin Albumin/Globulin Ratio Triglycerides Cholesterol LDL Cholesterol, Calc HDL Cholesterol Lipase TSH PENDING SALE TO [facility] Medical History Rosacea (~2017) Osteopenia (~2009) Cervical spine disease (~2018) Mumps Chicken pox (~1959) Trigger finger of thumb Leiomyosarcoma (~2008) Prediabetes Rectocele Spinal stenosis of lumbar region with radiculopathy (~2014) Foot drop, left PVC (premature ventricular contraction) Hyperlipidemia Hypertension (~05/2008) Surgical History Anesthesia Status post laparoscopic surgery (~2019) History of back surgery (~2019) History of cholecystectomy (~1985) History of total hysterectomy (~2008) History of tubal ligation (~1984) Family History Father Natanael disease Mother Congestive heart failure History of heart disease Brother Bladder cancer Sister [place] disease Grandmother History of heart disease Grandmother History of emphysema Social History household members: spouse Smoking Status: Never smoker alcohol intake: current Assessment & Plan Assessment & Plan narrative: 1. Chest pain 2. Possible non STEMI with borderline elevated troponin 3. Hypokalemia, improved with repletion 4. Hypertension, adequately controlled. Continue home medications 5. Hyperlipidemia. Elevated with LDL 126. Statin therapy recommended and rosuvastatin 10 mg daily started 6. Prediabetes with borderline hemoglobin A1c 6.1% Plan: -continue heparin drip x48 hours due to elevated in troponin -trend trops -NG PRN for chest pain -tele -echo pending with preliminary results reported unremarkable -nuclear stress on 09/16 per cards Code status is full code. DVT prophylaxis with heparin drip. Proxy is Harjinder. Admitted as inpatient and will greater than 2 midnights of hospital time to treat chest pain and possible NSTEMI. COVID-19 COVID-19 status: Not tested Quality VTE Deep Vein Thrombosis/Pulmonary Embolism Present on Admission: No MIPS - Admit I confirm the patient?s Advance Care Plan is present, Code status is documented, Surrogate decision maker is in patient?s record [If Yes, STOP here]: Yes MIPS - Meds 'Current medications' to include all prescriptions, [id number] products, herbals, cannabis/cannabidiol products, and vitamin/mineral/dietary (nutritional) supplements. I have utilized all available resources to obtain, update, or review the patient?s current medications. [If Yes, STOP here]: Yes PROFEE Charge codes Subsequent inpatient/observation care: [id number]
[2023-09-16 11:14] VITALS: BP 133/91; PULSE 75; RESP 20; TEMP 36.1; O2SAT 98
--- NOTE | 2023-09-16 11:24 | CM.DANOTE ---
Brief DCP Assessment Note Pt is a 67yo F here following chest pains/possible NSTEMI. PCP Renee Sal Payer Medicare and [employer] ENGINEERING MANAGER reviewed EMR. Per chart, lives in [place] with spouse. Indep at baseline. Per hospitalist in morning multidisciplinary rounds, pt to remain here until stress test on 09/16. Echo pending. continue heparin drip due to pt's elevated tropes. anticipate no CM needs. Per RN report, plan for home with spouse at dc. no obvious CM needs. Plan: home with spouse when medically stable. Stress test for Sunday pending. No identified barriers to safe dc home. CM team will follow as needed. CHARU Perry Discharge Planning/Care Management CM Discharge Assessment Start: 09/16/23 11:23 Freq: Status: Active Protocol: Document 09/16/23 11:23 (Rec: 09/16/23 11:24 [id number]) Discharge Planning Assessment Assigned Dermatological Surgeon CHARU Paniagua DPOA/Assigned Designee Name Harjinder spouse Contact Information [phone] Advance Directives? No History Provided By Patient,Significant Other, Medical Record Prior Living Arrangements House Household Members spouse Type of transporation used prior to Drives own vehicle admit Independent with ADL's Yes Is patient alert and oriented? Yes Barriers to Discharge No Discharge Plan Home Transportation Arrangement Patients Harjinder Mcnamara will provide transportation at time of D/C Referrals Initiated None needed Whiteboard Updated in Patient Room with No name and ext. # of Dermatological Surgeon Review Status In Process Please Provide Date Initial DC 09/16/23 Assessment Was Performed Next Review Type Continued Stay Review
[2023-09-16] MEDS: CHLORTHALIDONE 25 MG TABLET PO (11:27)
[2023-09-16] MEDS: AMLODIPINE 5 MG TABLET 2.5 MG PO (11:27)
[2023-09-16 13:02] LABS: Troponin I 0.016 ng/mL (0.01-0.034)
[2023-09-16 15:39] LABS: PTT Partial Thromboplastin Tim 58 SECONDS (25.1-36.5)
[2023-09-16 16:00] VITALS: BP 144/85; PULSE 74; RESP 20; TEMP 36.2; O2SAT 95
--- NOTE | 2023-09-16 17:57 | PC.NURSE ---
Dayshift note: Patient awake, alert, and pleasantly cooperative. Ambulating independently in hallway. NO C/O chest pain/pressure or SOB. Cont on Heparin gtts, no change to rate based on two consecutive therapeutic ranges, and next PTT check in AM /. ECHO performed this shift, Last TROP WNL. Calls appropriately for staff assist.
[2023-09-16] MEDS: HEPARIN DRIP 25,000 UNIT/500 ML IV.SOLN 18.062 UNIT IV (18:49)
[2023-09-16 20:00] VITALS: BP 137/74; PULSE 77; RESP 17; TEMP 35.8; O2SAT 97
--- NOTE | 2023-09-16 20:03 | PC.NURSE ---
Addendum entered by Ela Galvan R.N. 09/17/23 05:35: 0430 PTT: 60. No change in Heparin rate based on two consecutive therapeutic ranges, next PTT check 09/17 AM. Original Note: table games shift manager: Patient is AxOx4, denies pain, N/V, SOB. Ambulating in room independently. Heparin drip running as ordered, no change in rate. Next PTT scheduled for 0500 09/16. NPO at midnight for stress test. Cont tele monitoring in place. Oriented to call-light. Plan of care ongoing.
[2023-09-16] MEDS: ATORVASTATIN 20 MG TABLET 40 MG PO (20:10)
[2023-09-16] MEDS: MELATONIN 3 MG TABLET 6 MG PO (20:12)
[2023-09-16] MEDS: ACETAMINOPHEN 325 MG TABLET 650 MG PO (20:13)
[2023-09-17] VITALS: BP 103/63; PULSE 86; RESP 17; TEMP 36.2; O2SAT 98
--- NOTE | 2023-09-17 00:01 | DI.NM.S_ITS ---
PROCEDURE: NM VERONICA PERF SPECT REST & STR Rest and exercise myocardial perfusion SPECT with gated imaging and ejection fraction RADIOPHARMACEUTICAL: 8.7 mCi Tc-99m sestamibi IV at rest and 27.5 mCi Tc-99m sestamibi IV at peak exercise. A [id number] was performed. INDICATIONS: chest pain TECHNIQUE: Radiopharmaceutical was injected at peak stress test, and also at rest. SPECT images were obtained. SPECT myocardial perfusion images were displayed in short axis, horizontal long axis, and vertical long axis views. Gated images were reviewed using [employer] software. COMPARISON: None. CARDIAC STRESS: A standard Shailesh treadmill exercise tolerance test was performed by the patient under the supervision of an attending staff. The patient exercised for 7 minutes and 34 seconds; 10.1 METS; functional aerobic impairment (MICHAEL) is -24%. Hemodynamic data: There is normal blood pressure and heart rate response to exercise stress. Patient achieved 92% of maximum predicted heart rate at peak exercise. Maximum blood pressure 176/76. Symptoms: Patient denied chest pain during exercise. EKG: No diagnostic EKG changes of ischemia; no ectopy. FINDINGS: Raw data: There is good myocardial labeling by radiotracer. No significant motion artifacts. Cqby-zc-euren ratio is 0.34 (normal is less than 0.38 for sestamibi tracer, and less than 0.50 for thallium tracer). Left ventricle function: Gated images demonstrate normal left ventricle wall thickening. No segmental wall motion abnormality. No transient ischemic dilation; TID is 0.82 (normal less than 1.3). The left ventricle resting end-diastolic volume is 82 mL. Left ventricle stress ejection fraction is 75%; normal values are above 45%. Myocardial perfusion: There is normal distribution of activity in the left and right ventricular myocardium. No fixed or reversible perfusion defects. IMPRESSION: Low risk study. No evidence of exercise-induced ischemia on ECG or SPECT imaging. Normal LV size and function. Normal hemodynamic response. Good exercise capacity. Dictated by: Nuha Sneed D.O. on 09/17/2023 at 16:17 Approved by: Nuha Sneed D.O. on 09/17/2023 at 16:20
[2023-09-17 04:00] VITALS: BP 115/66; PULSE 66; RESP 18; TEMP 36.3; O2SAT 98
[2023-09-17 05:18] LABS: Add Manual Diff / Slide Review NO; Basophils Absolute Auto 100 /uL (0-100); Eosinophils Absolute Auto 100 /uL (0-450); Eosinophils Percent Auto 1.1 % (2-4); Hematocrit 43.6 % (36-46); Hemoglobin 14.7 g/dL (12.0-16.0); Lymphocytes Absolute Auto 2400 /uL (1100-4500); Lymphocytes Percent Auto 40.8 % (25-40); Mean Corpuscular HGB Conc 33.8 % (30-36); Mean Corpuscular Hemoglobin 30.1 PG (26-34); Mean Corpuscular Volume 89.2 fL (80-100); Monocytes Absolute Auto 500 /uL (0-900); Monocytes Percent Auto 8.4 % (3-14); Neutrophils Absolute Auto 2800 /uL (1500-7000); Neutrophils Percent Auto 48.7 % (50-75); Platelet Count 204 X10^3/uL (150-400); Red Blood Cell Count 4.89 X10^6/uL (4.0-5.2); Red Cell Distribution Width 13.6 % (11.6-14.8); White Blood Cell Count 5.8 X10^3/uL (4.5-11.0)
[2023-09-17 05:24] LABS: BUN Creatinine Ratio 34.7 (6-22); Blood Urea Nitrogen 17 mg/dL (7-17); Calcium 9.1 mg/dL (8.4-10.2); Carbon Dioxide 31 mmol/L (22-32); Chloride 102 mmol/L (98-107); Estimated Glomerular Filt Rate > 60 mL/min (>60); Glucose 117 mg/dL (80-110); HEMOLYSIS < 15 (0-50); Potassium 3.9 mmol/L (3.4-5.1); Sodium 138 mmol/L (137-145)
[2023-09-17 05:25] LABS: PTT Partial Thromboplastin Tim 60 SECONDS (25.1-36.5)
[2023-09-17 08:00] VITALS: BP 135/74; PULSE 70; RESP 18; TEMP 36.3; O2SAT 97
--- NOTE | 2023-09-17 08:39 | PC.NURSE ---
Addendum entered by Gwen Alfaro R.N. 09/17/23 14:53: Patient back from stress test earlier and waiting for Dr. Rodriguez to read results. He is aware that they are in. Original Note: Assess- Patient is alert and oriented x4, she denies chest pain and her heart rate is regular. She is npo for her stress test but able to drink water. Patient has been up to ambulate in the halls and is tolerating this well.
[2023-09-17] MEDS: AMLODIPINE 5 MG TABLET 2.5 MG PO (09:15)
[2023-09-17] MEDS: ASPIRIN EC 81 MG TABLET PO (09:15)
[2023-09-17] MEDS: CHLORTHALIDONE 25 MG TABLET PO (09:16)
--- NOTE | 2023-09-17 11:53 | CM.DPNOTE ---
Addendum entered by CHARU Perry 09/17/23 15:40: As of 1529, stress test results pending roll out manager input. ENVIRONMENTAL PROJECT MANAGER met with pt and partner in room. agreeable to dc following cardiology input. transport with partner. Deny CM needs. SL Original Note: DCP Note ENVIRONMENTAL PROJECT MANAGER reviewed EMR. Per hospitalist in morning rounds, stress test today, anticipate potential dc after pending pos stress test results. Pt has been ambulating indep in hallways throughout morning. ENVIRONMENTAL PROJECT MANAGER attempted to meet with pt in room twice, either out of room either on stress test or walking halls. Plan: home with spouse when medically stable. Stress test for today pending. No identified barriers to safe dc home. CM team will follow as needed. CHARU Perry
[2023-09-17 16:00] VITALS: BP 124/77; PULSE 77; RESP 18; TEMP 36.4; O2SAT 97
--- NOTE | 2023-09-17 16:35 | P.DS_ITS ---
History of Present Illness History of Present Illness Chief complaint: CHEST PAIN, HIGH BP Narrative: Winter Mcnamara is a 67 yo F with PMH of prediabetes, HTN and HLD who presents with jaw pain and palpitations. Patient was lying down when she noticed aching pain in her jaw. She then felt a fluttering sensation in her chest, but no pain. This lasted for several seconds then went away. She Thinks her potassium may be low, as she has taken supplements for this in the past. She check her BP and it was 200 systolic which is quite abnormal for her. She normally runs in 140's, for which she was put on amlodipine a couple weeks ago in addition to her chlorthalidone. She came to the ED where her troponin was foudn to be mildly elevated at 0.064 then decreased to 0.057. Cardiology contacted who recommended admission for echo and nuclear stress test for ischemic burden. Patient currently notes no CP and feels well. She denies SOB, [place], abd pain, vertigo or LE edema. Discharge Providers Provider Date of admission: 09/15/23 17:54 Discharge Date: 09/17/23 Primary care physician: Renee Sal PA-C Discharge provider: Jerome Rodriguez DO Summary Hospital Course Discharge Diagnosis: 1. Atypical chest pain 2. Possible non STEMI with borderline elevated troponin 3. Hypokalemia, improved with repletion 4. Hypertension, adequately controlled. Continue home medications 5. Hyperlipidemia. Elevated with LDL 126. Statin therapy recommended and rosuvastatin 10 mg daily started 6. Prediabetes with borderline hemoglobin A1c 6.1% Hospital Course: Admitted for jaw pain and palpitations with mild troponin elevation which quickly trended to normal. Given IV heparin drip x48 hours then had an echo and nuclear stress test which were reassuring. EF 55-60%, borderline LA dilation and some diastolic dysfunction. Her home meds were continued and she will f/up with PCP about starting potassium supplement, statin and getting referral to cardiology. Exam Vital Signs (past 8 hours): - 09/17/23 16:00 Temperature 97.6 F Pulse Rate 77 Respiratory Rate 18 Blood Pressure 124/77 Pulse Oximetry 97 Oxygen Flow Rate 0 Oxygen Delivery Method Room Air Oxygen Flow Rate 0 Narrative Exam Narrative: GENERAL: This is a well-nourished, well-developed patient, in no apparent distress. EYES: Pupils equal round and reactive. Extraocular motions intact. No scleral icterus. No injection or drainage. ENT: Mucous membranes pink and moist. NECK: Trachea midline. No JVD, bruits or lymphadenopathy. Supple, nontender, no meningeal signs. CARDIOVASCULAR: Regular rate and rhythm without murmurs, gallops, or rubs. RESPIRATORY: Clear to auscultation. GASTROINTESTINAL: Abdomen soft, non-tender, nondistended. EXTREMITIES: No clubbing, cyanosis, or edema. NEUROLOGIC: Alert, oriented, speech fluent, full upper and lower motor strength, no focal deficits evident. DERMATOLOGIC: No rashes or skin lesions. Objective Labs 09/17/23 04:30 09/17/23 04:30 Labs: Laboratory Results - last 24 hr 09/17/23 04:30 WBC 5.8 RBC 4.89 Hgb 14.7 Hct 43.6 MCV 89.2 MCH 30.1 MCHC 33.8 RDW 13.6 Plt Count 204 Neut % (Auto) 48.7 L Lymph % (Auto) 40.8 H [place] % (Auto) 8.4 Eos % (Auto) 1.1 L Baso % (Auto) 1.0 Neut # (Auto) 2800 Lymph # (Auto) 2400 [place] # (Auto) 500 Eos # (Auto) 100 Baso # (Auto) 100 APTT 60 H Sodium 138 Potassium 3.9 Chloride 102 Carbon Dioxide 31 BUN 17 Creatinine 0.49 L Estimated GFR > 60 BUN/Creatinine Ratio 34.7 H Glucose 117 H Calcium 9.1 Magnesium 2.0 PFSH Medical History Rosacea (~2017) Osteopenia (~2009) Cervical spine disease (~2018) Mumps Chicken pox (~1959) Trigger finger of thumb Leiomyosarcoma (~2008) Prediabetes Rectocele Spinal stenosis of lumbar region with radiculopathy (~2014) Foot drop, left PVC (premature ventricular contraction) Hyperlipidemia Hypertension (~05/2008) Surgical History Anesthesia Status post laparoscopic surgery (~2019) History of back surgery (~2019) History of cholecystectomy (~1985) History of total hysterectomy (~2008) History of tubal ligation (~1984) Family History Father [place] disease Mother Congestive heart failure History of heart disease Brother Bladder cancer Sister Natanael disease Grandmother History of heart disease Grandmother History of emphysema Social History household members: spouse Smoking Status: Never smoker alcohol intake: current Discharge Plan Discharge Plan Patient Disposition: Home Provider Discharge Comment: All of your heart workup was reassuring including echo, stress test and EKG. Your troponins were mildly elevated which may have been from the high blood pressure spike. You should follow-up with your PCP and get a referral to see cardiology. You may want to start taking daily potassium supplements as well. Discharge orders & Medications Prescriptions: Continued estradiol 0.01 % (0.1 mg/gram) cream 1 g vaginal QWEEK Qty: 42.5 0RF multivitamin Tablet 1 tab PO DAILY chlorthalidone 25 mg tablet 25 mg PO DAILY cholecalciferol (vitamin D3) [Vitamin D3] 50 mcg (2,000 unit) Capsule 50 mcg PO DAILY magnesium oxide 400 mg magnesium Tablet 400 mg PO DAILY acetaminophen 325 mg Tablet 650 mg PO Q6HR PRN (Reason: Pain, Mild (1-3)) Qty: 60 0RF amlodipine 2.5 mg Tablet 2.5 mg PO DAILY valacyclovir 500 mg tablet 500 mg PO BID PRN (Reason: Herpes) fluconazole [Diflucan] 100 mg tablet 100 mg PO DAILY PRN (Reason: Disinfection) meloxicam 15 mg tablet 15 mg PO DAILY PRN (Reason: Pain (Scale Score 4-6)) fluticasone propionate 50 mcg/actuation spray,suspension 1 spray intranasal BID PRN (Reason: allergies) Follow up/Referrals: Renee Sal PA-C [Primary Care Provider] - 2 Weeks Visit Report/Discharge Packet Instructions: Heart Attack in Women Stand Alone Forms: Patient Portal/API, Stroke Signs & Symptoms Discharge Data Primary Care Provider: Renee Sal Quality VTE Deep Vein Thrombosis/Pulmonary Embolism Present on Admission: No
== END 2023-09-17 17:10 | disposition home or self-care (01) | DRG 282 ==
LOC: ED 17:52 → AC 09-16 12:22
PROVIDERS: Internal Medicine; Admitting Provider Student in an Organized Health Care Education/Training Program; Emergency Provider Emergency Medicine; PCP Physician Assistant; Referring Provider Emergency Medicine; Visit Provider Student in an Organized Health Care Education/Training Program
DX: I21.4 Non-ST elevation (NSTEMI) myocardial infarction (principal); E87.6 Hypokalemia; I10 Essential (primary) hypertension; E78.5 Hyperlipidemia, unspecified; R73.03 Prediabetes
CPT/HCPCS: 36415; 71045; 78452; 80048; 80053; 80061; 82550; 83036; 83690; 83735; 84443; 84484; 85025; 85610; 85730; 93005; 93010; 93017; 93306; 96374; 99284; 99285; A9502; J1644

== ENCOUNTER → 2023-12-23 12:24 | Outpatient (CLI) | payer MEDICARE, OTHER, SELFPAY ==
[2023-09-15 18:02] VITALS: BMI 28.3
== END ==
PROVIDERS: PCP Physician Assistant; Visit Provider Physician Assistant Surgical
DX: R30.0 Dysuria (principal)
CPT/HCPCS: 87077; 87086; 87186

== ENCOUNTER → 2024-01-15 12:07 | Outpatient (CLI) | payer MEDICARE, OTHER, SELFPAY ==
[2023-09-15 18:02] VITALS: BMI 28.3
[2024-01-15 13:20] LABS: Appearance Urine UA CLEAR; Bilirubin Urine UA NEGATIVE (NEGATIVE); Color Urine UA YELLOW; Glucose Urine UA NEGATIVE (Negative); Ketones Urine UA NEGATIVE (NEGATIVE); Leukocyte Esterase Urine UA TRACE (NEGATIVE); Nitrite Urine UA NEGATIVE (Negative); Occult Blood Urine UA NEGATIVE (Negative); Protein Urine UA NEGATIVE (Negative); Urobilinogen Urine UA 0.2 E.U./dL (0.2)
[2024-01-15 13:44] LABS: Bacteria Urine None Seen; Culture Indicated Urine Cult Not Indicated; RBC Urine None Seen (0-5/HPF); Squamous Epithelial Cell Urine None Seen (0-5/HPF); Urine Volume 10mL (spun); WBC Urine 0-1/HPF (0-5/HPF)
== END ==
PROVIDERS: PCP Physician Assistant; Referring Provider Obstetrics & Gynecology; Visit Provider Obstetrics & Gynecology
DX: R30.0 Dysuria (principal)
CPT/HCPCS: 81001; 87077; 87086; 87186

== ENCOUNTER → 2024-02-01 10:59 | Outpatient (CLI) | payer MEDICARE, OTHER, SELFPAY ==
[2023-09-15 18:02] VITALS: BMI 28.3
== END ==
PROVIDERS: PCP Physician Assistant; Referring Provider Obstetrics & Gynecology; Visit Provider Obstetrics & Gynecology
DX: R30.0 Dysuria (principal)
CPT/HCPCS: 87086

== ENCOUNTER → 2024-07-06 10:35 | Outpatient (CLI) | payer MEDICARE, OTHER, SELFPAY ==
[2023-09-15 18:02] VITALS: BMI 28.3
== END ==
PROVIDERS: PCP Physician Assistant; Visit Provider Physician Assistant Surgical
DX: R30.0 Dysuria (principal)
CPT/HCPCS: 87077; 87086; 87186

== ENCOUNTER → 2024-09-05 09:44 | Outpatient (CLI) | payer MEDICARE, OTHER, SELFPAY ==
[2023-09-15 18:02] VITALS: BMI 28.3
== END ==
LOC: LAB 09:45
PROVIDERS: PCP Physician Assistant; Visit Provider Obstetrics & Gynecology
DX: R39.9 Unspecified symptoms and signs involving the genitourinary system (principal); N39.0 Urinary tract infection, site not specified
CPT/HCPCS: 87077; 87086

== ENCOUNTER 2024-09-15 12:09 | Day surgery (SDC) | payer MEDICARE, OTHER, SELFPAY ==
[2023-09-15 18:02] VITALS: BMI 28.3
[2024-09-10 09:56] VITALS: BMI 29.0
[2024-09-15] VITALS (12 sets, daily range): BP systolic 103–153; BP diastolic 62–90; PULSE 61–81; RESP 12–18; TEMP 36.1–36.6; O2SAT 94–100; BMI 28.1
[2024-09-15] MEDS: ACETAMINOPHEN 325 MG TABLET 975 MG PO (12:46)
[2024-09-15] MEDS: LACTATED RINGERS 1,000 ML 42 ML IV ×2 (12:59→15:49)
--- NOTE | 2024-09-15 13:27 | PM.PREOP ---
Pre-operative Note Interval Note History & Physical reviewed/Exam performed by Physician: Yes Changes to H&P: No H&P completed within 30 days and has changed as indicated here:: 09/05/24
[2024-09-15] MEDS: CLINDAMYCIN 900 MG/50 ML PIGGYBACK 50 MG IV (13:55)
--- NOTE | 2024-09-15 14:14 | SUR.OPER ---
Lithotomy on padded OR bed, head on pillow, arms secured on padded arm boards at <90 degrees abduction. Legs secured in padded yellow fins stirrups.
[2024-09-15] MEDS: BUPIVACAINE 0.25% W/ EPI 30 ML VIAL INJ (14:21)
--- NOTE | 2024-09-15 14:55 | PM.GYNOP.1 ---
Operative Date/Time/Diagnoses Date of procedure: 09/15/24 Time of procedure: 14:55 Pre-op diagnosis: Symptomatic rectocele Post-op diagnosis: same Procedure & Clinicians Procedure: Procedures Operation Date: 09/15/24 13:30 Actual Procedure Side Surgeon p Rectocele Repair Airam Higginbotham MD Indications: 68-year-old with a symptomatic rectocele Surgeon: Airam Higginbotham Anesthesia Type: General and Local Operative Notes Findings: Third-degree rectocele Closure Type: primary Specimen(s): none Estimated blood loss (mL): 50 Blood products transfused: none Procedure in detail: The patient was taken to the operating room where she was placed in the dorsal supine position. After adequate general endotracheal anesthesia was achieved, she was placed in the dorsal lithotomy position, and prepped and draped in the usual sterile fashion. A time-out was performed. Allis clamps were placed at the mucocutaneous junction at the introitus. 6 mL of half percent Marcaine with epinephrine were injected. An incision was made with a #10 blade between the 2 Allis clamps, and a triangular piece of skin and underlying subcutaneous tissue was removed. Allis clamps were placed in the midline of the rectocele. 10 mL of half percent Marcaine with epinephrine were injected submucosally. The mucosa was undermined using the Metzenbaum scissors and the mucosa incised in the midline, moving the wide Allis clamps to the mucosal edges. The underlying fascia was dissected off of the mucosa using an open moistened Ray-Andria and a #10 blade. The fascia was reapproximated using 0 Vicryl with a series of horizontal mattress sutures. The excess vaginal mucosa was excised. The mucosa was closed using a series of simple interrupted sutures with 2-0 Vicryl including the underlying fascia to close the space. On the perineum 0 Vicryl was used to reapproximate the levator muscle. The subcutaneous layer was closed with 2-0 Vicryl. The skin was closed with 2-0 chromic with simple interrupted sutures.. Hemostasis was achieved. A Betadine moistened vaginal pack was placed into the vagina. A rectal exam was done and there were no sutures palpable in the rectum. The urine was clear. Sponge, lap, and instrument counts were correct x-2. The patient tolerated the procedure well, was taken to PACU in stable condition.m Complications: none Post-operative Condition: stable Disposition: PACU Plan for aftercare: To acute care after recovery
[2024-09-15] MEDS: OXYCODONE IR 5 MG TABLET PO ×2 (15:05→20:12)
[2024-09-15] MEDS: ONDANSETRON 4 MG/2 ML INJ IV (15:05)
[2024-09-15] MEDS: HYDROMORPHONE 1 MG INJ IV ×2 (15:07→15:24)
[2024-09-15] MEDS: hydrOXYzine 50 MG/ML INJ 25 MG IM (15:08)
[2024-09-15] MEDS: fentaNYL 100 MCG/2 ML INJ IV (15:39)
[2024-09-15] MEDS: LACTATED RINGERS 1,000 ML 21 ML IV (15:50)
[2024-09-15] MEDS: IBUPROFEN 600 MG TABLET PO ×2 (18:04→21:50)
[2024-09-15] MEDS: ACETAMINOPHEN 325 MG TABLET 650 MG PO ×2 (18:05→21:49)
[2024-09-15] MEDS: LACTATED RINGERS 1,000 ML 100 ML IV (20:12)
[2024-09-15] MEDS: hydrOXYzine HCL 25 MG TABLET PO (20:30)
[2024-09-15] MEDS: DOCUSATE 100 MG CAPSULE 200 MG PO (20:30)
[2024-09-16] MEDS: ACETAMINOPHEN 325 MG TABLET 650 MG PO (03:20)
[2024-09-16] MEDS: IBUPROFEN 600 MG TABLET PO ×2 (03:20→09:20)
[2024-09-16] MEDS: OXYCODONE IR 5 MG TABLET PO ×2 (03:21→09:20)
[2024-09-16 05:24] LABS: Add Manual Diff / Slide Review NO; Basophils Absolute Auto 100 /uL (0-100); Basophils Percent Auto 0.5 % (0-2); Eosinophils Absolute Auto 0 /uL (0-450); Hematocrit 37.5 % (36-46); Hemoglobin 12.9 g/dL (12.0-16.0); Lymphocytes Absolute Auto 1500 /uL (1100-4500); Mean Corpuscular HGB Conc 34.3 % (30-36); Mean Corpuscular Hemoglobin 30.2 PG (26-34); Monocytes Absolute Auto 900 /uL (0-900); Monocytes Percent Auto 6.7 % (3-14); Neutrophils Absolute Auto 10300 /uL (1500-7000); Neutrophils Percent Auto 80.8 % (50-75); Platelet Count 244 X10^3/uL (150-400); Red Blood Cell Count 4.27 X10^6/uL (4.0-5.2); Red Cell Distribution Width 13.3 % (11.6-14.8); White Blood Cell Count 12.7 X10^3/uL (4.5-11.0)
[2024-09-16 08:38] VITALS: BP 126/84; O2SAT 99
[2024-09-16] MEDS: AMLODIPINE 5 MG TABLET 2.5 MG PO (09:21)
[2024-09-16] MEDS: DOCUSATE 100 MG CAPSULE 200 MG PO (09:21)
[2024-09-16] MEDS: CHLORTHALIDONE 25 MG TABLET PO (09:23)
--- NOTE | 2024-09-16 09:43 | P.DS_ITS ---
History of Present Illness History of Present Illness Date Patient Seen: 09/16/24 Time Patient Seen: 08:20 Chief complaint: SDC Narrative: Patient is a 68-year-old postop day # 1 status post posterior repair. Discharge Providers Provider Date of admission: 09/15/24 15:30 Discharge Date: 09/16/24 Primary care physician: Renee Sal PA-C Discharge provider: Airam Higginbotham MD Summary Hospital Course Discharge Diagnosis: Symptomatic rectocele Posterior repair Hospital Course: Patient is a 68-year-old postop day # 1 status post posterior repair. Patient has Conde catheter was removed this morning and she was able to empty her bladder. She has tolerating a diet. No nausea or vomiting. Pain is well controlled. Vaginal bleeding is minimal. She is complaining of some tailbone pain. She has been using ice for this. Status at Discharge Cognitive/behavioral status at discharge: oriented Functional status at discharge: independent ambulation Overall status at discharge: patient is progressing back to baseline Time Spent with Patient Time spent: Less than 30 minutes Exam Vital Signs (past 8 hours): - 09/16/24 08:38 Blood Pressure 126/84 Pulse Oximetry 99 Oxygen Flow Rate 0 Oxygen Delivery Method Room Air Oxygen Flow Rate 0 Narrative Exam Narrative: Generally: Patient is sitting up in bed, eating breakfast, no acute distress Lungs: Clear to auscultation bilaterally Cardiovascular: Regular rate and rhythm Perineum: Small amount of old blood Extremities: No edema Objective Labs 09/16/24 05:00 Labs: Laboratory Results - last 24 hr 09/16/24 05:00 WBC 12.7 H RBC 4.27 Hgb 12.9 Hct 37.5 MCV 88.0 MCH 30.2 MCHC 34.3 RDW 13.3 Plt Count 244 Neut % (Auto) 80.8 H Lymph % (Auto) 12.0 L Baca % (Auto) 6.7 Eos % (Auto) 0.0 L Baso % (Auto) 0.5 Neut # (Auto) 75882 H Lymph # (Auto) 1500 Baca # (Auto) 900 Eos # (Auto) 0 Baso # (Auto) 100 PFSH Medical History (Updated 01/20/24 @ 19:19 by Airam Higginbotham MD) Rosacea (~2017) Osteopenia (~2009) Cervical spine disease (~2018) Mumps Chicken pox (~1959) Trigger finger of thumb Leiomyosarcoma (~2008) Prediabetes Rectocele Spinal stenosis of lumbar region with radiculopathy (~2014) Foot drop, left PVC (premature ventricular contraction) Hyperlipidemia Hypertension (~05/2008) Surgical History (Updated 09/10/24 @ 10:08 by Karis Thomas RN) Anesthesia Status post laparoscopic surgery (~2019) History of back surgery (07/19/20) History of cholecystectomy (~1985) History of total hysterectomy (~2008) History of tubal ligation (~1984) Family History Father [place] disease Mother Congestive heart failure History of heart disease Brother Bladder cancer Sister [place] disease Grandmother History of heart disease Grandmother History of emphysema Social History household members: spouse Smoking Status: Never smoker alcohol intake: never Discharge Assessment & Plan Assessment and Plan Assessment: Postop day # 1 status post posterior repair Patient doing very well Plan of Treatment: Discharged to home Follow-up in 2 weeks for telehealth postop appointment Call with fever, chills, or bleeding vaginally more than spotting to light No heavy lifting Discharge Plan Discharge Plan Patient Disposition: Home Provider Discharge Comment: Call with fever, chills, or bleeding vaginally more than spotting to light Ibuprofen 600 mg every 6 hours as needed Tylenol 650 mg every 6 hours as needed Stool softeners to keep bowel movements soft Discharge orders & Medications Prescriptions: New oxycodone 5 mg tablet 5 mg PO Q6H PRN (Reason: pain) Qty: 10 0RF Continued phenazopyridine [Pyridium] 200 mg tablet 200 mg PO TID PRN (Reason: pain) Qty: 6 0RF methenamine hippurate 1 gram tablet 1 g PO BID terbinafine HCl 250 mg tablet 250 mg PO DAILY aspirin [Adult Low Dose Aspirin] 81 mg tablet,delayed release (DR/EC) 81 mg PO DAILY hydroxyzine HCl 50 mg tablet 25 mg PO BEDTIME multivitamin Tablet 1 tab PO DAILY chlorthalidone 25 mg tablet 25 mg PO DAILY cholecalciferol (vitamin D3) [Vitamin D3] 50 mcg (2,000 unit) Capsule 50 mcg PO DAILY acetaminophen 325 mg Tablet 650 mg PO Q6HR PRN (Reason: Pain, Mild (1-3)) Qty: 60 0RF amlodipine 2.5 mg Tablet 2.5 mg PO DAILY valacyclovir 500 mg tablet 500 mg PO BID PRN (Reason: Herpes) meloxicam 15 mg tablet 15 mg PO DAILY PRN (Reason: Pain (Scale Score 4-6)) Discontinued estradiol 0.01 % (0.1 mg/gram) cream 1 g vaginal DAILY Qty: 42.5 3RF Rx Instructions: 1 gm daily until surgery and then twice a week Follow up/Referrals: Renee Sal PA-C [Primary Care Provider] - Airam Higginbotham MD [Physician] - As previously scheduled (Patient has postoperative visit already scheduled) Diet/Activity/Treatments Diet: Regular Activity: No heavy lifting, nothing more than a gal of milk Nothing in the vagina Skin/Wound/Dressing Care Report to your healthcare provider any signs of infection, such as:: chills, fever, increased pain and unusual drainage Visit Report/Discharge Packet Instructions: DI for Cystocele and Rectocele Repair, DI for Prescription Opioid Use Stand Alone Forms: Patient Portal/API, Stroke Signs & Symptoms, Surgery Discharge Discharge Data Primary Care Provider: Renee Sal Attending Provider: Airam Higginbotham Admit Date/Time: 09/15/24 15:30 Quality VTE Deep Vein Thrombosis/Pulmonary Embolism Present on Admission: No IH PROFEE Charge Codes Discharge inpatient/observation: [id number]
--- NOTE | 2024-09-16 10:46 | PC.NURSE ---
Patient voided earlier, she had a dao pad on with no bleeding. Pain level a 6/10 and given oxycodone. Patient did get up to the bathroom on her own and moved well but her pain was severe and she stated that she felt like she was going to pass out. Percolone helpful to patient, blood pressure checked 136/72 and patient instantly felt better. She is now reading to discharge home.
--- NOTE | 2024-09-16 13:30 | CM.DANOTE ---
Patient is a 68 yo female who [place] [facility] [place] planned Rectocele [place]. Pt has [employer] for insurance and her PCP is Renee Sal. EMR was reviewed. Per OBGYN, pt tolerated surgery well and lowe was disontinued this morning and pain managed and medically stable to d/c home today with outpt f/u in 2 weeks. Per RN, pt tolerating diet and voided independently and pain managed and no concerns noted at this time. Discharge instructions provided and spouse to provide transport home. SW met bedside briefly with pt and explained role and she confirms she lives in [place] with her spouse and is active and independent at baseline. Pt drives and does not use DME to ambulate and denies hx of HH or SNF. Pt confirms spouse is able to assist at d/c and she does not anticipate any needs and preference is home today. Pt ambulated independent in room. Plan: Patient to d/c home today via spouse POV and outpt f/u and no further SW needs at this time. CHARU Patino Discharge Planning/Care Management CM Discharge Assessment Start: 09/15/24 15:31 Freq: Status: Discharge Protocol: Document 09/16/24 13:28 BF (Rec: 09/16/24 13:29 BF [id number]) Discharge Planning Assessment Assigned Radiopharmacist CHARU Nazario DPOA/Assigned Designee Name spouse Harjinder Contact Information [phone] Advance Directives? No Advance Directives on File No History Provided By Patient,Significant Other, Medical Record Has Patient been admitted in last 30 No days? Prior Living Arrangements House Household Members spouse Type of transporation used prior to Drives own vehicle admit Independent with ADL's Yes Is patient alert and oriented? Yes Caregiver for Another No Barriers to Discharge No Discharge Plan Home Transportation Arrangement Patients Harjinder Mcnamara will provide transportation at time of D/C Referrals Initiated None needed Whiteboard Updated in Patient Room with Yes name and ext. # of Radiopharmacist Review Status In Process Please Provide Date Initial DC 09/16/24 Assessment Was Performed Next Review Type Continued Stay Review Pre-Anesthesia Assessment Start: 09/10/24 09:56 Freq: Status: Complete Protocol: Document 09/10/24 09:56 LB (Rec: 09/10/24 10:09 LB [id number]) Pre-Anesthesia Assessment PAC Comment 09/10/24 Chart review. Patient Information Reviewed Via Chart Review Diagnostic Results Urinalysis Comment 07/06/24 at . Primary Care Provider Renee Sal Seen Specialist in Last 12 Months Yes Specialist Seen Marker Delivery,Other Primary Language Tanzanian Preferred Language Tanzanian Court Supervisor Required No Height 170.18 cm Weight 83.915 kg Body Mass Index (BMI) 29.0 Hx Blood Transfusions Yes Hx Blood Transfusion Reaction No Anesthesia Review Requested No College Athlete No alcohol intake current Smoking Status Never smoker Substance Use Type [#R] does not use Patient is completely paralyzed or No completely immobile Is patient on oxygen? No Hx Sleep Apnea No Currently Taking a Beta Dangelo No Anti-Coagulant Therapy Yes: Aspirin 81mg daily. Cardiac Testing Yes: 09/17/23 stress test; 04/29 echo. Hx Pacemaker/ICD No Bladder Pattern Frequency,Urgency Diabetes Prediabetes. Patient No Lactating No Hx Drug Resistant Organism No Received a COVID vaccine? Yes Marital Status Lives With spouse Patient Discharge Plan Description Return Home Emergency Contact Name - Harjinder Mcnamara Emergency Contact Advance Directives on File No
== END 2024-09-16 11:15 | disposition home or self-care (01) ==
LOC: OR 14:55 → AC 15:49
PROVIDERS: PCP Physician Assistant; Referring Provider Obstetrics & Gynecology; Visit Provider Obstetrics & Gynecology
PROC: (CPT 57250; principal; 2024-09-15 13:30)
DX: N81.6 Rectocele (principal)
CPT/HCPCS: 57250; 36415; 85025; G0378; A9270; J1100; J1171; J1885; J2405; J2704; J3010; J3410

== ENCOUNTER → 2024-10-09 15:38 | Outpatient (CLI) | payer MEDICARE, OTHER, SELFPAY ==
[2024-09-15 15:31] VITALS: BMI 28.1
[2024-10-11 15:11] LABS: Candida species Negative (Negative); Gardnerella vaginalis Negative (Negative); Trichomoas vaginalis Negative (Negative)
== END ==
LOC: LAB 15:39
PROVIDERS: PCP Physician Assistant; Visit Provider Obstetrics & Gynecology
DX: N89.8 Other specified noninflammatory disorders of vagina (principal)
CPT/HCPCS: 87480; 87510; 87660